=== PATIENT | female | born 1945 | race Caucasian/White ===

== ENCOUNTER 2025-02-01 12:29 | Emergency (ER) | payer MEDICARE, SELFPAY ==
--- OUTSIDE RECORDS SUMMARY | 2024-05-27 05:30 | XMS_ITS ---
Author Organization [facility] Address [address], [address] [place] [address] Care Team Providers Care Nanotechnology Technician Name Role Phone Lorena MAHONEY, Kris Primary Care Provider Unavail able Tom Carl Unavailable [phone] Allergies No Known Allergies REASON FOR VISIT 3 month ear cleaning Medications Medication SIG (Take, Route, Fr equency, Duration) Notes Start Date End Date Status Calcium 600+D Active Klor-Con 10 Active furosemide Active omeprazole Active Vitamin B-100 Active Coreg Active Trelegy Ellipta Acti ve losartan Active chondroitin-glucosamine Active Eliquis Active multivitamin Active Prolia Active Vital Signs Temperature 97.0 degrees Fahrenheit 05/27/20 24 Blood pressure systolic 144 mm Hg 05/27/20 24 Blood pressure diastolic 73 mm Hg 024 Height 65 in 05/27/2024 Weight 227.4 lbs 05/27/2024 BMI 37.84 kg/m2 05/27/2024 Encounters Encounter Location Date Provider Diagnosis [facility] [place] [address], [address] [place] [address] 05/27/2024 Tom Carl Impacted cerumen, bilateral H61.23 Assessments Encounter Date Diagnosis (ICD Code) Assessment Notes Treatment Notes Treatment Clinical Notes Section Notes 05/27/2024 Impacted cerumen, bilateral (ICD-10 - H61.23) Cerumen removed. Bilateral recurrent cerumen. Plan Of Treatment Treatment Notes Assessment Notes Impacted cerumen, bilateral Cerumen femi samuel. Next Appt Details Follow Up: 3 months, Reason: Provider Name:Tom Basilio, 03/17/2025 11:30:00 AM, [address], [facility] [address], [place], [address], Procedure Notes * Category Sub-Category Detail Notes Removal cerumen impaction partial, bilater al EAC removal removed completely, performed under otomicroscopy TM status normal canal status normal Progress Notes * Cristela KIRK BDOB: [birth year] (78 yo F)Acc No.[id number]:05/27/2024 Patient: Cristela RAZA Provider: Breanne Cral M.D. :1945 A ge:78 Y S ex:Female Date:05/27/2024 Address:[address] [place] [address] [facility] Pcp:Kris Carrillo MD Subjective: * Chief Complaints: * 3 month ear cleaning * HPI: E ar/General: Patient returns for ear cleaning. She wears hearing aids and has issues with feedback in the right ear on a recurring basis. Ears last cleaned 3 months ago. * Medical History: * Surgical History: c holecystectomy cataracts 06/2014R knee total replacement 05/25/16R arm 06/2018 * Hospitalization/Major Diagno stic Procedure: s urgery related Afib 3 days in hospital a week after knee replacement on 05/25/16 * Family History: H earing loss < 40: No. B leeding disorder: No. H eart attack < 40: No. M alignant Hyperthermia: No. * Social History: S moking Status: No P atient is a: Never smoker. S moking: No. Alcohol: Yes, less than 5 per week. Chewing tobacco: No. Previous smoker: No. History of alcohol or substance abuse: No. Illicit drug use: No. * Medications: T akingCoreg losartan furosemide omeprazole Vitamin B-100 Calcium 600+D Klor-Con 10 multivitamin Prolia chondroitin-glucosamine Eliquis Trelegy Ellipta Medication List reviewed and reconciled with the patientTaking Coreg Taking losartan Taking furosemide Taking omeprazole Taking Vitamin B-100 Taking Calcium 600+D Taking Klor-Con 10 Taking multivitamin Taking Prolia Taking chondroitin-glucosamine Taking Eliquis Taking Trelegy Ellipta Medication List reviewed and reconciled with the patient * Allergies: N .K.D.A.no[Allergies Verified] Objective: * Vitals: B P: 144/73, Ht: 65, Wt (lbs): 227.4, BMI: 37.84, Temp: 97.0, HR: 71. * Examination: G eneral: External ear: p artial cerumen impaction removed on right, partial cerumen impaction removed on left, microscope used for exam, see procedure note. R ight ear: t ympanic membrane intact. L eft ear: t ympanic membrane intact. ? Assessment: * Assessment: 1. I mpacted cerumen, bilateral - H61.23 (Primary) Bilateral recurrent cerumen. Plan: * Treatment: * Procedures: R emoval cerumen: impaction p artial, bilateral EAC. r emoval r emoved completely, performed under otomicroscopy. T M status n ormal. c anal status n ormal. * Procedure Codes: 9 2504 [id number] DOC MEDS VERIFIED W/PT OR RE * Follow Up: 3 months * Images: * Sign off status: Completed true * Provider: Breanne Carl M.D. Date: Generated for Barbrai ng/Louise/eTransmitting on: 0 02/01/2025 01:32 PM CDT History and Physical Notes * HPI (History of Present Illness) Category Sub-Category Detail Notes Category Not es Ear/General Patient returns for ear cleaning. She wears hearing aids and has issues with feedback in the right ear on a recurring basis. Ears last cleaned 3 months ago. Examination Category Sub-Category Detail Notes Category Not es General External ear: partial cerumen impaction removed on right, partial cerumen impaction removed on left, microscope used for exam, see procedure note Right ear: tympanic membrane in tact Left ear: tympanic membrane in tact
--- OUTSIDE RECORDS SUMMARY | 2024-09-11 07:40 | XMS_ITS ---
Author Organization [facility] Address [address], [address] [place] [address] Care Team Providers Care Certified Real Estate Appraiser Name Role Phone Lorena MAHONEY, Kris Primary Care Provider Unavail able Tom Carl Unavailable [phone] Allergies No Known Allergies REASON FOR VISIT 3 month ear cleaning Medications Medication SIG (Take, Route, Fr equency, Duration) Notes Start Date End Date Status Calcium 600+D Active Vitamin B-100 Active multivitamin Active Klor-Con 10 Active Prolia Active omeprazole Active furosemide Active Coreg Active Trelegy Ellipta Acti ve losartan Active Eliquis Active chondroitin-glucosamine Active Vital Signs Temperature 97.6 degrees Fahrenheit 09/11/19 25 Blood pressure systolic 107 mm Hg 09/11/19 25 Blood pressure diastolic 65 mm Hg 025 Height 65 in 09/11/2024 Weight 235.4 lbs 09/11/2024 BMI 39.17 kg/m2 09/11/2024 Encounters Encounter Location Date Provider Diagnosis [facility] [address], [address] [place] [address] 09/11/2024 Tom Carl Impacted cerumen, bilateral H61.23 Assessments Encounter Date Diagnosis (ICD Code) Assessment Notes Treatment Notes Treatment Clinical Notes Section Notes 09/11/2024 Impacted cerumen, bilateral (ICD-10 - H61.23) Cerumen removed. Bilateral recurrent cerumen. Plan Of Treatment Treatment Notes Assessment Notes Impacted cerumen, bilateral Cerumen femi samuel. Next Appt Details Follow Up: 3 months, Reason: Provider Name:Tom Basilio, 03/17/2025 11:30:00 AM, [address], [facility] [address], [address], [place], [address], Procedure Notes * Category Sub-Category Detail Notes Removal cerumen impaction partial, bilater al EAC removal removed completely, performed under otomicroscopy TM status normal canal status normal Progress Notes * Cristela KIRK BDOB: [birth year] (79 yo F)Acc No.[id number]:09/11/2024 Patient: Cristela RAZA Provider: Breanne Carl M.D. :1945 A ge:79 Y S ex:Female Date:09/11/2024 Address:[address] [place] [address] [facility] Pcp:Kris Carrillo MD Subjective: * Chief Complaints: [...] .K.D.A.no[Allergies Verified] Objective: * Vitals: B P: 107/65, Ht: 65, Wt (lbs): 235.4, BMI: 39.17, Temp: 97.6, HR: 64. * Examination: G eneral: External ear: p [...] n ormal. * Procedure Codes: 9 2504 [id number] DOC MEDS VERIFIED W/PT OR RE * Follow Up: 3 months * Images: * NITIES AND LANGUAGES PROFESSOR Sign off status: Completed true * Provider: Breanne Carl M.D. Date: 0 09/11/2024 Generated for Deirdre ng/Veronikag/eTransmitting on: 0 02/01/2025 01:31 PM CDT History and Physical Notes * [...]
--- OUTSIDE RECORDS SUMMARY | 2024-09-20 00:59 | XMS_ITS | Continuity of Care Document ---
Author Name [facility] Address [address] [place] [address] Organization [facility] Care Team Providers Care Superintendent Recreation Name Role Phone [facility] HIE Unavailable Unavailable Problems Problem Status Onset Date Problem Type Date of Resolution Comme nts Source Pain of left hip joint (finding) 09/19/2024 Diagnosis Results Order Name Results Value Reference Range Date Interpretation Comments Source XR Hip Left w Pelvis XR Hip Left w Pelvis XR General Diagnostic Accession # Exam Date/Time Procedure Ordering Provider [id number] 09/19/2024 12:03 [facility] XR Hip (w or wo Pelvis) Leslye DIAZ, Oralia Camarena Left Reason For Exam (XR Hip (w or wo Pelvis) Left) L hip pain Report EXAMINATION: XR Hip Left w Pelvis INDICATION: L hip pain VIEWS: 2 COMPARISON: None FINDINGS: No fracture. The hip joint spaces are maintained. Severe degenerative changes of the visualized lower lumbar spine. Mild osteoarthritis of the sacroiliac joints. IMPRESSION: No acute fracture or significant hip joint arthritis. I have personally reviewed the images and attest to the contents of this report. * * *Final Report* * * Electronically Signed by: Ashanti Booth MD Signed on: 09/19/24 12:09 09/19 11:52 :47 [facility] Encounters Location Location Details Encounter Type Encounter Number Reason For Visit Attending Provider ADM Date DC Date Status Source [facility] Rad XR Outpatient [id number] Outside Ordering Physician 09/19 17:02 :10 09/20 05:59 :59 [facility] OUTPATIENT [id number] [id number] f/u MAGALI ON CPAP Osei [facility] OUTPATIENT [id number] 6-9m f/u MAGALI ON CPAP Osei [facility] Cancel [facility] Neurology Social History Social History Date Source Social History TypeResponse Sex Female Sex Representation Female (finding) 09/20/2024 [facility]
--- OUTSIDE RECORDS SUMMARY | 2024-12-18 07:40 | XMS_ITS ---
Author Organization [facility] Address [address], [address] [place] [address] Care Team Providers Care Target Setter Name Role Phone Lorena MAHONEY, Kris Primary Care Provider Unavail able Tom Carl Unavailable [phone] Allergies No Known Allergies REASON FOR VISIT 3 month ear cleaning Medications Medication SIG (Take, Route, Fr equency, Duration) Notes Start Date End Date Status Eliquis Active Klor-Con 10 Active multivitamin Active Prolia Active chondroitin-glucosamine Active furosemide Active omeprazole Active losartan Active Vitamin B-100 Active Calcium 600+D Active Coreg Active Trelegy Ellipta Acti ve Vital Signs Temperature 97.3 degrees Fahrenheit 12/19/19 25 Blood pressure systolic 119 mm Hg 12/19/19 25 Blood pressure diastolic 72 mm Hg 025 Height 65 in 12/18/2024 Weight 225 lbs 12/18/2024 BMI 37.44 kg/m2 12/18/2024 Encounters Encounter Location Date Provider Diagnosis [facility] [place] [address] [place] [address] 12/18/2024 Tom Carl Impacted cerumen, bilateral H61.23 Assessments Encounter Date Diagnosis (ICD Code) Assessment Notes Treatment Notes Treatment Clinical Notes Section Notes 12/18/2024 Impacted cerumen, bilateral (ICD-10 - H61.23) Cerumen removed. Bilateral recurrent cerumen. Plan Of Treatment Treatment Notes Assessment Notes Impacted cerumen, bilateral Cerumen femi samuel. Next Appt Details Follow Up: 3 months, Reason: Provider Name:Tom Basilio, 03/17/2025 11:30:00 AM, [address], [place], [address], Procedure Notes * Category Sub-Category Detail Notes Removal cerumen impaction partial, bilater al EAC removal removed completely, performed under otomicroscopy TM status normal canal status normal Progress Notes * Cristela KIRK BDOB: [birth year] (79 yo F)Acc No.[id number]:12/18/2024 Patient: Cristela RAZA Provider: Breanne Carl M.D. :1945 A ge:79 Y S ex:Female Date:12/18/2024 Address:[address] [place] [address] [facility] Pcp:Kris Carrillo MD Subjective: * Chief Complaints: * 3 month ear cleaning * HPI: E ar/General: Patient returns for ear cleaning. She wears hearing aids and has issues with feedback in the right ear on a recurring basis. Ears last cleaned 3 months ago. * Medical History: * Surgical History: c holecystectomy cataracts 06/2014R knee total replacement 05/25/16R arm 06/2018Stomach mass removed 08/2024 * Hospitalization/Major Diagno stic Procedure: s urgery related Afib 3 days in hospital a week after knee replacement on 05/25/16 * Family History: H earing loss < 40: No. B leeding disorder: No. H eart attack < 40: No. M alignant Hyperthermia: No. * Social History: S moking Status P atient is a: Never smoker. S [...] .K.D.A.no[Allergies Verified] Objective: * Vitals: B P: 119/72, Ht: 65, Wt (lbs): 225, BMI: 37.44, Temp: 97.3, HR: 69. * Examination: G eneral: External ear: p [...] n ormal. * Procedure Codes: 9 2504 [id number] DOC MEDS VERIFIED W/PT OR RE * Follow Up: 3 months * Images: * Sign off status: Completed true * Provider: Breanne Carl M.D. Date: 12/18/2024 Generated for Barbrai ng/Veronikag/eTransmitting on: 0 02/01/2025 01:31 PM CDT [...]
[2025-02-01] VITALS (9 sets, daily range): BP systolic 129–150; BP diastolic 65–77; PULSE 60–70; RESP 11–20; TEMP 35.9; O2SAT 94–97; BMI 38.8
--- NOTE | 2025-02-01 12:30 | ED.GENADULT ---
HPI - General Adult General Date Seen: 02/01/25 Chief complaint: Extremity Pain/Injury, Upper Stated complaint: pain down L arm Time Seen by Provider: 02/01/25 12:29 History of Present Illness HPI narrative: 79 yo F with h/o atrial fibrillation, COPD, hypertension. She has no known history of coronary artery disease and reports that she did have a stress test done through her doctors at home and was hurry recently and it was normal. She has no known history of coronary artery disease, peripheral artery disease, or valvular disease. No history of DVT or PE. She is on Eliquis for stroke prophylaxis with a history of paroxysmal AFib. She developed a central chest indigestion feeling associated with the left arm achiness about 4 hours prior to arrival at roughly 9:00 a.m. or shortly after that. She normally lives in [place]. She and her male stained glass glazier (they were both previously and there prior spouse is at ) have been in a relationship for several years. They typically summer at a cabin in [place]. This year, they have decided that they cannot keep up with the maintenance needs of their cabin so they have sold it. They have been in [place] for the past couple of weeks packing and preparing to move away. Her male stained glass glazier actually had a coronary event a few days ago and was hospitalized in [place], [place] for a heart attack. He is doing better now and was discharged home a couple of days ago. They decided that today was the day they are going to pack up their final belongings and moved back to their home in [place]. They had a lot of help packing their belongings from their neighbors. The patient really did not have to do any strenuous lifting or carrying of objects. They will finally had the car packed up and were saying a tearful goodbye to their neighbors at about 9:00 a.m.. Shortly after getting in the car the patient began to have her symptoms of indigestion in her chest and left arm discomfort. Symptoms have been present continuously since onset. She initially attributed the symptoms simply to grief and stress. She also tried to attribute them to possibly lifting something or pulling a muscle. However since symptoms were not going away, she was concerned about having a coronary [place] [employer] [place] so decided to stop here in [place] just to get checked out. As she is here she still has mild symptoms. They are really not changing for better or for worse. She says she is not sure if she really needs to be checked out but she she just wants to make sure she is not having heart attack. She has no recent falls. No injury. She is not having any cough or shortness of breath. No fever She does have chronic left> right lower extremity edema. Is not changed from baseline. She is not having any palpitations or symptoms that she would attribute to her bouts of AFib. She then taking all of her meds lately including her apixaban, furosemide, omeprazole, verapamil as well as allopurinol, all follow-up pelvic acid, calcium, Trelegy Ellipta, potassium Related Data Home Medications ?Medication ?Instructions ?Recorded ?Confirmed allopurinol 100 mg tablet 100 mg PO DAILY 02/01/25 02/01/25 alpha lipoic acid 600 mg capsule 600 mg PO DAILY 02/01/25 02/01/25 apixaban 5 mg tablet (Eliquis) 5 mg PO BID 02/01/25 02/01/25 calcium citrate 600 mg PO DAILY 02/01/25 02/01/25 carvedilol 6.25 mg tablet 6.25 mg PO BID 02/01/25 02/01/25 fluticasone fur. 100 mcg-umeclid 1 inh inhalation DAILY 02/01/25 02/01/25 62.5 mcg-vilant 25 mcg inhalat.powder (Trelegy Ellipta) furosemide 40 mg tablet 40 mg PO DAILY 02/01/25 02/01/25 losartan 25 mg tablet (Cozaar) 25 mg PO DAILY 02/01/25 02/01/25 omeprazole 40 mg capsule,delayed 40 mg PO BID 02/01/25 02/01/25 release potassium chloride 20 mEq 20 meq PO DAILY 02/01/25 02/01/25 tablet,extended release tirzepatide (weight loss) subcut 02/01/25 verapamil 180 mg 24 hr 180 mg PO DAILY 02/01/25 02/01/25 capsule,extended release Allergies Allergy/AdvReac Type Severity Reaction Status Date / Time No Known Drug Allergies Allergy Verified 02/01/25 12:36 PFSH PFSH Social History Smoking Status: Never smoker How often do you have a drink containing alcohol: never AUDIT-C Alcohol total score: 0 Non-prescribed substance use: denies use Exam Narrative: Exam Narrative: Constitutional: Appears well-developed and well-nourished. Alert. Conversant. Non toxic. HENT: Head: Atraumatic. Nose: Nose normal. Mouth/Throat: Oral mucosa is clear and moist. no trismus. Pharynx normal. Tonsils symmetric. No tonsillar enlargement, erythema, or exudate. Eyes: Conjunctivae normal. EOM normal. Pupils equal, round, and reactive to light. No scleral icterus. Neck: Normal range of motion. Neck supple. No tracheal deviation present. No JVD Cardiovascular: Normal rate, regular rhythm. No gallop. No friction rub. No murmur heard. Symmetric radial artery pulses Pulmonary/Chest: Effort normal. No stridor. No respiratory distress. No wheezes. No rales. No rhonchi . No tenderness. Abdominal: Soft. Bowel sounds normal. No distension. No mass. No tenderness. No rebound. No guarding. Musculoskeletal: RUE: Normal range of motion. No tenderness. No deformity LUE: Normal range of motion. No tenderness. No deformity RLE: Normal range of motion. 1+ edema. No tenderness. No deformity LLE: Normal range of motion. 2+ edema. No tenderness. No deformity Neurological: Alert and oriented to person, place, and time. Normal strength. CN II-VII intact. No sensory deficit. GCS eye subscore is 4. GCS verbal subscore is 5. GCS motor subscore is 6. Normal coordination Skin: Skin is warm and dry. No rash noted. No pallor. Normal capillary refill. Psychiatric: Normal mood. Normal affect. Const: Vital Signs, click to edit/add: Vital Signs - 24 hr 02/01/25 12:37 02/01/25 13:13 02/01/25 13:30 Temperature 96.7 F L Pulse Rate 66 67 Pulse Rate [Pulse Oximeter] 70 Respiratory Rate 18 13 18 Blood Pressure 136/73 150/72 H Blood Pressure [Ri ght Upper Arm] 134/77 Pulse Oximetry 95 94 96 Oxygen Delivery Me thod Room Air 02/01/25 13:33 02/01/25 13:36 02/01/25 13:42 Temperature Pulse Rate 64 66 65 Pulse Rate [Pulse Oximeter] Respiratory Rate 11 L 11 L 20 Blood Pressure 143/75 H 137/65 132/68 Blood Pressure [Ri ght Upper Arm] Pulse Oximetry 97 96 94 Oxygen Delivery Me thod 02/01/25 13:52 02/01/25 13:56 02/01/25 14:02 Temperature Pulse Rate 65 65 60 Pulse Rate [Pulse Oximeter] Respiratory Rate 16 15 16 Blood Pressure 131/73 133/74 129/75 Blood Pressure [Ri ght Upper Arm] Pulse Oximetry 97 96 94 Oxygen Delivery Me thod Course Course ED Course: Recheck-1st troponin EKG nonischemic. Discussed with the patient and her stained glass glazier. She is reluctant to stay for a delta troponin rule out. After detailed discussion of aha guidelines, I think that the bare minimum would be to check a 2 hour delta troponin. She does not want stay that long. She ultimately will agree to stay for a 1 hour 40 minute troponin. Although that is not really up to the standard of care, I think any recheck is better than none. Vital Signs Vital signs: Initial Vital Signs Temperature 96.7 F L 02/01/25 12:37 Temperature Source Temporal Artery Scan 02/01/25 12:37 Pulse Rate 70 02/01/25 12:37 Pulse Rhythm Regular 02/01/25 12:37 Respiratory Rate 18 02/01/25 12:37 Blood Pressure 134/77 02/01/25 12:37 Blood Pressure Mean 96 02/01/25 12:37 Blood Pressure Position Sitting 02/01/25 12:37 Pulse Oximetry 95 02/01/25 12:37 Oxygen Delivery Method Room Air 02/01/25 12:37 Vital Signs Temperature 96.7 F L 02/01/25 12:37 Pulse Rate 70 02/01/25 12:37 Respiratory Rate 18 02/01/25 12:37 Blood Pressure 134/77 02/01/25 12:37 Pulse Oximetry 95 02/01/25 12:37 Oxygen Delivery Method Room Air 02/01/25 12:37 Temperature 96.7 F L 02/01/25 12:37 Pulse Rate 60 02/01/25 14:02 Respiratory Rate 16 02/01/25 14:02 Blood Pressure 129/75 02/01/25 14:02 Pulse Oximetry 94 02/01/25 14:02 Oxygen Delivery Method Room Air 02/01/25 12:37 Medications Administered Medications: Generic Name Dose Route Start Last Admin Trade Name Freq PRN Reason Stop Dose Admin Nitroglycerin 0.4 mg 02/01/25 13:08 02/01/25 13:30 Nitroglycerin 0.4 Mg Tab.Subl SUBLINGUAL 0.4 mg Q5M PRN Administration Discontinued Medications Generic Name Dose Route Start Last Admin Trade Name Breann PRN Reason Stop Dose Admin Aspirin 162 mg 02/01/25 13:08 02/01/25 13:30 Aspirin 81 Mg Tab.Chew PO 02/01/25 13:09 162 mg ONCE ONE Administration Medical Decision Making MDM Narrative Medical decision making narrative: This patient presents to the ER today for evaluation of chest discomfort like indigestion and left arm achiness that began this morning at about 9 or 9:30 a.m.. Differential was broad. No evidence of palpitations, syncope or other cardiac dysrhythmia. We considered possible ACS, however workup with EKG and initial troponin is negative. Given time since onset of symptoms, I did recommend that we check at minimum a 2nd set of troponin drawn 2 hours out from the 1st draw. Patient does not want to wait the full 2 hours. We discussed that [place] [employer] guidelines recommend at minimum a 2-3 hour troponin repeat time. She does not want a wait 2 hours per. He she was initially not wanting any repeat troponin at all. After discussion she then agreed to stay for a 2nd draw to be at 2:45 p.m. with his about 1 hour and 40 minutes after the 1st. Her 2nd troponin also undetectable.. Patient and her male stained glass glazier understand that this timeframe does not meet the guidelines from [place] hard to say she a miranda. They understand the risks but the patient really does not think this is truly ACS and does not want to stay full to hours. I feel that at least some 2nd troponin measurement is better than no recheck at all. EKG shows no evidence for pericarditis. Clinical presentation not suggestive of myocarditis. Chest x-ray shows no evidence for pneumonia, pneumothorax, pulmonary edema, pleural effusion, rib fracture, cardiomegaly. Mediastinum is normal on the x-ray. The patient has no ripping or tearing pain through to the back and has symmetric pulses on exam, no other acute neuro findings so I doubt aortic dissection. Risk of radiation and contrast exposure would outweigh the benefit of CT angiogram. We considered PE for this patient. She is therapeutically consult consistently anti coagulated with Eliquis. INR is abnormal suggesting that she has been taking Eliquis as per her history. She is not short of breath, tachypneic, tachycardic, or hypoxic. Therefore we feel that the risk of contrast nephropathy from CT dye would outweigh the benefit of CT pulmonary angiogram. No wheezing or bronchospasm to suggest COPD/asthma. No signs of chest wall cellulitis, shingles, injury. There is no clear musculoskeletal component with her left arm or shoulder. Patient suspects that she might be feeling grief and stress because she was very said to be selling her cabin in [place] and moving away from her friends there. Additional stressor is that her male stained glass glazier was just hospitalized in [place] a couple of days ago. It sounds like he either had a heart attack or perhaps renal failure with dangerous hyperkalemia. He is doing better now and he is calmly in supportively at her bedside. They are both eager to get home to [place]. With reasonable clinical confidence, I think the patient is safe for outpatient follow up. Discussed return precautions. Questions answered. Patient voices comfort with the plan. Lab Data Labs: Lab Results 02/01/25 02/01/25 Range/Units 13:05 13:08 WBC 7.04 (4.50-11.00) K/uL RBC 3.92 L (4.00-5.20) m/uL Hgb 12.4 (12.0-16.0) gm/dL Hct 37.4 (33.0-51.0) % MCV 95 (80-100) fL MCH 32 (26-34) pg MCHC 33 (32-36) gm/dL RDW Coeff of Jennifer 13.1 (11.5-15.5) % Plt Count 253 (140-440) K/uL Neut % (Auto) 61.5 (42.0-72.0) % Lymph % (Auto) 25.0 (20-44) % Runnels % (Auto) 12.2 H (0.0-11.0) % Eos % (Auto) 0.7 (0.0-7.0) % Baso % (Auto) 0.6 (0.0-3.0) % Neut # (Auto) 4.33 (1.7-7.0) K/uL Lymph # (Auto) 1.76 (0.90-2.90) K/uL Runnels # (Auto) 0.90 (0.00-0.90) K/UL Eos # (Auto) 0.05 (0.00-0.50) K/uL Baso # (Auto) 0.04 (0.00-0.30) K/uL Abs Immat Gran (auto) 0.00 (0.00-0.30) K/uL Imm/Tot Granulo (auto) 0.0 % INR 1.40 H (0.91-1.10) Sodium 137 (135-149) mmol/L Potassium 3.4 L (3.6-5.1) mmol/L Chloride 101 (96-114) mmol/L Carbon Dioxide 30 (20-32) mmol/L Anion Gap 6 L (7-15) mEq/L BUN 26 (7-30) mg/dL Creatinine 1.0 (0.5-1.5) mg/dL Estimated Creat Clear 34.90 Estimated GFR 57 ml/min Glucose 87 (60-115) mg/dL Calcium 9.6 (8.4-10.6) mg/dL POC Troponin I 0.00 L (0.01-0.04) ng/ml Imaging Data Chest x-ray: Attestation: I have reviewed the pertinent imaging results. My impression: Normal cardiac silhouette. Normal mediastinum. Clear lungs perez. Radiologist's impression: IMPRESSION: 1. No acute cardiopulmonary disease is seen. ECG Data Attestation: I personally reviewed and interpreted this ECG as follows: Interpretation: Normal sinus rhythm with 1st degree AV block Rate: 67 HI: 202 QRS axis: Normal axis. No pathologic Q-waves. ST segment/T wave: No ST segment elevation or depression. Nonspecific T-wave flattening in lead aVL, he wave inversion in lead AVR. Flattening in leads V1. QTc: 424 No old EKGs available for comparison Discharge Plan Discharge Clinical Impression: Chest discomfort Patient Disposition: Home, Self-Care Condition: Stable Instructions: Chest Pain (DC) Additional Instructions: As we discussed, based on your workup here in the ER we have not found any evidence for heart attack yet. Please monitor your symptoms carefully and if you get worse or have any other new concerning symptoms, please return to your nearest ER right away. Even if you get better, please recheck with your regular doctor within 1 week. Please continue on your regular medications for now. Good luck! Prescriptions: No Action verapamil 180 mg capsule,ext rel. pellets 24 hr 180 mg PO DAILY carvedilol 6.25 mg tablet 6.25 mg PO BID Rx Instructions: must administer with a meal/food omeprazole 40 mg capsule,delayed release(DR/EC) 40 mg PO BID potassium chloride 20 mEq tablet extended release 20 meq PO DAILY furosemide 40 mg tablet 40 mg PO DAILY Eliquis 5 mg tablet 5 mg PO BID allopurinol 100 mg tablet 100 mg PO DAILY losartan [Cozaar] 25 mg tablet 25 mg PO DAILY Trelegy Ellipta 100-62.5-25 mcg blister with device 1 inh inhalation DAILY calcium citrate 200 mg (950 mg) tablet 600 mg PO DAILY tirzepatide (weight loss) [Zepbound] subcut alpha lipoic acid 600 mg capsule 600 mg PO DAILY Follow Up/Referrals: Provider,Not a Local [Primary Care Provider, Family Practice] Stand Alone Forms: MyHealth Info Instructions
--- NOTE | 2025-02-01 13:07 | CRLHL7_ITS ---
For Patients: As a result of the Cures Act, medical imaging exams and procedure reports are released immediately into your electronic medical record. You may view this report before your referring provider. If you have questions, please contact your health care provider. INDICATION: Chest discomfort, left arm pain TECHNIQUE: Chest radiograph 2 views COMPARISON: None FINDINGS: The sensitivity and specificity of the exam are moderately limited by the patient`s body habitus. Mediastinum: The central pulmonary arteries are near the upper limits of normal in size. The cardiac silhouette is at upper limits of normal in size. Lung: Both lungs are unremarkable in appearance. No sign of pleural effusion seen. No pneumothorax is identified. Bone and Soft tissue: Levoscoliosis of the lumbar spine is partially seen. IMPRESSION: 1. No acute cardiopulmonary disease is seen. Dictated by Ismael Sinclair MD @ 02/01/2025 1:28:36 PM Dictated by: Ismael Sinclair MD @ 02/01/2025 13:28:38 (Electronically Signed)
[2025-02-01 13:16] LABS: Basophils Absolute Auto 0.04 K/uL (0.00-0.30); Basophils Percent Auto 0.6 % (0.0-3.0); Eosinophils Absolute Auto 0.05 K/uL (0.00-0.50); Eosinophils Percent Auto 0.7 % (0.0-7.0); Hematocrit 37.4 % (33.0-51.0); Hemoglobin* 12.4 gm/dL (12.0-16.0); Lymphocytes Absolute Auto 1.76 K/uL (0.90-2.90); Mean Corpuscular HGB Conc 33 gm/dL (32-36); Mean Corpuscular Hemoglobin 32 pg (26-34); Mean Corpuscular Volume 95 fL (80-100); Monocytes Percent Auto 12.2 % (0.0-11.0); Neutrophils Absolute Auto 4.33 K/uL (1.7-7.0); Neutrophils Percent Auto 61.5 % (42.0-72.0); Platelet Count* 253 K/uL (140-440); RDW Coefficient of Variation % 13.1 % (11.5-15.5); Red Blood Count 3.92 m/uL (4.00-5.20); White Blood Count* 7.04 K/uL (4.50-11.00)
[2025-02-01 13:20] LABS: Slide Review Reflex No
[2025-02-01 13:30] LABS: Chloride* 101 mmol/L (96-114); Potassium* 3.4 mmol/L (3.6-5.1); Sodium* 137 mmol/L (135-149)
[2025-02-01] MEDS: ASPIRIN 81 MG TAB.CHEW 162 MG PO (13:30)
[2025-02-01] MEDS: NITROGLYCERIN 0.4 MG TAB.SUBL SUBLINGUAL (13:30)
--- OUTSIDE RECORDS SUMMARY | 2025-02-01 13:31 | XMS_ITS | Patient Health Record ---
Author Organization [facility] Address [address] [place] [address] Care Team Providers Care Pelts Skinner Name Role Phone Lorena MAHONEY, Kris Primary Care Provider Unavail able Tom Carl Unavailable [phone] Allergies No Known Allergies Reason For Referral No Information Medications Medication SIG (Take, Route, Fr equency, Duration) Notes Start Date End Date Status Eliquis Active furosemide Active omeprazole Active Coreg Active Trelegy Ellipta Acti ve losartan Active Klor-Con 10 Active multivitamin Active Vitamin B-100 Active Calcium 600+D Active Prolia Active chondroitin-glucosamine Active Problems Problem Type SNOMED Code ICD Code Onset Dates Problem Status W/U Status Risk Notes Problem Cerumen (03213747) Cerumen (380.4) Active confirmed Problem Sensorineural hearing loss, bilateral (253413341) Hearing loss, sensorineural, bilateral (389.18) Active confirmed Problem Head and neck symptoms, not elsewhere classified (784.99) Active confirmed Problem Impacted cerumen (89602085) Impacted cerumen, right ear (H61.21) Active confirmed Problem Impacted cerumen (73906127) Impacted cerumen, bilateral (H61.23) Active confirmed Problem Sensorineural hearing loss of bilateral ears (disorder) (198820938) Sensorineural hearing loss, bilateral (H90.3) Active confirmed Problem 80757830 Cerumen impactio n (H61.20) Active confirmed Problem Impacted cerumen (64672766) Cerumen debris on tympanic membrane of left ear (H61.22) Active confirmed Problem Impacted cerumen (19823373) Cerumen debris on tympanic membrane of right ear (H61.21) Active confirmed Vital Signs Temperature 97.3 degrees Fahrenheit 12/18/2024 Blood pressure diastolic 72 mm Hg 12/18/2024 Height 65 in 12/18/2024 Blood pressure systolic 119 mm Hg 12/18/2024 Weight 225 lbs 12/18/2024 BMI 37.44 kg/m2 12/18/2024 Encounters Encounter Location Date Provider Diagnosis [facility] [place] [address] [place] [address] 02/12/2024 Tom Carl Impacted cerumen, bilateral H61.23 [facility] [place] [address] [place] [address] 05/27/2024 Tom Carl Impacted cerumen, bilateral H61.23 [facility] [place] [address] [place] [address] 09/11/2024 Tom Carl Impacted cerumen, bilateral H61.23 [facility] [place] [address] [place] [address] 12/18/2024 Tom Carl Impacted cerumen, bilateral H61.23 [facility] [address], [address] [place] [address] 02/05/2024 Tom Carl Assessments Encounter Date Diagnosis (ICD Code) Assessment Notes Treatment Notes Treatment Clinical Notes Section Notes 02/12/2024 Impacted cerumen, bilateral (ICD-10 - H61.23) Cerumen removed. Bilateral recurrent cerumen. 05/27/2024 Impacted cerumen, bilateral (ICD-10 - H61.23) Cerumen removed. Bilateral recurrent cerumen. 09/11/2024 Impacted cerumen, bilateral (ICD-10 - H61.23) Cerumen removed. Bilateral recurrent cerumen. 12/18/2024 Impacted cerumen, bilateral (ICD-10 - H61.23) Cerumen removed. Bilateral recurrent cerumen. Plan Of Treatment Next Appt Details Provider Name:Tom Basilio, 03/17/2025 11:30:00 AM, [address], [place], [address], Insurance Providers Payer Name Payer Address Payer Phone Subscriber Number Group Number Insured Name Patient Relationship to Insured Coverage Start Date Coverage End Date CMS Medicare [address] [address] [place] [address] [id number] Cristela Kirk Self - patient is the insured [facility] [employer] [place] [address] [place] [address] [phone] [id number] Plan N Cristela Kirk Self - patient is the insured Medical (General) History Medical History History ICD Code HTN: Yes heart disease: No heart attack: No diabetes: No cancer: No asthma: No COPD: No kidney disease: No stroke: No blood clots: No cancer, skin: No arthritis: Yes anemia: No lymphoma: No leukemia: No GERD: Yes cholesteatoma: No chronic ear infections: No Surgical History Surgery Date(Month/Year) Stomach mass removed 08/2024 R arm 06/2018 R knee total replacement 05/25/16 cataracts 06/2014 cholecystectomy Hospitalization History Reason Date(Month/Year) Afib 3 days in hospital a week after kne e replacement on 05/25/16 surgery related
--- OUTSIDE RECORDS SUMMARY | 2025-02-01 13:32 | XMS_ITS | Data Portability ---
Author Organization [facility] , MAIN OFFICE Address [address] [place] [id number] Assessment No assessment recorded. Plan of Treatment Reminders Order Date Submit Date Provider Last Modified By Organization Details Last Modified Time Details Appointments LAB WORK 2024 07:00A M Not available Not available Not available FOLLOW UP 2024 10:00A M Dr. Isela Jeter M.D. Not available Not available Not available Lab None recorded. Referral None recorded. Procedures body compositi on analysis (PROC) 2024 025 [facility], [address] [place] [address], [address], [address], 09/30/2024 16:19:48 gait test (PROC) 2024 025 [facility], [address] [place] [address], [address], [address], 09/30/2024 16:20:31 body compositi on analysis (PROC) 2023 024 [facility], [address] [place] [address], [address], [address], 09/13/2023 15:14:48 gait test (PROC) 2023 024 [facility], [address] [place] [address], [address], [address], 09/13/2023 15:15:16 Surgeries None recorded. Imaging audiogram [address] [facility], [address], [address], [address], 10/01/2024 08:03:23 electroca rdiogram [address] [facility], [address], [address] [place] [address], [address], 10/01/2024 08:03:23 ankle brachial index [address] [facility], [address], [address], [address], 10/01/2024 08:03:[address] [facility], [address], [address], [address], 09/13/2023 15:35:07 electroca rdiogram [address] [facility], [address] [place] [address], [address], [address], 09/13/2023 15:35:07 ankle brachial index [address] [facility], [address], [address], [address], 09/13/2023 15:35:07 Medication Orders Wegovy 0.25 mg/0.5 mL subcutane ous pen injector 2023 024 [facility] [address] [place], [address], 09/30/2024 15:17:57 Medrol (Alberto) 4 mg tablets in a dose pack 2023 024 [facility] [address] [place], [address], 07/31/2024 11:10:00 Patient TargetsNo targets recorded. Patient Instructions Encounter Date Encounter Id Patient Instructions Last Modified By Organization Details Last Modified Time 09/13/2023 [id number] spirometry testing* lscoles Not available 09/13/2023 15:14:52 visual acuity* lscoles Not available 0 09/13/2023 15:14:55 mds manager test* lscoles Not available 09/13 15:15:07 f/u in 3-4 month s with CBC, BMP, FLP,SGOT. Cardiac stress test. lscoles Not available 09/13/2023 15:16:02 12/17/2023 [id number] BMP,CBC, proBNP, FLP,SGOT lscoles Not available 12/17/2023 13:35:01 03/24/2024 [id number] Needs more weigh t loss. See recs above. f/u in 3 months with BMP, CBC, proBNP. lscoles Not available 03/24/2024 13:17:16 09/30/2024 [id number] spirometry testing* lscoles Not available 09/30/2024 16:19:52 visual acuity* lscoles Not available 0 09/30/2024 16:19:55 mds manager test* lscoles Not available 09/30 16:20:09 FLP,SGOT, BMP, CBC prior to return. lscoles Not available 09/30/2024 16:22:28 Reason for Referral None Reported. Results Created Date Observation Date Name Description Value Unit Range Abnormal Flag Note LastModifiedBy Organization Detail LastModifiedTime 08/29/19 24 08/29/2023 HSCRP hs-CRP 7.0 mg/L <1.0 high The AHA/C DC Guide lines recom mend hs-CR P range s for ident ifyin g Relat steve Cardi ovasc ular Risk in patie nts ages >17 years : <1.0 mg/L Lower Relat steve Cardi ovasc ular Risk; 1.0-3 .0 mg/L [place] ge Relat steve Cardi ovasc ular Risk; 3.1-1 0.0 mg/L Highe r Relat steve Cardi ovasc ular Risk. For patie nts with highe r cardi ovasc ular risk, consi karli retes ting in 1-2 weeks to exclu de a benig n trans ient eleva tion secon dilip to infec tion or infla mmati on from the basel ine CRP value . Persi stent eleva tions of >10.0 mg/L upon retes ting may be assoc iated with infec tion and infla mmati on. The AHA/C DC recom menda tions are based on Pears on TA et al. Circu latio n. 2003; 107:4 99-51 1. Not Available [facility] - Manual Order Only [address], [place], [address], 09/02/2023 17:45:06 08/29/19 24 08/29/2023 HEMOG LOBIN A1C HbA1C 5.1 % <5.7 For the purpo se of scremj cantrellg for the prese nce of diabe oc: <5.7% is consi stent with the absen ce of diabe oc; 5.7-6 .4% is consi stent with incre ased risk for diabe oc (pred iabet es); >= 6.5% is consi stent with diabe oc. This assay resul t is consi stent with a decre ased risk of diabe oc. Curre ntly, no conse nsus exist s nico gonsales use of hemog lobin A1c for diagn osis of diabe oc in child cynthia. Accor ding to Ameri can Diabe oc Assoc iatio n (ADA) guide lines , hemog lobin A1c <7.0% repre sents optim al contr ol in non-p regna nt diabe tic patie nts. Diffe rent metri cs may apply to speci fic patie nt popul ation s. Stand ards of Medic al Care in Diabe oc (ADA) . Not Available [facility] - Manual Order Only [address], [place], [address], 09/02/2023 17:45:06 08/29/19 24 08/29/2023 HEMOG LOBIN A1C estimated average glucose 100 mg/dL <117 The estim ated avera ge gluco se value is an adjun ct to the treat ment of both Type I and Type II Diabe oc. It is not inten ded for the diagn osis or risk asses sment of patie nts witho ut diabe oc. (Refe rence : Mitchel MORENO et al. Diabe oc Care 2008; 31:14 73-14 78). Not Available [facility] - Manual Order Only [address], [place], [address], 09/02/2023 17:45:06 08/29/19 24 08/29/2023 LIPID PANEL W/ TG/HD L-C (ORDE RED WITH LIPOP ROTEI N, NMR) cholesterol, total 197 mg/dL <200 Not Available [facility] - Manual Order Only [address], [place], [address], 09/02/2023 17:45:07 08/29/19 24 08/29/2023 LIPID PANEL W/ TG/HD L-C (ORDE RED WITH LIPOP ROTEI N, NMR) HDL cholesterol 61 mg/dL >49 Not Available [facility] - Manual Order Only [address], [place], [address], 09/02/2023 17:45:07 08/29/19 24 08/29/2023 LIPID PANEL W/ TG/HD L-C (ORDE RED WITH LIPOP ROTEI N, NMR) triglyceride s 114 mg/dL <150 Not Available [facility] - Manual Order Only [address], [place], [address], 09/02/2023 17:45:07 08/29/19 24 08/29/2023 LIPID PANEL W/ TG/HD L-C (ORDE RED WITH LIPOP ROTEI N, NMR) LDL cholesterol 114 mg/dL _(solange c) <100 high [place] able range <100 mg/dL for prima ry preve ntion ; <70 mg/dL for patie nts with CHD or diabe tic patie nts with >= 2 CHD risk facto rs. LDL-C is now calcu lated using the Shweta n-Hop kins calcmaggie zaman n, which is a valid ated novel metho d aviva morlaes than the Fried lev equat ion in the estim ation of LDL-C . Shweta parr SS et al. NATALIE. 2013; 310(1 9): 2061- 2068 (http ://ed ucati onNasza-klasa.pl. [employer]/f aq/FA Q164) Not Available [facility] - Manual Order Only [address], [place], [address], 09/02/2023 17:45:07 08/29/19 24 08/29/2023 LIPID PANEL W/ TG/HD L-C (ORDE RED WITH LIPOP ROTEI N, NMR) chol/HDL-C 3.2 calc <5.0 Not Available [facility] Order Only [address], [place], [address], 09/02/2023 17:45:07 08/29/19 24 08/29/2023 LIPID PANEL W/ TG/HD L-C (ORDE RED WITH LIPOP ROTEI N, NMR) non-HDL cholesterol 136 mg/dL _(solange c) <130 high For patie nts with diabe oc plus 1 major ASCVD risk facto r, treat ing to a non-H DL-C goal of <100 mg/dL (LDL- C of <70 mg/dL ) is zacheryi bouchra matson optio n. Not Available [facility] - Manual Order Only [address], [place], [address], 09/02/2023 17:45:07 08/29/19 24 08/29/2023 LIPID PANEL W/ TG/HD L-C (ORDE RED WITH LIPOP ROTEI N, NMR) TG/HDL-C 1.9 calc <2.0 Not Available [facility] - Manual Order Only [address], [place], [address], 09/02/2023 17:45:07 08/29/19 24 08/29/2023 MYELO PEROX IDASE myeloperoxid ase 327 pmol/ L <470 Based on a high risk sub-p opula tion (N=92 0) defin ed as ambul atory stabl e patie nts witho ut acute coron usama syndr ome who under went elect steve diagn ostic coron usama angio graph y (1) and a refer ence range study of appar ently healt hy donor s, we have defin ed the follo wing cut-o ffs for MPO: A cut-o ff of <470 pmol/ L defin es an 'appa rentl y healt hy' popul ation at optim al relat steve risk for a cardi ovasc ular event , 470-5 39 pmol/ L defin es a popul ation at moder ate relat steve risk for a cardi ovasc ular event (2-fo ld incre ased risk of MACE at 3 years ), and > = 540 pmol/ L defin es a popul ation with a high relat steve risk for a cardi ovasc ular event . (Refe rence : 1. Bobby et al. Am J Cardi ol. 2013; 111:4 65-47 0 and perso nal commu nicat ion with Bobby et al). This test was devel oped and its elo tical perfo rmanc e kim cteri stics have been deter mined by [facility] [place] [facility] at [facility]. It has not been clear ed or appro samuel by the U.S. Food and Drug Admin istra tion. This assay has been valid ated pursu ant to the CLIA regul ation s and is used for clini solange purpo ses. Not Available [facility] - Manual Order Only [address], [place], [address], 09/02/2023 17:45:07 08/29/19 24 08/29/2023 VITAM IN D 25 HYDRO XY LC-MS /MS vitamin D 25 hydroxy by lc-MS/MS 31.1 NG/mL >29.9 Vitam in D, 25-Hy droxy repor ts valencia ntrat ions of two commo n forms , 25-OH D2 and 25-OH D3. 25-OH D3 indic ates both endog enous produ ction and suppl ement ation . 25-OH D2 is an indic ator of exoge nous sourc es, such as diet or suppl ement ation . Thera py is based on measu remen t of Total 25-OH D, with level s <20 ng/mL indic ative of Vitam in D defic iency , while level s betwe en 20 ng/mL and 30 ng/mL sugge st insuf ficie ncy. Optim al level s are >=30 ng/mL . For addit ional infor bridget knight e refer to http: //[facility] catnanette n.que stdia gnost ics.c om/fa q/FAQ 199(T his link is being provi ded for infor dennis n/[facility] catio nal purpo ses only. )This test was devel oped and its elo tical perfo rmanc e kim cteri stics have been deter mined by [facility] [employer] [facility] [employer] at [facility]. It has not been clear ed or appro samuel by the U.S. Food and Drug Admin istra tion. This assay has been valid ated pursu ant to the CLIA regul ation s and is used for clini solange purpo ses. Not Available [facility] - Manual Order Only [address], [place], [address], 09/02/2023 17:45:08 08/29/19 24 08/29/2023 LIPOP ROTEI N FRACT IONAT ION, NMR W/LIP ID PANEL LDL-P 1120 nmol/ L <935 high Relat steve risk: Optim al <935; Moder ate 935-1 816; High >1816 nmol/ L. Refer ence range is 592-2 404 nmol/ L. This test was devel oped and its elo tical perfo rmanc e kim cteri stics have been deter mined by [facility] [employer] at [facility]. It has not been clear ed or appro samuel by the U.S. Food and Drug Admin istra tion. This assay has been valid ated pursu ant to the CLIA regul ation s and is used for clini solange purpo ses. Not Available [facility] - Manual Order Only [address], [place], [address], 09/02/2023 17:45:08 08/29/1908/29/2023 LIPOP ROTEI N FRACT IONAT ION, NMR W/LIP ID PANEL small LDL-P 295 nmol/ L <467 Relat steve risk: Optim al <467; Moder ate 467-8 20; High >820 nmol/ L. Refer ence range is <1408 nmol/ L. Not Available [facility] - Manual Order Only [address], [place], [address], 09/02/2023 17:45:08 08/29/19 24 08/29/2023 LIPOP ROTEI N FRACT IONAT ION, NMR W/LIP ID PANEL LDL size 21.5 nm >20.5 Relat steve risk: Optim al >20.5 ; High <20.6 nm. Refer ence range is 20.0- 22.3 nm. Not Available [facility] - Manual Order Only [address], [place], [address], 09/02/2023 17:45:08 08/29/19 24 08/29/2023 LIPOP ROTEI N FRACT IONAT ION, NMR W/LIP ID PANEL HDL-P 39.3 umol/ L >32.8 Relat steve risk: Optim al >32.8 ; Moder ate 29.2- 32.8; High <29.2 umol/ L. Refer ence range is 21.1- 43.4 umol/ L. Not Available [facility] - Manual Order Only [address], [place], [address], 09/02/2023 17:45:08 01/03/08/29/2023 LIPOP ROTEI N FRACT IONAT ION, NMR W/LIP ID PANEL large HDL-P 8.8 umol/ L >7.2 Relat steve risk: Optim al >7.2; Moder ate 5.3-7 .2; High <5.3 umol/ L. Refer ence range is >3.5 umol/ L. Not Available [facility] - Manual Order Only [address], [place], [address], 09/02/2023 17:45:08 08/29/1908/29/2023 LIPOP ROTEI N FRACT IONAT ION, NMR W/LIP ID PANEL HDL size 9.3 nm >9.0 Relat steve risk: Optim al >9.0; Moder ate 8.7-9 .0; High <8.7 nm. Refer ence range is 8.3-1 0.5 nm. Not Available [facility] - Manual Order Only [address], [place], [address], 09/02/2023 17:45:08 08/29/1908/29/2023 LIPOP ROTEI N FRACT IONAT ION, NMR W/LIP ID PANEL large VLDL-P 3.0 nmol/ L <3.7 Relat steve risk: Optim al <3.7; Moder ate 3.7-6 .1; High >6.1 nmol/ L. Refer ence range is <16.0 nmol/ L. Not Available [facility] - Manual Order Only [address], [place], [address], 09/02/2023 17:45:08 08/29/1908/29/2023 LIPOP ROTEI N FRACT IONAT ION, NMR W/LIP ID PANEL VLDL size 48.3 nm <47.1 high Relat steve risk: Optim al <47.1 ; Moder ate 47.1- 49.0; High >49.0 nm. Refer ence range is 41.1- 61.7 nm. Not Available [facility] - Manual Order Only [address], [place], [address], 09/02/2023 17:45:08 08/29/19 24 08/29/2023 THYRO ID STIMU LATIN G HORMO NE (TSH) thyroid stimulating hormone (TSH) 2.32 mlu/L 0.40-4 .50 For addit ional infor bridget knight e refer to http: //[facility] bindu wyattQue stDia gnost ics.c om/fa q/FAQ 138 This test was perfo rmed using the Sieme ns TSH immun oassa y metho d. Value s obtai jon with previ ous assay metho ds canno t be used inter bush eably . Not Available [facility] - Manual Order Only [address], [place], [address], 09/02/2023 17:45:09 08/29/19 24 08/29/2023 URIC ACID uric acid 5.2 mg/dL 2.5-7. 3 Not Available [facility] - Manual Order Only [address], [place], [address], 09/02/2023 17:45:09 08/29/19 24 08/29/2023 AST aspartate amino transferase 30 units /L 10-45 Speci men was sligh tly hemol yzed, hemol ysis incre ases AST resul ts. Not Available [facility] [address] [place], [address], 08/29/2023 11:59:54 08/29/19 24 08/29/2023 BASIC METAB OLIC PANEL sodium 140 mmol/ L 135-14 5 Not Available [facility] [address] [place], [address], 08/29/2023 11:59:54 08/29/19 24 08/29/2023 BASIC METAB OLIC PANEL potassium 4.4 mmol/ L 3.3-4. 9 Speci men was sligh tly hemol yzed, hemol ysis incre ases potas sium resul ts. Not Available [facility] [address] [place], [address], 08/29/2023 11:59:54 08/29/19 24 08/29/2023 BASIC METAB OLIC PANEL chloride 105 mmol/ L 97-110 Not Available [facility] [address] [place], [address], 08/29/2023 11:59:54 08/29/19 24 08/29/2023 BASIC METAB OLIC PANEL carbon dioxide 21 mmol/ L 22-32 low Not Available [facility] [address] [place], [address], 08/29/2023 11:59:54 08/29/19 24 08/29/2023 BASIC METAB OLIC PANEL anion gap 14 mmol/ L 2-15 Not Available [facility] [address] [place], [address], 08/29/2023 11:59:54 08/29/19 24 08/29/2023 BASIC METAB OLIC PANEL blood urea nitrogen 16 mg/dL 8-25 Not Available [facility] [address] [place], [address], 08/29/2023 11:59:54 08/29/19 24 08/29/2023 BASIC METAB OLIC PANEL creatinine 1.00 mg/dL 0.60-1 .10 Not Available [facility] [address] [place], [address], 08/29/2023 11:59:54 08/29/19 24 08/29/2023 BASIC METAB OLIC PANEL glomerular filtration rate 72 >90 Inter preti ve Data Refer ence Inter jaya Lizbeth l >/= 90 mL/mi n/1.7 3m2 Mildl y decre ased* 60 - 89 mL/mi n/1.7 3m2 Mildl y to moder ately decre ased 45 - 59 mL/mi n/1.7 3m2 Moder ately to sever lou decre ased 30 - 44 mL/mi n/1.7 3m2 Sever lou decre ased 15 - 29 mL/mi n/1.7 3m2 Kidne y Failu re < 15 mL/mi n/1.7 3m2 *Rela tive to young adult level Estim ated glome rular filtr ation rate is deter mined by the CKD-E PI equat ion recom bhaskar d by the Natio nal Kidne y Found ation (KDIG O 2011 Clini solange Pract ice Guide line for the Evalu ation and Manag ement of Chron ic Kidne y Disea se. Kidne y Intnl Suppl Aug 2012; 3:1). The CKD-E PI equat ion shoul d not be used for patie nts with unsta ble renal funct ion and has not been valid ated in child cynthia and those over 70. [facility] inter preti ve data was last revie wed 03/17 . Not Available [facility] [address] [place], [address], 08/29/2023 11:59:54 08/29/19 24 08/29/2023 BASIC METAB OLIC PANEL glucose 95 mg/dL 70-199 Inter preti ve Data Fasti ng gluco se >/= 126 mg/dl is diagn ostic for diabe oc. Fasti ng is defin ed as no calor ic intak e for at least 8 hours . Fasti ng gluco se betwe en 100 mg/dl to 125 mg/dl is diagn ostic of predi abete s. In a patie nt with class ic sympt oms of hyper glyce olivier or hyper glyce lily crisi s, a rando m gluco se >/= 200 mg/dl is diagn ostic for diabe oc. In the absen ce of unequ ivoca l hyper glyce olivier, resul ts shoul d be confi rmed by jhonatan hernandes. The class ifica tion and Diagn osis of Diabe oc Diabe oc Care 2017; 40 (Supp l. 1):S1 1. [facility] inter preti ve data was last jae ed 07/11 . Not Available [facility] [address] [place], [address], 08/29/2023 11:59:54 08/29/19 24 08/29/2023 BASIC METAB OLIC PANEL calcium 9.6 mg/dL 8.5-10 .3 Not Available [facility] [address] [place], [address], 08/29/2023 11:59:54 08/29/19 24 08/29/2023 CBC WITH DIFFE RENTI AL white blood count 4.1 K/cum m 3.8-9. 9 Not Available [address], [address], 08/29/2023 10:33:16 08/29/19 24 08/29/2023 CBC WITH DIFFE RENTI AL red blood count 3.65 M/cum m 3.90-5 .20 low Not Available [address], [address], 08/29/2023 10:33:16 08/29/19 24 08/29/2023 CBC WITH DIFFE RENTI AL hemoglobin 11.2 g/dL 11.9-1 5.5 low Not Available [address], [address], 08/29/2023 10:33:16 08/29/19 24 08/29/2023 CBC WITH DIFFE RENTI AL hematocrit 34.6 % 35.6-4 5.5 low Not Available [address], [address], 08/29/2023 10:33:16 08/29/19 24 08/29/2023 CBC WITH DIFFE RENTI AL mean corpuscular volume 94.8 fL 81.3-9 6.4 Not Available [address], [address], 08/29/2023 10:33:16 08/29/19 24 08/29/2023 CBC WITH DIFFE RENTI AL mean corpuscular hemoglobin 30.7 pg 27.1-3 3.3 Not Available [address], [address], 08/29/2023 10:33:16 08/29/19 24 08/29/2023 CBC WITH DIFFE RENTI AL mean corpuscular HGB conc 32.4 g/dL 32.3-3 5.7 Not Available [address], [address], 08/29/2023 10:33:16 08/29/19 24 08/29/2023 CBC WITH DIFFE RENTI AL RDW standard deviation 48.3 fL 35.7-4 8.1 high Not Available [address], [address], 08/29/2023 10:33:16 08/29/19 24 08/29/2023 CBC WITH DIFFE RENTI AL RDW coefficient of variation 13.9 % 11.1-1 4.9 Not Available [address], [address], 08/29/2023 10:33:16 08/29/19 24 08/29/2023 CBC WITH DIFFE RENTI AL platelet count 272 K/cum m 150-40 0 Not Available [address], [address], 08/29/2023 10:33:16 08/29/19 24 08/29/2023 CBC WITH DIFFE RENTI AL mean platelet volume 9.5 fL 9.1-12 .3 Not Available [address], [address], 08/29/2023 10:33:16 08/29/19 24 08/29/2023 CBC WITH DIFFE RENTI AL neutrophils percent auto 45.2 % Inter preti ve Data Perce nt cell count refer ence range s are not repor rafael, since disco rdanc e with absol [place] value s may lead to misin terpr etati on of CBC data. Curre nt Inter preti ve Data was last jae ed on 12/04 . Not Available [address], [address], 08/29/2023 10:33:16 08/29/19 24 08/29/2023 CBC WITH DIFFE RENTI AL immature grans percent auto 0.5 % Inter preti ve Data Perce nt cell count refer ence range s are not repor rafael, since disco rdanc e with absol [place] value s may lead to misin terpr etati on of CBC data. Curre nt Inter preti ve Data was last jae ed on 12/04 . Not Available [facility] [address] [place], [address], 08/29/2023 10:33:16 08/29/19 24 08/29/2023 CBC WITH DIFFE RENTI AL lymphocytes percent auto 38.1 % Inter preti ve Data Perce nt cell count refer ence range s are not repor rafael, since disco rdanc e with absol [place] value s may lead to misin terpr etati on of CBC data. Curre nt Inter preti ve Data was last jae ed on 12/04 . Not Available [address], [address], 08/29/2023 10:33:16 08/29/19 24 08/29/2023 CBC WITH DIFFE RENTI AL monocytes percent auto 13.8 % Inter preti ve Data Perce nt cell count refer ence range s are not repor rafael, since disco rdanc e with absol [place] value s may lead to misin terpr etati on of CBC data. Curre nt Inter preti ve Data was last jae ed on 12/04 . Not Available [facility] [address] [place], [address], 08/29/2023 10:33:16 08/29/19 24 08/29/2023 CBC WITH DIFFE RENTI AL eosinophils percent auto 1.7 % Inter preti ve Data Perce nt cell count refer ence range s are not repor rafael, since disco rdanc e with absol [place] value s may lead to misin terpr etati on of CBC data. Curre nt Inter preti ve Data was last jae ed on 12/04 . Not Available [facility] [address] [place], [address], 08/29/2023 10:33:16 08/29/19 24 08/29/2023 CBC WITH DIFFE RENTI AL basophils percent auto 0.7 % Inter preti ve Data Perce nt cell count refer ence range s are not repor rafael, since disco rdanc e with absol [place] value s may lead to misin terpr etati on of CBC data. Curre nt Inter preti ve Data was last jae ed on 12/04 . Not Available [address], [address], 08/29/2023 10:33:16 08/29/19 24 08/29/2023 CBC WITH DIFFE RENTI AL neutrophils absolute auto 1.8 K/cum m 1.7-6. 5 Not Available [address], [address], 08/29/2023 10:33:16 08/29/19 24 08/29/2023 CBC WITH DIFFE RENTI AL immature grans absolute auto 0.0 K/cum m 0.0-0. 1 Not Available [address], [address], 08/29/2023 10:33:16 08/29/19 24 08/29/2023 CBC WITH DIFFE RENTI AL lymphocytes absolute auto 1.6 K/cum m 0.8-3. 3 Not Available [address], [address], 08/29/2023 10:33:16 08/29/19 24 08/29/2023 CBC WITH DIFFE RENTI AL monocytes absolute auto 0.6 K/cum m 0.2-0. 8 Not Available [address], [address], 08/29/2023 10:33:16 08/29/19 24 08/29/2023 CBC WITH DIFFE RENTI AL eosinophils absolute auto 0.1 K/cum m 0.0-0. 5 Not Available [address], [address], 08/29/2023 10:33:16 08/29/19 24 08/29/2023 CBC WITH DIFFE RENTI AL basophils absolute auto 0.0 K/cum m 0.0-0. 1 Not Available [facility] [address] [facility], [place], [address], 08/29/2023 10:33:16 08/29/19 24 08/29/2023 CBC WITH DIFFE RENTI AL nucleated red blood cells 0.00 K/mm3 0.00-0 .01 Not Available [facility] [address] [facility], [place], [address], 08/29/2023 10:33:16 09/13/19 24 09/13/2023 body compo sitio n elo sis (PROC ) Weight 232.6 Not Available [facility] [address] [address], [place], [address], 09/13/2023 13:39:20 09/13/19 24 09/13/2023 body compo sitio n elo sis (PROC ) Skeletal Muscle Mass (SMM) 69.2 Not Available [facility] [address] [address], [place], [address], 09/13/2023 13:39:20 09/13/19 24 09/13/2023 body compo sitio n elo sis (PROC ) Body Fat Mass (BFM) 106 Not Available Main Office [address] [address], [place], [address], 09/13/2023 13:39:20 09/13/19 24 09/13/2023 body compo sitio n elo sis (PROC ) Body Mass Index (BMI) 42.5 Not Available Main Office [address] [address], [place], [address], 09/13/2023 13:39:20 09/13/19 24 09/13/2023 body compo sitio n elo sis (PROC ) Percent Body Fat (PBF) 45.6 Not Available Main O ffice [address] [address], [place], [address], 09/13/2023 13:39:20 09/13/19 24 09/13/2023 body compo sitio n elo sis (PROC ) Basal Metabolic Rate (BMR) 1610 Not Available Main Office [address] [address], [place], [address], 09/13/2023 13:39:20 09/13/19 24 09/13/2023 alphonso metry testi ng* FVC [L] - % 61 Not Available Main O ffice [address] [address], [place], [address], 09/13/2023 13:39:21 09/13/19 24 09/13/2023 alphonso metry testi ng* FEV1 [L] - % 66 Not Available Main Office [address] [address], [place], [address], 09/13/2023 13:39:21 09/13/19 24 09/13/2023 alphonso metry testi ng* FEV1/FVC Ratio- % 107 Not Available Main O ffice [address] [address], [place], [address], 09/13/2023 13:39:21 09/13/19 24 09/13/2023 mds manager test* Unknown Analyte 44.3 Not Available Main O ffice [address] [address], [place], [address], 09/13/2023 13:39:22 09/13/19 24 09/13/2023 mds manager test* Unknown Analyte 35 Not Available Main O ffice [address] [address], [place], [address], 09/13/2023 13:39:22 09/13/19 24 09/13/2023 mds manager test* Unknown Analyte 43.8 Not Available Main O ffice [address] [address], [place], [address], 09/13/2023 13:39:22 09/13/19 24 09/13/2023 mds manager test* Unknown Analyte 32.6 Not Available Main O ffice [address] [address], [place], [address], 09/13/2023 13:39:22 09/13/19 24 09/13/2023 mds manager test* Unknown Analyte 38.3 Not Available Main O ffice [address] [address], [place], [address], 09/13/2023 13:39:22 09/13/19 24 09/13/2023 mds manager test* Unknown Analyte 31.3 Not Available Main O ffice [address] [address], [place], [address], 09/13/2023 13:39:22 09/13/19 24 09/13/2023 gait test (PROC ) Time taken to walk 4M 4.05 Not Available Main Office [address] [address], [place], [address], 09/13/2023 13:39:22 09/13/19 24 09/13/2023 gait test (PROC ) Gait speed in meters p/s .98 Not Available Main O ffice [address] [address], [place], [address], 09/13/2023 13:39:22 09/13/19 24 09/13/2023 visua l acuit y* Status if not performed Peg howe ed/def erred Not Available Main Office [address] [address], [place], [address], 09/13/2023 13:39:21 09/13/19 24 09/13/2023 visua l acuit y* Opthamologis t Name DR Cassie bobo and DR Haile hernandes Not Available Main Office [address] [address], [place], [address], 09/13/2023 13:39:21 12/10/19 24 12/10/2023 LIPID PANEL triglyceride s 90 mg/dL <149 Inter preti ve Data Ages < or = 9 years Accep table : <75 mg/dL [place] high: 75-99 mg/dL High: >or= 100 mg/dL Ages 10 to 20 years Accep table : <90 mg/dL [place] high: 90-12 9 mg/dL High: >or= 130 mg/dL Ages > or = 20 years [place] able: <150 mg/dL [place] high: 150-1 99 mg/dL High: 200-4 99 mg/dL Very high: >or= 499 mg/dL Liter ature Refer ences : 1. Exper t Panel on Integ rated Guide lines for Cardi ovasc ular Healt h and Risk Reduc tion in Child cynthia and Adole scent s. Pedia trics 2010; 128:S 213 2. NCEP Exper t Panel . Circu latio n 2003; 110:2 27 Curre nt Inter preti ve Data was last jae ed on 04/16 . Not Available [facility] [address] [place], [address], 12/10/2023 10:59:55 12/10/19 24 12/10/2023 LIPID PANEL cholesterol 174 mg/dL 30-199 Inter preti ve Data Ages < or = 19 years Accep table : <170 mg/dL [place] high: 170-1 99 mg/dL High: >or= 200 mg/dL Ages > or = 20 years [place] able: <200 mg/dL [place] high: 200-2 39 mg/dL High: >or= 240 mg/dL Liter ature Refer ences : 1. Exper t Panel on Integ rated Guide lines for Cardi ovasc ular Healt h and Risk Reduc tion in Child cynthia and Adole scent s. Pedia trics 2010; 128:S 213 2. NCEP Exper t Panel . Circu latio n 2003; 110:2 27 Curre nt Inter preti ve Data was last jae ed on 04/16 . Not Available [facility] [address] [facility], [place], [address], 12/10/2023 10:59:55 12/10/19 24 12/10/2023 LIPID PANEL LDL cholesterol calculated 93 mg/dL 0-129 Inter preti ve Data Ages < or = 19 years Accep table : <110 mg/dL [place] high: 110-1 29 mg/dL High: >or= 130 mg/dL Ages > or = 20 years Optim al: <100 mg/dL Near optim al: 100-1 29 mg/dL [place] high: 130-1 59 mg/dL High: >160 mg/dL Liter ature Refer ences : 1. Exper t Panel on Integ rated Guide lines for Cardi ovasc ular Healt h and Risk Reduc tion in Child cynthia and Adole scent s. Pedia trics 2010; 128:S 213 2. NCEP Exper t Panel . Circu latio n 2003; 110:2 27 Curre nt Inter preti ve Data was last jae ed on 04/16 . Not Available [facility] [address] [place], [address], 12/10/2023 10:59:55 12/10/19 24 12/10/2023 LIPID PANEL HDL cholesterol 63 mg/dL >40 Inter preti ve Data Ages < or = 19 years Accep table : >45 mg/dL [place] low: 40-45 mg/dL Low: <40 mg/dL Ages > or = 20 years [place] able: >or= 60 mg/dL Low: <40 mg/dL Liter ature Refer ences : 1. Exper t Panel on Integ rated Guide lines for Cardi ovasc ular Healt h and Risk Reduc tion in Child cynthia and Adole scent s. Pedia trics 2010; 128:S 213 2. NCEP Exper t Panel . Circu latio n 2003; 110:2 27 Curre nt Inter preti ve Data was last jae ed on 04/16 . Not Available [facility] [address] [place], [address], 12/10/2023 10:59:55 12/10/19 24 12/10/2023 LIPID PANEL chol HDL ratio 3 ratio Not Available [facility] [address] [place], [address], 12/10/2023 10:59:55 12/10/19 24 12/10/2023 LIPID PANEL non HDL cholesterol 111 Not Available [facility] [address] [place], [address], 12/10/2023 10:59:55 12/10/19 24 12/10/2023 AST aspartate amino transferase 19 units /L 10-45 Not Available [facility] [address] [place], [address], 12/10/2023 10:59:55 12/10/19 24 12/10/2023 BASIC METAB OLIC PANEL sodium 137 mmol/ L 135-14 5 Not Available [address] [place], [address], 12/10/2023 10:59:54 12/10/19 24 12/10/2023 BASIC METAB OLIC PANEL potassium 4.5 mmol/ L 3.3-4. 9 Not Available [address] [address] [place], [address], 12/10/2023 10:59:54 12/10/19 24 12/10/2023 BASIC METAB OLIC PANEL chloride 102 mmol/ L 97-110 Not Available [address] [address] [place], [address], 12/10/2023 10:59:54 12/10/19 24 12/10/2023 BASIC METAB OLIC PANEL carbon dioxide 26 mmol/ L 22-32 Not Available [address] [address] [place], [address], 12/10/2023 10:59:54 12/10/19 24 12/10/2023 BASIC METAB OLIC PANEL anion gap 9 mmol/ L 2-15 Not Available [address] [address] [place], [address], 12/10/2023 10:59:54 12/10/19 24 12/10/2023 BASIC METAB OLIC PANEL blood urea nitrogen 20 mg/dL 8-25 Not Available [address], [address], 12/10/2023 10:59:54 12/10/19 24 12/10/2023 BASIC METAB OLIC PANEL creatinine 0.89 mg/dL 0.60-1 .10 Not Available [facility] [address] [facility], [place], [address], 12/10/2023 10:59:54 12/10/19 24 12/10/2023 BASIC METAB OLIC PANEL glomerular filtration rate 83 >90 Inter preti ve Data Refer ence Inter jaya Lizbeth l >/= 90 mL/mi n/1.7 3m2 Mildl y decre ased* 60 - 89 mL/mi n/1.7 3m2 Mildl y to moder ately decre ased 45 - 59 mL/mi n/1.7 3m2 Moder ately to sever lou decre ased 30 - 44 mL/mi n/1.7 3m2 Sever lou decre ased 15 - 29 mL/mi n/1.7 3m2 Kidne y Failu re < 15 mL/mi n/1.7 3m2 *Rela tive to young adult level Estim ated glome rular filtr ation rate is deter mined by the CKD-E PI equat ion recom bhaskar d by the Natio nal Kidne y Found ation (KDIG O 2011 Clini solange Pract ice Guide line for the Evalu ation and Manag ement of Chron ic Kidne y Disea se. Kidne y Intnl Suppl Aug 2012; 3:1). The CKD-E PI equat ion shoul d not be used for patie nts with unsta ble renal funct ion and has not been valid ated in child cynthia and those over 70. Curre nt inter preti ve data was last revie 03/17 . Not Available [facility] [address] [facility], [place], [address], 12/10/2023 10:59:54 12/10/19 24 12/10/2023 BASIC METAB OLIC PANEL glucose 93 mg/dL 70-199 Inter preti ve Data Fasti ng gluco se >/= 126 mg/dl is diagn ostic for diabe oc. Fasti ng is defin ed as no calor ic intak e for at least 8 hours . Fasti ng gluco se betwe en 100 mg/dl to 125 mg/dl is diagn ostic of predi abete s. In a patie nt with class ic sympt oms of hyper glyce olivier or hyper glyce lily crisi s, a rando m gluco se >/= 200 mg/dl is diagn ostic for diabe oc. In the absen ce of unequ ivoca l hyper glyce olivier, resul ts shoul d be confi rmed by jhonatan hernandes. The class ifica tion and Diagn osis of Diabe oc Diabe oc Care 2017; 40 (Supp l. 1):S1 1. Curre nt inter preti ve data was last jae ed 07/11 . Not Available [facility] [address] [place], [address], 12/10/2023 10:59:54 12/10/19 24 12/10/2023 BASIC METAB OLIC PANEL calcium 9.4 mg/dL 8.5-10 .3 Not Available [facility] [address] [place], [address], 12/10/2023 10:59:54 12/10/19 24 12/10/2023 CBC WITH DIFFE RENTI AL white blood count 5.3 K/cum m 3.8-9. 9 Not Available [facility] [address] [place], [address], 12/10/2023 10:22:47 12/10/19 24 12/10/2023 CBC WITH DIFFE RENTI AL red blood count 3.86 M/cum m 3.90-5 .20 low Not Available [facility] [address] [place], [address], 12/10/2023 10:22:47 12/10/19 24 12/10/2023 CBC WITH DIFFE RENTI AL hemoglobin 11.6 g/dL 11.9-1 5.5 low Not Available [facility] [address] [place], [address], 12/10/2023 10:22:47 12/10/19 24 12/10/2023 CBC WITH DIFFE RENTI AL hematocrit 36.3 % 35.6-4 5.5 Not Available [address] [place], [address], 12/10/2023 10:22:47 12/10/19 24 12/10/2023 CBC WITH DIFFE RENTI AL mean corpuscular volume 94.0 fL 81.3-9 6.4 Not Available [address], [address], 12/10/2023 10:22:47 12/10/19 24 12/10/2023 CBC WITH DIFFE RENTI AL mean corpuscular hemoglobin 30.1 pg 27.1-3 3.3 Not Available [address], [address], 12/10/2023 10:22:47 12/10/19 24 12/10/2023 CBC WITH DIFFE RENTI AL mean corpuscular HGB conc 32.0 g/dL 32.3-3 5.7 low Not Available [address], [address], 12/10/2023 10:22:47 12/10/19 24 12/10/2023 CBC WITH DIFFE RENTI AL RDW standard deviation 49.9 fL 35.7-4 8.1 high Not Available [address], [address], 12/10/2023 10:22:47 12/10/19 24 12/10/2023 CBC WITH DIFFE RENTI AL RDW coefficient of variation 14.6 % 11.1-1 4.9 Not Available [address], [address], 12/10/2023 10:22:47 12/10/19 24 12/10/2023 CBC WITH DIFFE RENTI AL platelet count 252 K/cum m 150-40 0 Not Available [address], [address], 12/10/2023 10:22:47 12/10/19 24 12/10/2023 CBC WITH DIFFE RENTI AL mean platelet volume 9.5 fL 9.1-12 .3 Not Available [facility] [address] [place], [address], 12/10/2023 10:22:47 12/10/19 24 12/10/2023 CBC WITH DIFFE RENTI AL neutrophils percent auto 48.3 % Inter preti ve Data Perce nt cell count refer ence range s are not repor rafael, since disco rdanc e with absol [place] value s may lead to misin terpr etati on of CBC data. Curre nt Inter preti ve Data was last jae ed on 12/04 . Not Available [facility] [address] [place], [address], 12/10/2023 10:22:47 12/10/19 24 12/10/2023 CBC WITH DIFFE RENTI AL immature grans percent auto 0.2 % Inter preti ve Data Perce nt cell count refer ence range s are not repor rafael, since disco rdanc e with absol [place] value s may lead to misin terpr etati on of CBC data. Curre nt Inter preti ve Data was last jae ed on 12/04 . Not Available [facility] [address] [place], [address], 12/10/2023 10:22:47 12/10/19 24 12/10/2023 CBC WITH DIFFE RENTI AL lymphocytes percent auto 38.9 % Inter preti ve Data Perce nt cell count refer ence range s are not repor rafael, since disco rdanc e with absol [place] value s may lead to misin terpr etati on of CBC data. Curre nt Inter preti ve Data was last jae ed on 12/04 . Not Available [facility] [address] [place], [address], 12/10/2023 10:22:47 12/10/19 24 12/10/2023 CBC WITH DIFFE RENTI AL monocytes percent auto 10.7 % Inter preti ve Data Perce nt cell count refer ence range s are not repor rafael, since disco rdanc e with absol [place] value s may lead to misin terpr etati on of CBC data. Curre nt Inter preti ve Data was last jae ed on 12/04 . Not Available [facility] [address] [place], [address], 12/10/2023 10:22:47 12/10/19 24 12/10/2023 CBC WITH DIFFE RENTI AL eosinophils percent auto 1.1 % Inter preti ve Data Perce nt cell count refer ence range s are not repor rafael, since disco rdanc e with absol [place] value s may lead to misin terpr etati on of CBC data. Curre nt Inter preti ve Data was last jae ed on 12/04 . Not Available [address] [place], [address], 12/10/2023 10:22:47 12/10/19 24 12/10/2023 CBC WITH DIFFE RENTI AL basophils percent auto 0.8 % Inter preti ve Data Perce nt cell count refer ence range s are not repor rafael, since disco rdanc e with absol [place] value s may lead to misin terpr etati on of CBC data. Curre nt Inter preti ve Data was last jae ed on 12/04 . Not Available [facility] [address] [place], [address], 12/10/2023 10:22:47 12/10/19 24 12/10/2023 CBC WITH DIFFE RENTI AL neutrophils absolute auto 2.5 K/cum m 1.7-6. 5 Not Available [address] [place], [address], 12/10/2023 10:22:47 12/10/19 24 12/10/2023 CBC WITH DIFFE RENTI AL immature grans absolute auto 0.0 K/cum m 0.0-0. 1 Not Available [address], [address], 12/10/2023 10:22:47 12/10/19 24 12/10/2023 CBC WITH DIFFE RENTI AL lymphocytes absolute auto 2.0 K/cum m 0.8-3. 3 Not Available [address], [address], 12/10/2023 10:22:47 12/10/19 24 12/10/2023 CBC WITH DIFFE RENTI AL monocytes absolute auto 0.6 K/cum m 0.2-0. 8 Not Available [address], [address], 12/10/2023 10:22:47 12/10/19 24 12/10/2023 CBC WITH DIFFE RENTI AL eosinophils absolute auto 0.1 K/cum m 0.0-0. 5 Not Available [address], [address], 12/10/2023 10:22:47 12/10/19 24 12/10/2023 CBC WITH DIFFE RENTI AL basophils absolute auto 0.0 K/cum m 0.0-0. 1 Not Available [address], [address], 12/10/2023 10:22:47 12/10/19 24 12/10/2023 CBC WITH DIFFE RENTI AL nucleated red blood cells 0.00 K/mm3 0.00-0 .01 Not Available [address], [address], 12/10/2023 10:22:47 03/17/20 24 03/17/2024 CBC WITH DIFFE RENTI AL white blood count 5.3 K/cum m 3.8-9. 9 Not Available [address], [address], 03/17/2024 10:54:33 03/17/20 24 03/17/2024 CBC WITH DIFFE RENTI AL red blood count 3.83 M/cum m 3.90-5 .20 low Not Available [address], [address], 03/17/2024 10:54:33 03/17/20 24 03/17/2024 CBC WITH DIFFE RENTI AL hemoglobin 12.1 g/dL 11.9-1 5.5 Not Available [facility] [address] [place], [address], 03/17/2024 10:54:33 03/17/20 24 03/17/2024 CBC WITH DIFFE RENTI AL hematocrit 36.4 % 35.6-4 5.5 Not Available [address], [address], 03/17/2024 10:54:33 03/17/20 24 03/17/2024 CBC WITH DIFFE RENTI AL mean corpuscular volume 95.0 fL 81.3-9 6.4 Not Available [facility] [address] [place], [address], 03/17/2024 10:54:33 03/17/20 24 03/17/2024 CBC WITH DIFFE RENTI AL mean corpuscular hemoglobin 31.6 pg 27.1-3 3.3 Not Available [address] [place], [address], 03/17/2024 10:54:33 03/17/20 24 03/17/2024 CBC WITH DIFFE RENTI AL mean corpuscular HGB conc 33.2 g/dL 32.3-3 5.7 Not Available [address], [address], 03/17/2024 10:54:33 03/17/20 24 03/17/2024 CBC WITH DIFFE RENTI AL RDW standard deviation 45.4 fL 35.7-4 8.1 Not Available [address], [address], 03/17/2024 10:54:33 03/17/20 24 03/17/2024 CBC WITH DIFFE RENTI AL RDW coefficient of variation 13.2 % 11.1-1 4.9 Not Available [address], [address], 03/17/2024 10:54:33 03/17/20 24 03/17/2024 CBC WITH DIFFE RENTI AL platelet count 253 K/cum m 150-40 0 Not Available [facility] [address] [place], [address], 03/17/2024 10:54:33 03/17/20 24 03/17/2024 CBC WITH DIFFE RENTI AL mean platelet volume 9.6 fL 9.1-12 .3 Not Available [facility] [address] [place], [address], 03/17/2024 10:54:33 03/17/20 24 03/17/2024 CBC WITH DIFFE RENTI AL neutrophils percent auto 51.2 % Inter preti ve Data Perce nt cell count refer ence range s are not repor rafael, since disco rdanc e with absol [place] value s may lead to misin terpr etati on of CBC data. Curre nt Inter preti ve Data was last jae ed on 12/04 . Not Available [facility] [address] [place], [address], 03/17/2024 10:54:33 03/17/20 24 03/17/2024 CBC WITH DIFFE RENTI AL immature grans percent auto 0.4 % Inter preti ve Data Perce nt cell count refer ence range s are not repor rafael, since disco rdanc e with absol [place] value s may lead to misin terpr etati on of CBC data. Curre nt Inter preti ve Data was last jae ed on 12/04 . Not Available [facility] [address] [place], [address], 03/17/2024 10:54:33 03/17/20 24 03/17/2024 CBC WITH DIFFE RENTI AL lymphocytes percent auto 34.6 % Inter preti ve Data Perce nt cell count refer ence range s are not repor rafael, since disco rdanc e with absol [place] value s may lead to misin terpr etati on of CBC data. Curre nt Inter preti ve Data was last jae ed on 12/04 . Not Available [facility] [address] [facility] [place], [address], 03/17/2024 10:54:33 03/17/20 24 03/17/2024 CBC WITH DIFFE RENTI AL monocytes percent auto 12.2 % Inter preti ve Data Perce nt cell count refer ence range s are not repor rafael, since disco rdanc e with absol [place] value s may lead to misin terpr etati on of CBC data. Curre nt Inter preti ve Data was last jea ed on 12/04 . Not Available [facility] [address] [facility] [place], [address], 03/17/2024 10:54:33 03/17/20 24 03/17/2024 CBC WITH DIFFE RENTI AL eosinophils percent auto 0.9 % Inter preti ve Data Perce nt cell count refer ence range s are not repor rafael, since disco rdanc e with absol [place] value s may lead to misin terpr etati on of CBC data. Curre nt Inter preti ve Data was last jae ed on 12/04 . Not Available [facility] [address] [place], [address], 03/17/2024 10:54:33 03/17/20 24 03/17/2024 CBC WITH DIFFE RENTI AL basophils percent auto 0.7 % Inter preti ve Data Perce nt cell count refer ence range s are not repor rafael, since disco rdanc e with absol [place] value s may lead to misin terpr etati on of CBC data. Curre nt Inter preti ve Data was last jae ed on 12/04 . Not Available [facility] [address] [place], [address], 03/17/2024 10:54:33 03/17/20 24 03/17/2024 CBC WITH DIFFE RENTI AL neutrophils absolute auto 2.7 K/cum m 1.7-6. 5 Not Available [facility] [address] [facility] [place], [address], 03/17/2024 10:54:33 03/17/20 24 03/17/2024 CBC WITH DIFFE RENTI AL immature grans absolute auto 0.0 K/cum m 0.0-0. 1 Not Available [facility] [address] [place], [address], 03/17/2024 10:54:33 03/17/20 24 03/17/2024 CBC WITH DIFFE RENTI AL lymphocytes absolute auto 1.9 K/cum m 0.8-3. 3 Not Available [address] [place], [address], 03/17/2024 10:54:33 03/17/20 24 03/17/2024 CBC WITH DIFFE RENTI AL monocytes absolute auto 0.7 K/cum m 0.2-0. 8 Not Available [facility] [address] [place], [address], 03/17/2024 10:54:33 03/17/20 24 03/17/2024 CBC WITH DIFFE RENTI AL eosinophils absolute auto 0.1 K/cum m 0.0-0. 5 Not Available [facility] [address] [place], [address], 03/17/2024 10:54:33 03/17/20 24 03/17/2024 CBC WITH DIFFE RENTI AL basophils absolute auto 0.0 K/cum m 0.0-0. 1 Not Available [address] [place], [address], 03/17/2024 10:54:33 03/17/20 24 03/17/2024 CBC WITH DIFFE RENTI AL nucleated red blood cells 0.00 K/mm3 0.00-0 .01 Not Available [address], [address], 03/17/2024 10:54:33 03/17/20 24 03/17/2024 LIPID PANEL triglyceride s 106 mg/dL <149 Inter preti ve Data Ages < or = 9 years Accep table : <75 mg/dL [place] high: 75-99 mg/dL High: >or= 100 mg/dL Ages 10 to 20 years Accep table : <90 mg/dL [place] high: 90-12 9 mg/dL High: >or= 130 mg/dL Ages > or = 20 years [place] able: <150 mg/dL [place] high: 150-1 99 mg/dL High: 200-4 99 mg/dL Very high: >or= 499 mg/dL Liter ature Refer ences : 1. Exper t Panel on Integ rated Guide lines for Cardi ovasc ular Healt h and Risk Reduc tion in Child cynthia and Adole scent s. Pedia trics 2010; 128:S 213 2. NCEP Exper t Panel . Circu latio n 2003; 110:2 27 Curre nt Inter preti ve Data was last jae ed on 04/16 . Not Available [facility] [address] [place], [address], 03/17/2024 10:38:32 03/17/20 24 03/17/2024 LIPID PANEL cholesterol 179 mg/dL 30-199 Inter preti ve Data Ages < or = 19 years Accep table : <170 mg/dL [place] high: 170-1 99 mg/dL High: >or= 200 mg/dL Ages > or = 20 years [place] able: <200 mg/dL [place] high: 200-2 39 mg/dL High: >or= 240 mg/dL Liter ature Refer ences : 1. Exper t Panel on Integ rated Guide lines for Cardi ovasc ular Healt h and Risk Reduc tion in Child cynthia and Adole scent s. Pedia trics 2010; 128:S 213 2. NCEP Exper t Panel . Circu latio n 2003; 110:2 27 Curre nt Inter preti ve Data was last jae ed on 04/16 . Not Available [facility] [address] [facility], [place], [address], 03/17/2024 10:38:32 03/17/20 24 03/17/2024 LIPID PANEL LDL cholesterol calculated 98 mg/dL 0-129 Inter preti ve Data Ages < or = 19 years Accep table : <110 mg/dL [place] high: 110-1 29 mg/dL High: >or= 130 mg/dL Ages > or = 20 years Optim al: <100 mg/dL Near optim al: 100-1 29 mg/dL [place] high: 130-1 59 mg/dL High: >160 mg/dL Liter ature Refer ences : 1. Exper t Panel on Integ rated Guide lines for Cardi ovasc ular Healt h and Risk Reduc tion in Child cynthia and Adole scent s. Pedia trics 2010; 128:S 213 2. NCEP Exper t Panel . Circu latio n 2003; 110:2 27 Curre nt Inter preti ve Data was last jae ed on 04/16 . Not Available [facility] [address] [place], [address], 03/17/2024 10:38:32 03/17/20 24 03/17/2024 LIPID PANEL HDL cholesterol 60 mg/dL >40 Inter preti ve Data Ages < or = 19 years Accep table : >45 mg/dL [place] low: 40-45 mg/dL Low: <40 mg/dL Ages > or = 20 years [place] able: >or= 60 mg/dL Low: <40 mg/dL Liter ature Refer ences : 1. Exper t Panel on Integ rated Guide lines for Cardi ovasc ular Healt h and Risk Reduc tion in Child cynthia and Adole scent s. Pedia trics 2010; 128:S 213 2. NCEP Exper t Panel . Circu latio n 2003; 110:2 27 Curre nt Inter preti ve Data was last jae ed on 04/16 . Not Available [facility] [address] [place], [address], 03/17/2024 10:38:32 03/17/20 24 03/17/2024 LIPID PANEL chol HDL ratio 3 ratio Not Available [facility] [address] [place], [address], 03/17/2024 10:38:32 03/17/20 24 03/17/2024 LIPID PANEL non HDL cholesterol 119 Not Available [facility] [address] [place], [address], 03/17/2024 10:38:32 03/17/20 24 03/17/2024 NT- PRO B-TYP E NATRI URETI C PEPTI DE nt pro B type natriuretic pept 189 pg/mL 0-450 Inter preti ve Comme nts: A. Dyspn ea in Acute Care Setti ng All Ages: < 300 pg/ml , acute heart failu re unlik lou. < 50 yrs: 300 - 450 pg/ml , furth er inves tigat ion warra nted. > 450 pg/ml , acute heart failu re likel y. 50 - 74 yrs: 300 - 900 pg/ml , furth er inves tigat ion warra nted. > 900 pg/ml , acute heart failu re likel y. > or = 75 yrs: 450 - 1800 pg/ml , furth er inves tigat ion warra nted. > 1800 pg/ml , acute heart failu re likel y. B. Non-a cute Setti ng < 75 yrs < 125 pg/ml , rules out heart failu re. > or = 125 pg/ml , furth er inves tigat ion warra nted. > or = 75 yrs < 450 pg/ml , rules out heart failu re. > or = 450 pg/ml , furth er inves tigat ion warra nted. - Knowl edge of each indiv idual patie nt's NT-pr oBNP range may be more usefu l than using simil ar cut-p oints for every patie nt. Pleas e note that marke d eleva tions in NT-pr oBNP level s may be obser samuel in state other than Left Ventr icula r Conge stive Failu re, inclu ding: acute coron usama syndr omes, right heart strai n/belgica lure (incl uding pulmo nary embol ism and cor pulmo nale) , criti solange illne ss, renal failu re, as well as advan fransico age. - Refer ences : 1. Eva ZACARIAS et.al . Eur Heart J. 2006: 27:33 0-337 . 2. Colby wallace RW, Ruba humphrey AM. J. AM Brando Cardi ol: Cardi ovasc Imag. 2009; 2: 216-2 25. Inter preti ve Data Last Jae ed Date: 2017. Not Available [facility] [address] [place], [address], 03/17/2024 10:38:32 03/17/20 24 03/17/2024 AST aspartate amino transferase 20 units /L 10-45 Not Available [facility] [address] [place], [address], 03/17/2024 10:38:32 03/17/20 24 03/17/2024 BASIC METAB OLIC PANEL sodium 138 mmol/ L 135-14 5 Not Available [facility] [address] [place], [address], 03/17/2024 10:38:31 03/17/20 24 03/17/2024 BASIC METAB OLIC PANEL potassium 4.0 mmol/ L 3.3-4. 9 Not Available [facility] [address] [place], [address], 03/17/2024 10:38:31 03/17/20 24 03/17/2024 BASIC METAB OLIC PANEL chloride 99 mmol/ L 97-110 Not Available [facility] [address] [place], [address], 03/17/2024 10:38:31 03/17/20 24 03/17/2024 BASIC METAB OLIC PANEL carbon dioxide 28 mmol/ L 22-32 Not Available [facility] [address] [place], [address], 03/17/2024 10:38:31 03/17/20 24 03/17/2024 BASIC METAB OLIC PANEL anion gap 11 mmol/ L 2-15 Not Available [facility] [address] [place], [address], 03/17/2024 10:38:31 03/17/20 24 03/17/2024 BASIC METAB OLIC PANEL blood urea nitrogen 16 mg/dL 8-25 Not Available [facility] [address] [place], [address], 03/17/2024 10:38:31 03/17/20 24 03/17/2024 BASIC METAB OLIC PANEL creatinine 0.89 mg/dL 0.60-1 .10 Not Available [facility] [address] [facility], [place], [address], 03/17/2024 10:38:31 03/17/20 24 03/17/2024 BASIC METAB OLIC PANEL glomerular filtration rate 83 >90 Inter preti ve Data Refer ence Inter jaya Lizbeth l >/= 90 mL/mi n/1.7 3m2 Mildl y decre ased* 60 - 89 mL/mi n/1.7 3m2 Mildl y to moder ately decre ased 45 - 59 mL/mi n/1.7 3m2 Moder ately to sever lou decre ased 30 - 44 mL/mi n/1.7 3m2 Sever lou decre ased 15 - 29 mL/mi n/1.7 3m2 Kidne y Failu re < 15 mL/mi n/1.7 3m2 *Rela tive to young adult level Estim ated glome rular filtr ation rate is deter mined by the CKD-E PI equat ion recom bhaskar d by the Natio nal Kidne y Found ation (KDIG O 2011 Clini solange Pract ice Guide line for the Evalu ation and Manag ement of Chron ic Kidne y Disea se. Kidne y Intnl Suppl Aug 2012; 3:1). The CKD-E PI equat ion shoul d not be used for patie nts with unsta ble renal funct ion and has not been valid ated in child cynthia and those over 70. Curre nt inter preti ve data was last revie 03/17 . Not Available [facility] [address] [facility], [place], [address], 03/17/2024 10:38:31 03/17/20 24 03/17/2024 BASIC METAB OLIC PANEL glucose 90 mg/dL 70-199 Inter preti ve Data Fasti ng gluco se >/= 126 mg/dl is diagn ostic for diabe oc. Fasti ng is defin ed as no calor ic intak e for at least 8 hours . Fasti ng gluco se betwe en 100 mg/dl to 125 mg/dl is diagn ostic of predi abete s. In a patie nt with class ic sympt oms of hyper glyce olivier or hyper glyce lily crisi s, a rando m gluco se >/= 200 mg/dl is diagn ostic for diabe oc. In the absen ce of unequ ivoca l hyper glyce olivier, resul ts shodaniele d be confi rmed by jhonatan hernandes. The class ifica tion and Diagn osis of Diabe oc Diabe oc Care 2017; 40 (Supp l. 1):S1 1. Curre nt inter preti ve data was last jae ed 07/11 . Not Available [facility] [address] [place], [address], 03/17/2024 10:38:31 03/17/20 24 03/17/2024 BASIC METAB OLIC PANEL calcium 10.3 mg/dL 8.5-10 .3 Not Available [facility] [address] [place], [address], 03/17/2024 10:38:31 06/16/20 24 2024 CBC WITH DIFFE RENTI AL white blood count 5.3 K/cum m 3.8-9. 9 Not Available [facility] [address] [place], [address], 2024 11:00:59 06/16/20 24 2024 CBC WITH DIFFE RENTI AL red blood count 3.76 M/cum m 3.90-5 .20 low Not Available [facility] [address] [place], [address], 2024 11:00:59 06/16/20 24 2024 CBC WITH DIFFE RENTI AL hemoglobin 11.9 g/dL 11.9-1 5.5 Not Available [facility] [address] [place], [address], 2024 11:00:59 06/16/20 24 2024 CBC WITH DIFFE RENTI AL hematocrit 36.4 % 35.6-4 5.5 Not Available [address], [address], 2024 11:00:59 06/16/20 24 2024 CBC WITH DIFFE RENTI AL mean corpuscular volume 96.8 fL 81.3-9 6.4 high Not Available [address], [address], 2024 11:00:59 06/16/2006/16/2024 CBC WITH DIFFE RENTI AL mean corpuscular hemoglobin 31.6 pg 27.1-3 3.3 Not Available [address], [address], 2024 11:00:59 06/16/20 24 2024 CBC WITH DIFFE RENTI AL mean corpuscular HGB conc 32.7 g/dL 32.3-3 5.7 Not Available [address], [address], 2024 11:00:59 06/16/20 24 2024 CBC WITH DIFFE RENTI AL RDW standard deviation 46.0 fL 35.7-4 8.1 Not Available [address], [address], 2024 11:00:59 06/16/20 24 2024 CBC WITH DIFFE RENTI AL RDW coefficient of variation 12.9 % 11.1-1 4.9 Not Available [address], [address], 2024 11:00:59 06/16/20 24 2024 CBC WITH DIFFE RENTI AL platelet count 265 K/cum m 150-40 0 Not Available [address], [address], 2024 11:00:59 06/16/20 24 2024 CBC WITH DIFFE RENTI AL mean platelet volume 9.5 fL 9.1-12 .3 Not Available [facility] [address] [place], [address], 2024 11:00:59 06/16/20 24 2024 CBC WITH DIFFE RENTI AL neutrophils percent auto 49.5 % Inter preti ve Data Perce nt cell count refer ence range s are not repor rafael, since disco rdanc e with absol [place] value s may lead to misin terpr etati on of CBC data. Curre nt Inter preti ve Data was last jae ed on 12/04 . Not Available [facility] [address] [place], [address], 2024 11:00:59 06/16/20 24 2024 CBC WITH DIFFE RENTI AL immature grans percent auto 0.4 % Inter preti ve Data Perce nt cell count refer ence range s are not repor rafael, since disco rdanc e with absol [place] value s may lead to misin terpr etati on of CBC data. Curre nt Inter preti ve Data was last jae ed on 12/04 . Not Available [facility] [address] [place], [address], 2024 11:00:59 06/16/20 24 2024 CBC WITH DIFFE RENTI AL lymphocytes percent auto 34.2 % Inter preti ve Data Perce nt cell count refer ence range s are not repor rafael, since disco rdanc e with absol [place] value s may lead to misin terpr etati on of CBC data. Curre nt Inter preti ve Data was last jae ed on 12/04 . Not Available [facility] [address] [place], [address], 2024 11:00:59 06/16/20 24 2024 CBC WITH DIFFE RENTI AL monocytes percent auto 12.6 % Inter preti ve Data Perce nt cell count refer ence range s are not repor rafael, since disco rdanc e with absol [place] value s may lead to misin terpr etati on of CBC data. Curre nt Inter preti ve Data was last jae ed on 12/04 . Not Available [facility] [address] [place], [address], 2024 11:00:59 06/16/20 24 2024 CBC WITH DIFFE RENTI AL eosinophils percent auto 2.5 % Inter preti ve Data Perce nt cell count refer ence range s are not repor rafael, since disco rdanc e with absol [place] value s may lead to misin terpr etati on of CBC data. Curre nt Inter preti ve Data was last jae ed on 12/04 . Not Available [facility] [address] [place], [address], 2024 11:00:59 06/16/20 24 2024 CBC WITH DIFFE RENTI AL basophils percent auto 0.8 % Inter preti ve Data Perce nt cell count refer ence range s are not repor rafael, since disco rdanc e with absol [place] value s may lead to misin terpr etati on of CBC data. Curre nt Inter preti ve Data was last jae ed on 12/04 . Not Available [facility] [address] [place], [address], 2024 11:00:59 06/16/20 24 2024 CBC WITH DIFFE RENTI AL neutrophils absolute auto 2.6 K/cum m 1.7-6. 5 Not Available [facility] [address] [place], [address], 2024 11:00:59 06/16/20 24 2024 CBC WITH DIFFE RENTI AL immature grans absolute auto 0.0 K/cum m 0.0-0. 1 Not Available [facility] [address] [place], [address], 2024 11:00:59 06/16/20 24 2024 CBC WITH DIFFE RENTI AL lymphocytes absolute auto 1.8 K/cum m 0.8-3. 3 Not Available [facility] [address] [place], [address], 2024 11:00:59 06/16/20 24 2024 CBC WITH DIFFE RENTI AL monocytes absolute auto 0.7 K/cum m 0.2-0. 8 Not Available [facility] [address] [place], [address], 2024 11:00:59 06/16/20 24 2024 CBC WITH DIFFE RENTI AL eosinophils absolute auto 0.1 K/cum m 0.0-0. 5 Not Available [facility] [address] [place], [address], 2024 11:00:59 06/16/20 24 2024 CBC WITH DIFFE RENTI AL basophils absolute auto 0.0 K/cum m 0.0-0. 1 Not Available [facility] [address] [place], [address], 2024 11:00:59 06/16/20 24 2024 CBC WITH DIFFE RENTI AL nucleated red blood cells 0.00 K/mm3 0.00-0 .01 Not Available [facility] [address] [place], [address], 2024 11:00:59 06/16/20 24 2024 NT- PRO B-TYP E NATRI URETI C PEPTI DE nt pro B type natriuretic pept 214 pg/mL 0-450 Inter preti ve Comme nts: A. Dyspn ea in Acute Care Setti ng All Ages: < 300 pg/ml , acute heart failu re unlik lou. < 50 yrs: 300 - 450 pg/ml , formerly [facility] er inves tigat ion warra nted. > 450 pg/ml , acute heart failu re likel y. 50 - 74 yrs: 300 - 900 pg/ml , formerly [facility] er inves tigat ion warra nted. > 900 pg/ml , acute heart failu re likel y. > or = 75 yrs: 450 - 1800 pg/ml , furth er inves tigat ion warra nted. > 1800 pg/ml , acute heart failu re likel y. B. Non-a cute Setti ng < 75 yrs < 125 pg/ml , rules out heart failu re. > or = 125 pg/ml , furth er inves tigat ion warra nted. > or = 75 yrs < 450 pg/ml , rules out heart failu re. > or = 450 pg/ml , furth er inves tigat ion warra nted. - Knowl edge of each indiv idual patie nt's NT-pr oBNP range may be more usefu l than using simil ar cut-p oints for every patie nt. Pleas e note that marke d eleva tions in NT-pr oBNP level s may be obser samuel in state other than Left Ventr icula r Conge stive Failu re, inclu ding: acute coron usama syndr omes, right heart strai n/belgica lure (incl uding pulmo nary embol ism and cor pulmo nale) , criti solange illne ss, renal failu re, as well as advan fransico age. - Refer ences : 1. Eva palmer JL et.al . Eur Heart J. 2006: 27:33 0-337 . 2. Colby wallace RW, Ruba humphrey AM. J. AM Brando Cardi ol: Cardi ovasc Imag. 2009; 2: 216-2 25. Inter preti ve Data Last Jae ed Date: 2017. Not Available [facility] [address] [place], [address], 2024 10:53:52 06/16/2006/16/2024 AST aspartate amino transferase 24 units /L 10-45 Not Available [facility] [address] [place], [address], 2024 10:53:52 06/16/2006/16/2024 BASIC METAB OLIC PANEL sodium 139 mmol/ L 135-14 5 Not Available [facility] [address] [place], [address], 2024 10:53:51 06/16/2006/16/2024 BASIC METAB OLIC PANEL potassium 4.2 mmol/ L 3.3-4. 9 Not Available [facility] [address] [place], [address], 2024 10:53:51 06/16/2006/16/2024 BASIC METAB OLIC PANEL chloride 103 mmol/ L 97-110 Not Available [facility] [address] [place], [address], 2024 10:53:51 06/16/2006/16/2024 BASIC METAB OLIC PANEL carbon dioxide 24 mmol/ L 22-32 Not Available [facility] [address] [place], [address], 2024 10:53:51 06/16/2006/16/2024 BASIC METAB OLIC PANEL anion gap 12 mmol/ L 2-15 Not Available [facility] [address] [place], [address], 2024 10:53:51 06/16/2006/16/2024 BASIC METAB OLIC PANEL blood urea nitrogen 19 mg/dL 8-25 Not Available [facility] [address] [place], [address], 2024 10:53:51 06/16/2006/16/2024 BASIC METAB OLIC PANEL creatinine 1.03 mg/dL 0.60-1 .10 Not Available [facility] [address] [place], [address], 2024 10:53:51 06/16/20 24 2024 BASIC METAB OLIC PANEL glomerular filtration rate 69 >90 Inter preti ve Data Refer ence Inter jaya Lizbeth l >/= 90 mL/mi n/1.7 3m2 Mildl y decre ased* 60 - 89 mL/mi n/1.7 3m2 Mildl y to moder ately decre ased 45 - 59 mL/mi n/1.7 3m2 Moder ately to sever lou decre ased 30 - 44 mL/mi n/1.7 3m2 Sever lou decre ased 15 - 29 mL/mi n/1.7 3m2 Kidne y Failu re < 15 mL/mi n/1.7 3m2 *Rela tive to young adult level Estim ated glome rular filtr ation rate is deter mined by the CKD-E PI equat ion recom bhaskar d by the Natio nal Kidne y Found ation (KDIG O 2011 Clini solange Pract ice Guide line for the Evalu ation and Manag ement of Chron ic Kidne y Disea se. Kidne y Intnl Suppl Aug 2012; 3:1). The CKD-E PI equat ion shoul d not be used for patie nts with unsta ble renal funct ion and has not been valid ated in child cynthia and those over 70. [facility] Districte nt inter preti ve data was last revie wed 03/17 . Not Available [facility] [address] [facility], [place], [address], 2024 10:53:51 06/16/20 24 2024 BASIC METAB OLIC PANEL glucose 97 mg/dL 70-199 Inter preti ve Data Fasti ng gluco se >/= 126 mg/dl is diagn ostic for diabe oc. Fasti ng is defin ed as no calor ic intak e for at least 8 hours . Fasti ng gluco se betwe en 100 mg/dl to 125 mg/dl is diagn ostic of predi abete s. In a patie nt with class ic sympt oms of hyper glyce olivier or hyper glyce lily crisi s, a rando m gluco se >/= 200 mg/dl is diagn ostic for diabe oc. In the absen ce of unequ ivoca l hyper glyce olivier, resul ts shoul d be confi rmed by repewilton cai testi ng. The class ifica tion and Diagn osis of Diabe oc Diabe oc Care 2017; 40 (Supp l. 1):S1 1. [facility] nt inter preti ve data was last jae ed 07/11 . Not Available [facility] [address] [place], [address], 2024 10:53:51 06/16/20 24 2024 BASIC METAB OLIC PANEL calcium 10.1 mg/dL 8.5-10 .3 Not Available [facility] [address] [place], [address], 2024 10:53:51 07/18/20 24 07/18/2024 INFLU MASON A, B, RSV, AND COVID -19 PCR influenza A PCR NEGATI VE negati ve Not Available [facility] [address] [place], [address], 07/18/2024 10:55:54 07/18/20 24 07/18/2024 INFLU MASON A, B, RSV, AND COVID -19 PCR influenza B PCR NEGATI VE negati ve Not Available [facility] [address] [place], [address], 07/18/2024 10:55:54 07/18/20 24 07/18/2024 INFLU MASON A, B, RSV, AND COVID -19 PCR RSV PCR NEGATI VE negati ve Not Available [facility] [address] [place], [address], 07/18/2024 10:55:54 07/18/20 24 07/18/2024 INFLU MASON A, B, RSV, AND COVID -19 PCR covid-19 PCR NEGATI VE negati ve Inter preti ve data: Test perfo rmed on the [employer] pert. This assay is a multi plex, real- time rever se trans cript ase PCR test used for the quali tativ e detec tion of Influ mason A, Influ mason B, Respi rator y Syncy tial Virus , and COVID -19. This assay has been clear ed by the [place] Food and Drug Admin istra tion and perfo rmanc e kim cteri stics have been verif ied by [facility] . Resul ts must be consi dered in the clini solange greer xt and a negat steve resul t does not rule out infec tion. Inter preti ve data last jae ed 2022. Not Available [facility] [address] [place], [address], 07/18/2024 10:55:54 08/12/20 24 08/12/2024 CARCI NOEMB RYONI C ANTIG EN carcinoembry onic antigen 1.7 NG/mL 0.2-3. 8 This assay is perfo rmed by the [facility] y metho d elect [facility] mil inesc ence. Resul ts obtai jon [facility] or metho d may not be bobby rable . Not Available [facility] [address] [place], [address], 08/12/2024 17:13:13 08/12/20 24 08/12/2024 MAGNE SIUM LEVEL magnesium 2.3 mg/dL 1.4-2. 5 Not Available [address], [address], 08/12/2024 11:57:37 08/12/20 24 08/12/2024 PHOSP HORUS LEVEL phosphorus 3.6 mg/dL 2.3-4. 5 Not Available [facility] [address] [place], [address], 08/12/2024 11:57:36 08/12/20 24 08/12/2024 BASIC METAB OLIC PANEL sodium 140 mmol/ L 135-14 5 Not Available [address], [address], 08/12/2024 11:57:36 08/12/20 24 08/12/2024 BASIC METAB OLIC PANEL potassium 3.9 mmol/ L 3.3-4. 9 Not Available [address], [address], 08/12/2024 11:57:36 08/12/20 24 08/12/2024 BASIC METAB OLIC PANEL chloride 102 mmol/ L 97-110 Not Available [address], [address], 08/12/2024 11:57:36 08/12/20 24 08/12/2024 BASIC METAB OLIC PANEL carbon dioxide 30 mmol/ L 22-32 Not Available [facility] [address] [place], [address], 08/12/2024 11:57:36 08/12/20 24 08/12/2024 BASIC METAB OLIC PANEL anion gap 8 mmol/ L 2-15 Not Available [facility] [address] [place], [address], 08/12/2024 11:57:36 08/12/20 24 08/12/2024 BASIC METAB OLIC PANEL blood urea nitrogen 19 mg/dL 8-25 Not Available [facility] [address] [place], [address], 08/12/2024 11:57:36 08/12/20 24 08/12/2024 BASIC METAB OLIC PANEL creatinine 1.05 mg/dL 0.60-1 .10 Not Available [facility] [address] [place], [address], 08/12/2024 11:57:36 08/12/20 24 08/12/2024 BASIC METAB OLIC PANEL glomerular filtration rate 67 >90 Inter preti ve Data Refer ence Inter jaya Lizbeth l >/= 90 mL/mi n/1.7 3m2 Mildl y decre ased* 60 - 89 mL/mi n/1.7 3m2 Mildl y to moder ately decre ased 45 - 59 mL/mi n/1.7 3m2 Moder ately to sever lou decre ased 30 - 44 mL/mi n/1.7 3m2 Sever lou decre ased 15 - 29 mL/mi n/1.7 3m2 Kidne y Failu re < 15 mL/mi n/1.7 3m2 *Rela tive to young adult level Estim ated glome rular filtr ation rate is deter mined by the CKD-E PI equat ion recom bhaskar d by the Natio nal Kidne y Found ation (KDIG O 2012 Clini solange Pract ice Guide line for the Evalu ation and Manag ement of Chron ic [place] y Disea se. Kidne y Intnl Suppl Aug 2012; 3:1). The CKD-E PI equat ion shoul d not be used for patie nts with unsta ble renal funct ion and has not been valid ated in child cynthia and those over 70. [place] nt inter preti ve data was last revie wed 03/17 . Not Available [facility] [address] [place], [address], 08/12/2024 11:57:36 08/12/20 24 08/12/2024 BASIC METAB OLIC PANEL glucose 94 mg/dL 70-199 Inter preti ve Data Fasti ng gluco se >/= 126 mg/dl is diagn ostic for diabe oc. Fasti ng is defin ed as no calor ic intak e for at least 8 hours . Fasti ng gluco se betwe en 100 mg/dl to 125 mg/dl is diagn ostic of predi abete s. In a patie nt with class ic sympt oms of hyper glyce olviier or hyper glyce lily crisi s, a rando m gluco se >/= 200 mg/dl is diagn ostic for diabe oc. In the absen ce of unequ ivoca l hyper glyce olivier, resul ts shoul d be confi rmed by jhonatan hernandes. The class ifica tion and Diagn osis of Diabe oc Diabe oc Care 2017; 40 (Supp l. 1):S1 1. [facility] nt inter preti ve data was last jae ed 07/11 . Not Available [facility] [address] [facility], [place], [address], 08/12/2024 11:57:36 08/12/20 24 08/12/2024 BASIC METAB OLIC PANEL calcium 9.7 mg/dL 8.5-10 .3 Not Available [facility] [address] [place], [address], 08/12/2024 11:57:36 08/12/20 24 08/12/2024 ERYTH ROCYT E SEDIM ENTAT ION RATE erythrocyte sedimentatio n rate 53 mm/HR 1-30 high Not Available [facility] [address] [place], [address], 08/12/2024 11:17:15 08/12/20 24 08/12/2024 CBC WITH DIFFE RENTI AL white blood count 4.7 K/cum m 3.8-9. 9 Not Available [facility] [address] [place], [address], 08/12/2024 11:11:25 08/12/20 24 08/12/2024 CBC WITH DIFFE RENTI AL red blood count 3.45 M/cum m 3.90-5 .20 low Not Available [facility] [address] [place], [address], 08/12/2024 11:11:25 08/12/20 24 08/12/2024 CBC WITH DIFFE RENTI AL hemoglobin 10.6 g/dL 11.9-1 5.5 low Not Available [address], [address], 08/12/2024 11:11:25 08/12/20 24 08/12/2024 CBC WITH DIFFE RENTI AL hematocrit 33.7 % 35.6-4 5.5 low Not Available [facility] [address] [place], [address], 08/12/2024 11:11:25 08/12/20 24 08/12/2024 CBC WITH DIFFE RENTI AL mean corpuscular volume 97.7 fL 81.3-9 6.4 high Not Available [address], [address], 08/12/2024 11:11:25 08/12/20 24 08/12/2024 CBC WITH DIFFE RENTI AL mean corpuscular hemoglobin 30.7 pg 27.1-3 3.3 Not Available [address], [address], 08/12/2024 11:11:25 08/12/20 24 08/12/2024 CBC WITH DIFFE RENTI AL mean corpuscular HGB conc 31.5 g/dL 32.3-3 5.7 low Not Available [address], [address], 08/12/2024 11:11:25 08/12/20 24 08/12/2024 CBC WITH DIFFE RENTI AL RDW standard deviation 47.7 fL 35.7-4 8.1 Not Available [address], [address], 08/12/2024 11:11:25 08/12/20 24 08/12/2024 CBC WITH DIFFE RENTI AL RDW coefficient of variation 13.3 % 11.1-1 4.9 Not Available [address], [address], 08/12/2024 11:11:25 08/12/20 24 08/12/2024 CBC WITH DIFFE RENTI AL platelet count 304 K/cum m 150-40 0 Not Available [address], [address], 08/12/2024 11:11:25 08/12/20 24 08/12/2024 CBC WITH DIFFE RENTI AL mean platelet volume 9.3 fL 9.1-12 .3 Not Available [address], [address], 08/12/2024 11:11:25 08/12/20 24 08/12/2024 CBC WITH DIFFE RENTI AL neutrophils percent auto 43.5 % Inter preti ve Data Perce nt cell count refer ence range s are not repor rafael, since disco rdanc e with absol [place] value s may lead to misin terpr etati on of CBC data. Curre nt Inter preti ve Data was last jae ed on 12/04 . Not Available [address], [address], 08/12/2024 11:11:25 08/12/20 24 08/12/2024 CBC WITH DIFFE RENTI AL immature grans percent auto 0.4 % Inter preti ve Data Perce nt cell count refer ence range s are not repor rafael, since disco rdanc e with absol [place] value s may lead to misin terpr etati on of CBC data. Curre nt Inter preti ve Data was last jae ed on 12/04 . Not Available [facility] [address] [place], [address], 08/12/2024 11:11:25 08/12/20 24 08/12/2024 CBC WITH DIFFE RENTI AL lymphocytes percent auto 41.8 % Inter preti ve Data Perce nt cell count refer ence range s are not repor rafael, since disco rdanc e with absol [place] value s may lead to misin terpr etati on of CBC data. Curre nt Inter preti ve Data was last jae ed on 12/04 . Not Available [facility] [address] [place], [address], 08/12/2024 11:11:25 08/12/20 24 08/12/2024 CBC WITH DIFFE RENTI AL monocytes percent auto 11.7 % Inter preti ve Data Perce nt cell count refer ence range s are not repor rafael, since disco rdanc e with absol [place] value s may lead to misin terpr etati on of CBC data. Curre nt Inter preti ve Data was last jae ed on 12/04 . Not Available [facility] [address] [place], [address], 08/12/2024 11:11:25 08/12/20 24 08/12/2024 CBC WITH DIFFE RENTI AL eosinophils percent auto 1.7 % Inter preti ve Data Perce nt cell count refer ence range s are not repor rafael, since disco rdanc e with absol [place] value s may lead to misin terpr etati on of CBC data. Curre nt Inter preti ve Data was last jae ed on 12/04 . Not Available [facility] [address] [place], [address], 08/12/2024 11:11:25 08/12/20 24 08/12/2024 CBC WITH DIFFE RENTI AL basophils percent auto 0.9 % Inter preti ve Data Perce nt cell count refer ence range s are not repor rafael, since disco rdanc e with absol [place] value s may lead to misin terpr etati on of CBC data. Curre nt Inter preti ve Data was last jae ed on 12/04 . Not Available [address], [address], 08/12/2024 11:11:25 08/12/20 24 08/12/2024 CBC WITH DIFFE RENTI AL neutrophils absolute auto 2.0 K/cum m 1.7-6. 5 Not Available [address], [address], 08/12/2024 11:11:25 08/12/20 24 08/12/2024 CBC WITH DIFFE RENTI AL immature grans absolute auto 0.0 K/cum m 0.0-0. 1 Not Available [address], [address], 08/12/2024 11:11:25 08/12/20 24 08/12/2024 CBC WITH DIFFE RENTI AL lymphocytes absolute auto 2.0 K/cum m 0.8-3. 3 Not Available [address], [address], 08/12/2024 11:11:25 08/12/20 24 08/12/2024 CBC WITH DIFFE RENTI AL monocytes absolute auto 0.6 K/cum m 0.2-0. 8 Not Available [address], [address], 08/12/2024 11:11:25 08/12/20 24 08/12/2024 CBC WITH DIFFE RENTI AL eosinophils absolute auto 0.1 K/cum m 0.0-0. 5 Not Available [address], [address], 08/12/2024 11:11:25 08/12/20 24 08/12/2024 CBC WITH DIFFE RENTI AL basophils absolute auto 0.0 K/cum m 0.0-0. 1 Not Available [facility] [address] [place], [address], 08/12/2024 11:11:25 08/12/20 24 08/12/2024 CBC WITH DIFFE RENTI AL nucleated red blood cells 0.00 K/mm3 0.00-0 .01 Not Available [facility] [address] [place], [address], 08/12/2024 11:11:25 08/25/20 24 08/25/2024 CA 19-9 cancer antigen 19 9 6.0 units /mL 0.6-42 .0 This assay is perfo rmed by the [facility] y metho d elect [facility] milum inesc ence. Resul ts obtai jon by [facility] er manuf actur er or metho d may not be bobby rablindsey . Not Available [facility] [address] [place], [address], 08/25/2024 11:30:44 08/25/20 24 08/25/2024 CALCI UM, TOTAL calcium 9.9 mg/dL 8.5-10 .3 Not Available [facility] [address] [place], [address], 08/25/2024 08:52:07 09/16/19 25 09/16/2024 HSCRP hs-CRP 4.7 mg/L <1.0 high Refer ence Range : Optim al <1.0 mg/L, accor ding to Nely DUNBAR et al. Endoc r Pract .2017 ;23(S uppl 2):1- 87. The AHA/C DC Guide lines recom mend hs-CR P range s for ident ifyin g Relat steve Cardi ovasc ular Risk in patie nts ages >17 years : <1.0 mg/L Lower Relat steve Cardi ovasc ular Risk; 1.0-3 .0 mg/L [place] ge Relat steve Cardi ovasc ular Risk; 3.1-1 0.0 mg/L Hig[place] r Relat steve Cardi ovasc ular Risk. If resul t is betwe en 3.1 and 10.0 mg/L, consi karli retes ting in 1-2 weeks to exclu de a benig n trans ient eleva tion secon dilip to infec tion or infla mmati on from the basel ine CRP value . Persi stent eleva tions of >10.0 mg/L upon retes ting may be assoc iated with infec tion and infla mmati on. The AHA/C DC recom menda tions are based on Pears on TA, Mensa h GA, Opal tashr RW, et al. Marke rs of infla mmati on and cardi ovasc ular disea se: appli catio n to clini solange and publi c healt h pract ice: A state ment for healt hcare tatiana tapia from the [facility] rs for Disea se Contr ol and Preve ntion and the Ameri can Heart Assoc iatio n. Circu latio n 2002; 107(3 ): 499-5 11. Not Available [facility] - Manual Order Only [address], [place], [address], 09/24/2024 07:18:39 09/16/19 25 09/16/2024 HEMOG LOBIN A1C HbA1C 5.1 % <5.7 For the purpo se of scree jose guadalupe for the prese nce of diabe oc: <5.7% is consi stent with the absen ce of diabe oc; 5.7-6 .4% is consi stent with incre ased risk for diabe oc (pred iabet es); >= 6.5% is consi stent with diabe oc. This assay resul t is consi stent with a decre ased risk of diabe oc. Curre ntly, no conse nsus exist roland gonsales use of hemog lobin A1c for diagn osis of diabe oc in child cynthia. Accor dru to Ameri can Diabe oc Assoc iatio n (ADA) guide lines , hemog lobin A1c <7.0% repre sents optim al contr ol in non-p regna nt diabe tic patie nts. Diffe rent metri cs may apply to speci fic patie nt popul ation s. Stand ards of Medic al Care in Diabe oc (ADA) . This test was perfo rmed on the [facility] c503 platf orm. Effec tive 024, a bush e in test platf orms from the [facility] t[facility] to the [facility] c503 may have shift ed HbA1c resul ts bobby red to histo rical resul ts. Based on labor atory valid ation testi ng condu cted at [facility] , the Brown platf orm relat steve to the [facility] platf orm had an avera ge incre ase in HbA1c value of <=0.3 %. This diffe rence is withi n accep rafael varia bilit y estab lishe d by the Natio nal Glyco hemog lobin Stand ardiz ation Progr am. Note that not all indiv idual s will have had a shift in their resul ts and direc t bobby rison s betwe en histo rical and curre nt resul ts for testi ng condu cted on diffe rent platf orms is not recom bhaskar d. Not Available [facility] - Manual Order Only [address], [place], [address], 09/24/2024 07:18:40 09/16/19 25 09/16/2024 HEMOG LOBIN A1C estimated average glucose 100 mg/dL <117 Not Available [facility] - Manual Order Only [address], [place], [address], 09/24/2024 07:18:40 09/16/19 25 09/16/2024 LIPID PANEL W/ TG/HD L-C (ORDE RED WITH LIPOP ROTEI N, NMR) cholesterol, total 213 mg/dL <200 high Not Available [facility] - Manual Order Only [address], [place], [address], 09/24/2024 07:18:40 09/16/19 25 09/16/2024 LIPID PANEL W/ TG/HD L-C (ORDE RED WITH LIPOP ROTEI N, NMR) HDL cholesterol 60 mg/dL >49 Not Available [facility] - Manual Order Only [address], [place], [address], 09/24/2024 07:18:40 09/16/19 25 09/16/2024 LIPID PANEL W/ TG/HD L-C (ORDE RED WITH LIPOP ROTEI N, NMR) triglyceride s 179 mg/dL <150 high Not Available [facility] - Manual Order Only [address], [place], [address], 09/24/2024 07:18:40 09/16/19 25 09/16/2024 LIPID PANEL W/ TG/HD L-C (ORDE RED WITH LIPOP ROTEI N, NMR) LDL cholesterol 124 mg/dL _(solange c) <100 high [place] able range <100 mg/dL for prima ry preve ntion ; <70 mg/dL for patie nts with CHD or diabe tic patie nts with >= 2 CHD risk facto rs. LDL-C is now calcu lated using the Shweta parr-Hop kins shawnu junie n, which is a valid ated novel alma fam r accur acy than the Fried lev equat ion in the estim ation of LDL-C . Shweta parr SS et al. NATALIE. 2013; 310(1 9): 2061- 2068 (http ://ed ucati on.Ashtyn nguyen Jewel Toned. com/f aq/FA Q164) Not Available [facility] - Manual Order Only [address], [place], [address], 09/24/2024 07:18:40 09/16/19 25 09/16/2024 LIPID PANEL W/ TG/HD L-C (ORDE RED WITH LIPOP ROTEI N, NMR) chol/HDL-C 3.6 calc <5.0 Not Available [facility] - Manual Order Only [address], [place], [address], 09/24/2024 07:18:40 09/16/19 25 09/16/2024 LIPID PANEL W/ TG/HD L-C (ORDE RED WITH LIPOP ROTEI N, NMR) non-HDL cholesterol 154 mg/dL _(solange c) <130 high For patie nts with diabe oc plus 1 major ASCVD risk facto r, treat ing to a non-H DL-C goal of <100 mg/dL (LDL- C of <70 mg/dL ) is consi dered a thera peuti c optio n. Not Available [facility] - Manual Order Only [address], [place], [address], 09/24/2024 07:18:40 09/16/19 25 09/16/2024 LIPID PANEL W/ TG/HD L-C (ORDE RED WITH LIPOP ROTEI N, NMR) TG/HDL-C 3.0 calc <2.0 high Not Available [facility] - Manual Order Only [address], [place], [address], 09/24/2024 07:18:40 09/16/19 25 09/16/2024 MYELO PEROX IDASE myeloperoxid ase 518 pmol/ L <470 high Based on a high risk sub-p opula tion (N=92 0) defin ed as ambul atory stabl e patie nts witho ut acute coron usama syndr ome who under went elect steve diagn ostic coron usama angio graph y (1) and a refer ence range study of appar ently healt hy donor s, we have defin ed the follo wing cut-o ffs for MPO: A cut-o ff of <470 pmol/ L defin es an 'appa rentl y healt hy' popul ation at optim al relat steve risk for a cardi ovasc ular event , 470-5 39 pmol/ L defin es a popul ation at moder ate relat steve risk for a cardi ovasc ular event (2-fo ld incre ased risk of MACE at 1 years ), and > = 540 pmol/ L defin es a popul ation with a high relat steve risk for a cardi ovasc ular event . (Refe rence : 1. Bobby et al. Am J Cardi ol. 2013; 111:4 65-47 0 and perso nal commu nicat ion with Bobby lopez al). This test was devel oped and its elo tical perfo rmanc e kim cteri stics have been deter mined by [facility] ometa bolblanca Pablo r of Michael velasquez at [facility]. It has not been clear ed or appro samuel by the U.S. Food and Drug Admin istra tion. This assay has been valid ated pursu ant to the CLIA regul ation s and is used for clini solange purpo ses. Not Available [facility] - Manual Order Only [address], [place], [address], 09/24/2024 07:18:41 09/16/19 25 09/16/2024 VITAM IN D 25 HYDRO XY LC-MS /MS vitamin D 25 hydroxy by lc-MS/MS 39.6 NG/mL >29.9 Vitam in D, 25-Hy droxy repor ts valencia ntrat ions of two commo n forms , 25-OH D2 and 25-OH D3. 25-OH D3 indic ates both endog enous produ ction and suppl ement ation . 25-OH D2 is an indic ator of exoge nous sourc es, such as diet or suppl ement ation . Thera py is based on measu remen t of Total 25-OH D, with level s <20 ng/mL indic ative of Vitam in D defic iency , while level s betwe en 20 ng/mL and 30 ng/mL sugge st insuf ficie ncy. Optim al level s are >=30 ng/mL . For addit ional infor bridget knight e refer to http: //[facility] bindu parr.que stdia gnost ics.c om/fa q/FAQ 199(T his link is being provi ded for infor dennis parr/silvia catnanette nal purpo ses only. )This test was devel oped and its elo tical perfo rmanc e kim cteri stics have been deter mined by [facility] [employer] at [facility]. It has not been clear ed or appro samuel by the U.S. Food and Drug Admin istra tion. This assay has been valid ated pursu ant to the CLIA regul ation s and is used for clini solange purpo ses. Not Available [facility] - Manual Order Only [address], [place], [address], 09/24/2024 07:18:41 09/16/1909/16/2024 LIPOP ROTEI N FRACT IONAT ION, NMR W/LIP ID PANEL LDL-P 1586 nmol/ L <935 high Relat steve risk: Optim al <935; Moder ate 935-1 816; High >1816 nmol/ L. Refer ence range is 592-2 404 nmol/ L. This test was devel oped and its elo tical perfo rmanc e kim cteri stics have been deter mined by [facility] [employer] at [facility]. It has not been clear ed or appro samuel by the U.S. Food and Drug Admin istra tion. This assay has been valid ated pursu ant to the CLIA regul ation s and is used for clini solange purpo ses. Not Available [facility] - Manual Order Only [address], [place], [address], 09/24/2024 07:18:41 09/16/1909/16/2024 LIPOP ROTEI N FRACT IONAT ION, NMR W/LIP ID PANEL small LDL-P 427 nmol/ L <467 Relat steve risk: Optim al <467; Moder ate 467-8 20; High >820 nmol/ L. Refer ence range is <1408 nmol/ L. Not Available [facility] - Manual Order Only [address], [place], [address], 09/24/2024 07:18:41 09/16/19 25 09/16/2024 LIPOP ROTEI N FRACT IONAT ION, NMR W/LIP ID PANEL LDL size 21.4 nm >20.5 Relat steve risk: Optim al >20.5 ; High <20.6 nm. Refer ence range is 20.0- 22.3 nm. Not Available [facility] - Manual Order Only [address], [place], [address], 09/24/2024 07:18:41 09/16/19 25 09/16/2024 LIPOP ROTEI N FRACT IONAT ION, NMR W/LIP ID PANEL HDL-P 44.4 umol/ L >32.8 Relat steve risk: Optim al >32.8 ; Moder ate 29.2- 32.8; High <29.2 umol/ L. Refer ence range is 21.1- 43.4 umol/ L. Not Available [facility] - Manual Order Only [address], [place], [address], 09/24/2024 07:18:41 09/16/1909/16/2024 LIPOP ROTEI N FRACT IONAT ION, NMR W/LIP ID PANEL large HDL-P 8.1 umol/ L >7.2 Relat steve risk: Optim al >7.2; Moder ate 5.3-7 .2; High <5.3 umol/ L. Refer ence range is >3.5 umol/ L. Not Available [facility] - Manual Order Only [address], [place], [address], 09/24/2024 07:18:41 09/16/1909/16/2024 LIPOP ROTEI N FRACT IONAT ION, NMR W/LIP ID PANEL HDL size 9.1 nm >9.0 Relat steve risk: Optim al >9.0; Moder ate 8.7-9 .0; High <8.7 nm. Refer ence range is 8.3-1 0.5 nm. Not Available [facility] - Manual Order Only [address], [place], [address], 09/24/2024 07:18:41 09/16/1909/16/2024 LIPOP ROTEI N FRACT IONAT ION, NMR W/LIP ID PANEL large VLDL-P 8.1 nmol/ L <3.7 high Relat steve risk: Optim al <3.7; Moder ate 3.7-6 .1; High >6.1 nmol/ L. Refer ence range is <16.0 nmol/ L. Not Available [facility] - Manual Order Only [address], [place], [address], 09/24/2024 07:18:41 09/16/19 25 09/16/2024 LIPOP ROTEI N FRACT IONAT ION, NMR W/LIP ID PANEL VLDL size 52.3 nm <47.1 high Relat steve risk: Optim al <47.1 ; Moder ate 47.1- 49.0; High >49.0 nm. Refer ence range is 41.1- 61.7 nm. Not Available [facility] - Manual Order Only [address], [place], [address], 09/24/2024 07:18:41 09/16/19 25 09/16/2024 THYRO ID STIMU LATIN G HORMO NE (TSH) thyroid stimulating hormone (TSH) 3.37 mlu/L 0.40-4 .50 Not Available [facility] - Manual Order Only [address], [place], [address], 09/24/2024 07:18:42 09/16/19 25 09/16/2024 URIC ACID uric acid 6.0 mg/dL 2.5-7. 3 Not Available [facility] - Manual Order Only [address], [place], [address], 09/24/2024 07:18:42 09/16/19 25 09/16/2024 AST aspartate amino transferase 26 units /L 10-45 Not Available [facility] [address] [place], [address], 09/16/2024 16:35:20 09/16/19 25 09/16/2024 BASIC METAB OLIC PANEL sodium 137 mmol/ L 135-14 5 Not Available [facility] [address] [place], [address], 09/16/2024 16:35:19 09/16/19 25 09/16/2024 BASIC METAB OLIC PANEL potassium 4.2 mmol/ L 3.3-4. 9 Not Available [facility] [address] [place], [address], 09/16/2024 16:35:19 09/16/19 25 09/16/2024 BASIC METAB OLIC PANEL chloride 98 mmol/ L 97-110 Not Available [facility] [address] [place], [address], 09/16/2024 16:35:19 09/16/19 25 09/16/2024 BASIC METAB OLIC PANEL carbon dioxide 26 mmol/ L 22-32 Not Available [facility] [address] [place], [address], 09/16/2024 16:35:19 09/16/19 25 09/16/2024 BASIC METAB OLIC PANEL anion gap 13 mmol/ L 2-15 Not Available [facility] [address] [place], [address], 09/16/2024 16:35:19 09/16/19 25 09/16/2024 BASIC METAB OLIC PANEL blood urea nitrogen 24 mg/dL 8-25 Not Available [facility] [address] [place], [address], 09/16/2024 16:35:19 09/16/19 25 09/16/2024 BASIC METAB OLIC PANEL creatinine 1.07 mg/dL 0.60-1 .10 Not Available [facility] [address] [place], [address], 09/16/2024 16:35:19 09/16/19 25 09/16/2024 BASIC METAB OLIC PANEL glomerular filtration rate 66 >90 Inter preti ve Data Refer ence Inter jaya Lizbeth l >/= 90 mL/mi n/1.7 3m2 Mildl y decre ased* 60 - 89 mL/mi n/1.7 3m2 Mildl y to moder ately decre ased 45 - 59 mL/mi n/1.7 3m2 Moder ately to sever lou decre ased 30 - 44 mL/mi n/1.7 3m2 Sever lou decre ased 15 - 29 mL/mi n/1.7 3m2 Kidne y Failu re < 15 mL/mi n/1.7 3m2 *Rela tive to young adult level Estim ated glome rular filtr ation rate is deter mined by the CKD-E PI equat ion recom bhaskar d by the Natio nal Kidne y Found ation (KDIG O 2011 Clini solange Pract ice Guide line for the Evalu ation and Manag ement of Chron ic Kidne y Disea se. Kidne y Intnl Suppl Aug 2012; 3:1). The CKD-E PI equat ion shoul d not be used for patie nts with unsta ble renal funct ion and has not been valid ated in child cynthia and those over 70. Curre nt inter preti ve data was last revie 03/17 . Not Available [facility] [address], [place], [address], 09/16/2024 16:35:19 09/16/19 25 09/16/2024 BASIC METAB OLIC PANEL glucose 88 mg/dL 70-199 Inter preti ve Data Fasti ng gluco se >/= 126 mg/dl is diagn ostic for diabe oc. Fasti ng is defin ed as no calor ic intak e for at least 8 hours . Fasti ng gluco se betwe en 100 mg/dl to 125 mg/dl is diagn ostic of predi abete s. In a patie nt with class ic sympt oms of hyper glyce olivier or hyper glyce lily crisi s, a rando m gluco se >/= 200 mg/dl is diagn ostic for diabe oc. In the absen ce of unequ ivoca l hyper glyce olivier, resul ts citlalli rodriguez be confi rmed by jhonatan hernandes. The class ifica tion and Diagn osis of Diabe oc Diabe oc Care 2017; 40 (Supp l. 1):S1 1. Hector ahmadi inter preti ve data was last jae ed 07/11 . Not Available [facility] [address] [place], [address], 09/16/2024 16:35:19 09/16/19 25 09/16/2024 BASIC METAB OLIC PANEL calcium 10.2 mg/dL 8.5-10 .3 Not Available [facility] [address] [place], [address], 09/16/2024 16:35:19 09/16/19 25 09/16/2024 CBC WITH DIFFE RENTI AL white blood count 6.8 K/cum m 3.8-9. 9 Not Available [facility] [address] [place], [address], 09/16/2024 13:38:56 09/16/19 25 09/16/2024 CBC WITH DIFFE RENTI AL red blood count 3.80 M/cum m 3.90-5 .20 low Not Available [facility] [address], [place], [facility], 09/16/2024 13:38:56 09/16/19 25 09/16/2024 CBC WITH DIFFE RENTI AL hemoglobin 11.6 g/dL 11.9-1 5.5 low Not Available [facility] [address] [place], [address], 09/16/2024 13:38:56 09/16/19 25 09/16/2024 CBC WITH DIFFE RENTI AL hematocrit 36.5 % 35.6-4 5.5 Not Available [address], [facility], 09/16/2024 13:38:56 09/16/19 25 09/16/2024 CBC WITH DIFFE RENTI AL mean corpuscular volume 96.1 fL 81.3-9 6.4 Not Available [facility] [address] [place], [address], 09/16/2024 13:38:56 09/16/19 25 09/16/2024 CBC WITH DIFFE RENTI AL mean corpuscular hemoglobin 30.5 pg 27.1-3 3.3 Not Available [address], [address], 09/16/2024 13:38:56 09/16/19 25 09/16/2024 CBC WITH DIFFE RENTI AL mean corpuscular HGB conc 31.8 g/dL 32.3-3 5.7 low Not Available [address], [address], 09/16/2024 13:38:56 09/16/19 25 09/16/2024 CBC WITH DIFFE RENTI AL RDW standard deviation 45.5 fL 35.7-4 8.1 Not Available [address], [address], 09/16/2024 13:38:56 09/16/19 25 09/16/2024 CBC WITH DIFFE RENTI AL RDW coefficient of variation 12.9 % 11.1-1 4.9 Not Available [address], [address], 09/16/2024 13:38:56 09/16/19 25 09/16/2024 CBC WITH DIFFE RENTI AL platelet count 282 K/cum m 150-40 0 Not Available [address], [address], 09/16/2024 13:38:56 09/16/19 25 09/16/2024 CBC WITH DIFFE RENTI AL mean platelet volume 9.5 fL 9.1-12 .3 Not Available [address], [address], 09/16/2024 13:38:56 09/16/19 25 09/16/2024 CBC WITH DIFFE RENTI AL neutrophils percent auto 67.2 % Inter preti ve Data Perce nt cell count refer ence range s are not repor rafael, since disco rdanc e with absol [place] value s may lead to misin terpr etati on of CBC data. Curre nt Inter preti ve Data was last jae ed on 12/04 . Not Available [facility] [address] [place], [address], 09/16/2024 13:38:56 09/16/1909/16/2024 CBC WITH DIFFE RENTI AL immature grans percent auto 0.0 % Inter preti ve Data Perce nt cell count refer ence range s are not repor rafael, since disco rdanc e with absol [place] value s may lead to misin terpr etati on of CBC data. Curre nt Inter preti ve Data was last jae ed on 12/04 . Not Available [address], [address], 09/16/2024 13:38:56 09/16/1909/16/2024 CBC WITH DIFFE RENTI AL lymphocytes percent auto 23.6 % Inter preti ve Data Perce nt cell count refer ence range s are not repor rafael, since disco rdanc e with absol [place] value s may lead to misin terpr etati on of CBC data. Curre nt Inter preti ve Data was last jae ed on 12/04 . Not Available [facility] [address] [place], [address], 09/16/2024 13:38:56 09/16/1909/16/2024 CBC WITH DIFFE RENTI AL monocytes percent auto 8.1 % Inter preti ve Data Perce nt cell count refer ence range s are not repor rafael, since disco rdanc e with absol [place] value s may lead to misin terpr etati on of CBC data. Curre nt Inter preti ve Data was last jae ed on 12/04 . Not Available [facility] [address] [place], [address], 09/16/2024 13:38:56 09/16/19 25 09/16/2024 CBC WITH DIFFE RENTI AL eosinophils percent auto 0.4 % Inter preti ve Data Perce nt cell count refer ence range s are not repor rafael, since disco rdanc e with absol [place] value s may lead to misin terpr etati on of CBC data. Curre nt Inter preti ve Data was last jae ed on 12/04 . Not Available [address], [address], 09/16/2024 13:38:56 09/16/19 25 09/16/2024 CBC WITH DIFFE RENTI AL basophils percent auto 0.7 % Inter preti ve Data Perce nt cell count refer ence range s are not repor rafael, since disco rdanc e with absol [place] value s may lead to misin terpr etati on of CBC data. Curre nt Inter preti ve Data was last jae ed on 12/04 . Not Available [address], [address], 09/16/2024 13:38:56 09/16/19 25 09/16/2024 CBC WITH DIFFE RENTI AL neutrophils absolute auto 4.6 K/cum m 1.7-6. 5 Not Available [address], [address], 09/16/2024 13:38:56 09/16/19 25 09/16/2024 CBC WITH DIFFE RENTI AL immature grans absolute auto 0.0 K/cum m 0.0-0. 1 Not Available [address], [address], 09/16/2024 13:38:56 09/16/19 25 09/16/2024 CBC WITH DIFFE RENTI AL lymphocytes absolute auto 1.6 K/cum m 0.8-3. 3 Not Available [address], [address], 09/16/2024 13:38:56 09/16/19 25 09/16/2024 CBC WITH DIFFE RENTI AL monocytes absolute auto 0.6 K/cum m 0.2-0. 8 Not Available [address] [place], [address], 09/16/2024 13:38:56 09/16/19 25 09/16/2024 CBC WITH DIFFE RENTI AL eosinophils absolute auto 0.0 K/cum m 0.0-0. 5 Not Available [address], [address], 09/16/2024 13:38:56 09/16/19 25 09/16/2024 CBC WITH DIFFE RENTI AL basophils absolute auto 0.1 K/cum m 0.0-0. 1 Not Available [address] [place], [address], 09/16/2024 13:38:56 09/16/19 25 09/16/2024 CBC WITH DIFFE RENTI AL nucleated red blood cells 0.00 K/mm3 0.00-0 .01 Not Available [address], [address], 09/16/2024 13:38:56 09/30/19 25 09/30/2024 gait test (PROC ) Time taken to walk 4M 6.27 Not Available Main Office [address], [address], 09/08/2024 16:14:42 09/30/19 25 09/30/2024 gait test (PROC ) Gait speed in meters p/s .63 Not Available Main O ffice [address], [address], 09/08/2024 16:14:42 09/30/19 25 09/30/2024 body compo sitio n elo sis (PROC ) Weight 236.1 Not Available Main Offic e [address], [address], 09/08/2024 16:14:41 09/30/19 25 09/30/2024 body compo sitio n elo sis (PROC ) Skeletal Muscle Mass (SMM) 67.7 Not Available Main O ffice [address] [address], [place], [address], 09/08/2024 16:14:41 09/30/19 25 09/30/2024 body compo sitio n elo sis (PROC ) Body Fat Mass (BFM) 111.8 Not Available Main Office [address] [address], [place], [address], 09/08/2024 16:14:41 09/30/19 25 09/30/2024 body compo sitio n elo sis (PROC ) Body Mass Index (BMI) 43.2 Not Available Main Office [address] [address], [place], [address], 09/08/2024 16:14:41 09/30/19 25 09/30/2024 body compo sitio n elo sis (PROC ) Percent Body Fat (PBF) 47.4 Not Available Main O ffice [address] [address], [place], [address], 09/08/2024 16:14:41 09/30/19 25 09/30/2024 body compo sitio n elo sis (PROC ) Basal Metabolic Rate (BMR) 1587 Not Available Main Office [address] [place] [address], [place], [address], 09/08/2024 16:14:41 09/30/19 25 09/30/2024 alphonso metry testi ng* FVC [L] - % 68 Not Available Main O ffice [address] [address], [place], [address], 09/08/2024 16:14:41 09/30/19 25 09/30/2024 alphonso metry testi ng* FEV1 [L] - % 71 Not Available Main Office [address] [address], [place], [address], 09/08/2024 16:14:41 09/30/19 25 09/30/2024 alphonso metry testi ng* FEV1/FVC Ratio- % 104 Not Available Main O [facility]ice [address] [address], [place], [address], 09/08/2024 16:14:41 09/30/19 25 09/30/2024 mds manager test* Unknown Analyte 40 Not Available Main O ffice [address] [address], [place], [address], 09/08/2024 16:14:42 09/30/19 25 09/30/2024 mds manager test* Unknown Analyte 35 Not Available [address] [facility] [address] [address], [place], [address], 09/08/2024 16:14:42 09/30/19 25 09/30/2024 mds manager test* Unknown Analyte 40 Not Available Main [facility] [address] [address], [place], [address], 09/08/2024 16:14:42 09/30/19 25 09/30/2024 mds manager test* Unknown Analyte 30 Not Available [address] [facility] [address] [address], [place], [address], 09/08/2024 16:14:42 09/30/19 25 09/30/2024 mds manager test* Unknown Analyte 35 Not Available Main [facility] [address] [address], [place], [address], 09/08/2024 16:14:42 09/30/19 25 09/30/2024 mds manager test* Unknown Analyte 30 Not Available [address] [facility] [address], [address], 09/08/2024 16:14:42 09/30/19 25 09/30/2024 visua l acuit y* Status if not performed Peg howe ed/def erred Not Available Main Office [address] [address], [place], [address], 09/08/2024 16:14:41 09/30/19 25 09/30/2024 visua l acuit y* Opthamologis t Name Dr Haile hernandes Not Available Main Office [address] [address], [place], [address], 09/08/2024 16:14:41 09/30/19 25 09/30/2024 visua l acuit y* Date of Last Appointment 2023 Not Available Main Office [address] [address], [place], [address], 09/08/2024 16:14:41 09/13/19 24 09/13/2023 audio gram No observ ation record ed. [facility] [place] [facility] [address] [address], [place], [address], 09/13/2023 15:16:48 09/13/19 24 09/13/2023 elect jourdanar diogr am No observ ation record ed. [facility] [address] [address], [place], [address], 09/13/2023 15:14:44 09/13/19 24 09/13/2023 ankle brach ial index No observ ation record ed. [facility] [address] [address], [place], [address], 09/13/2023 15:14:59 09/19/19 24 09/19/2023 NM, myoca rdial perfu kay scan, w/ stres s No observ ation record ed. [facility] [address] [place], [address], 09/20/2023 09:07:00 09/19/19 24 09/19/2023 trish connelly cardi olite stres s test (PROC ) No observ ation record ed. [facility] [address] [place], [address], 09/20/2023 09:06:47 10/23/19 24 10/23/2023 CT, chest , w/wo contr ast No observ ation record ed. [facility] [address] [place], [address], 10/24/2023 08:26:02 10/27/19 24 10/27/2023 XR, chest , 2 view No observ ation record ed. [facility] [address] [facility] , [place], [address], 10/27/2023 22:01:06 11/16/19 24 11/16/2023 MAMMO , scree jose guadalupe, bilat eral No observ ation record ed. [facility] [address] [place], [address], 11/16/2023 14:19:48 02/01/20 24 02/01/2024 XR, chest , 2 view No observ ation record ed. [address] [place], [address], 03/24/2024 13:12:25 06/03/20 24 06/03/2024 DEXA No observ ation record ed. [facility] [address] [facility], [place], [address], 06/03/2024 15:01:22 08/13/20 24 08/13/2024 US, myrna x, kendra s, extre mity, compl ete No observ ation record ed. [facility] [address] [place], [address], 09/30/2024 16:14:18 08/25/20 24 08/25/2024 CT, abdom en, w/ contr ast No observ ation record ed. [facility] [address] [place], [address], 09/30/2024 16:14:17 09/08/19 25 09/30/2024 audio gram No observ ation record ed. [facility] [address] [facility] [address], [place], [address], 09/30/2024 16:19:40 09/08/19 25 09/30/2024 austyn nagel am No observ ation record ed. [facility] [address] [facility] [address], [place], [address], 09/30/2024 16:19:43 09/08/19 25 09/30/2024 ankle brach ial index No observ ation record ed. [facility] [address] [facility] [address], [place], [address], 09/30/2024 16:19:58 09/19/19 25 09/19/2024 XR, hip + pelvi s, unila teral , 2 or 3 view No observ ation record ed. [facility] [address] [place], [address], 09/30/2024 16:14:16 11/18/19 25 11/17/2024 MAMMO , scree jose guadalupe, bilat eral No observ ation record ed. [facility] [address], [place], [address], 11/17/2024 12:35:18 Result Notes None recorded. 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 Active 2020 Dede Eckles null, [place] 14:10:26 Obstruct steve sleep apnea syndrome 73595998 Active 2020 Dede Eckles [place] 14:10:46 Atrial fibrilla tion 81990182 Active 2020 Dede Eckles [place] 14:10:57 Benign essentia l hyperten kay 3807568 Active 2020 Dede Eckles [place] 1 14:11:05 Continuo us positive airway pressure ventilat ion treatmen t Active 2020 Dede Eckles [place] 1 14:12:09 Osteopor osis 94776759 Active 2020 Dede Eckles [place] 1 14:14:12 Bone density scan 644675785 Active 2019 5 severe osteoporo sis, 02/07/2022 osteopeni a Dede Eckles [place] 2 10:19:22 Obesity 272700728 Active 2020 Dede Eckles [place] 1 14:22:09 Arthriti s 5210788 Active 2020 Dede Eckles [place] 1 14:22:16 Polyp of colon 87414064 Completed 202009/03/2020 Dede Eckles [place] 1 14:22:33 Gastroes ophageal reflux disease 575278319 Active 2020 Dede Eckles [place] 1 14:22:44 Persiste nt insomnia 807048634 Active 2020 Dede Eckles [place] 1 14:23:02 Transien t cerebral ischemia 238507183 Active 2020 Dede Eckles [place] 1 14:23:36 Colonosc opy Active 2021 colon polyp rec repeat 3 years Dede Eckles [place] 4 12:15:19 Ophthalm ic examinat ion and evaluati on Active 2021 DR Stroud 10/17/2022 Dede [place]les [place] 3 11:35:51 Renal mass 498399896 Active 2022 Isela Jeter MD [address] [facility], [address], [place], [address], [place] 3 14:18:33 Notes:Some problems listed i n Documents: #[id number], #[id number] could not be added to this patient's chart. Please review these documents and add these problems to the patient's chart manually as needed. Problem Notes None recorded. Procedures Surgical History Date Name Laterality Status Provider Name and Address Organization Details Recorded Time 09/30/19 25 [facility] completed Dede Eckles [place] 09/08/2024 16:14:36 11/16/19 24 Most Recent Mammogram completed Dede Eckles [place] 11/16/2023 14:20:12 09/13/19 24 [facility] [place] Dede Eckles [place] 09/13/2023 13:39:17 06/07/20 22 [facility] [place] Dede [place]les [place] 05/24/2022 16:52:54 05/12/20 21 [facility] [place] Dede [place]les [place] 04/28/2021 12:11:00 06/27/20 18 Shoulder joint surgery completed Dede Eckles [place] 09/13/2020 14:17:06 cardiac catheterization completed Dede Eckles [place] 09/03/2020 14:30:46 Cholecystectomy completed Dede Eckles [place] 09/03/2020 14:31:00 implantation of joint prosthesis completed Dede Eckles [place] 09/13/2020 14:16:24 Imaging Results None recorded. Procedure Notes None recorded. Medical Equipment None Reported. Allergies Allergen ID Allergen Name Allergen Category Reaction Reaction Severity Criticality Documentation Date Start Date Code Code System Note Provider Name and Address Organization Details Recorded Time 65043 DuoNeb medicatio n palpitati ons Not available Not available 09/03/2020 85592 9 RxNorm Dede Cornell null, [place] 14:21:40 Medications Name Sig Start Date Stop Date Status Note LastModified by Organization Details LastModified Time cyclobenzap rine 10 mg tablet Take 1 tablet 3 times a day by oral route, for back spasms. 09/30 completed Not Available Not Available Not Available amoxicillin 500 mg capsule TAKE FOUR CAPSULES BY MOUTH ONE HOUR BEFORE APPOINTME NT active Not Available Not Available No t Available furosemide 40 mg tablet Take 1 tablet by mouth twice daily 2024 active Not Available Not Available Not Avai lable carvedilol 6.25 mg tablet TAKE 1 TABLET BY MOUTH TWICE DAILY active Not Available Not Available No t Available prednisone 10 mg tablet TAKE 4 TABLETS BY MOUTH ONCE DAILY FOR 3 DAYS 3 ONCE DAILY FOR 3 DAYS 2 ONCE DAILY FOR 3 DAYS 1 ONCE DAILY FOR 3 DAYS THE STOP 12/16 completed Not Available Not Available Not Available doxycycline hyclate 100 mg capsule TAKE 1 CAPSULE BY MOUTH TWICE DAILY 08/04 completed Not Available Not Available Not Available flecainide 150 mg tablet TAKE ONE TABLET BY MOUTH EVERY DAY NEEDED FOR ATRIAL FIBRILLAT ION 09/13 completed Not Available Not Available Not Available azithromyci n 250 mg tablet TAKE 2 TABLETS (500 MG) BY ORAL ROUTE ONCE DAILY FOR 1 DAY THEN 1 TABLET (250 MG) BY ORAL ROUTE ONCE DAILY FOR 4 DAYS 08/04 completed Not Available Not Available Not Available B Complex-Vit miller B12 tablet 1 po daily. 2022 active Not Available Not Available Not Avai lable hydrocodone 5 mg-acetamin ophen 325 mg tablet 08/04 completed Not Available Not Available Not Available prednisone 20 mg tablet TAKE 2 TABLETS BY MOUTH ONCE DAILY FOR 4 DAYS WITH FOOD OR MILK 07/31 completed Not Available Not Available Not Available metronidazo le 250 mg tablet Take 1 tablet every 6 hours by oral route. 03/28 completed Not Available Not Available Not Available verapamil ER (SR) 180 mg tablet,exte nded release Take 1 tablet by mouth once daily 2024 active Not Available Not Available Not Avai lable metronidazo le 500 mg tablet Take 1 tablet every 8 hours by oral route. 09/30 completed Not Available Not Available Not Available allopurinol 100 mg tablet TAKE 1 TABLET BY MOUTH ONCE DAILY active Not Available Not Available No t Available ciprofloxac in 500 mg tablet Take 1 tablet every 12 hours by oral route. 09/30 completed Not Available Not Available Not Available omeprazole 40 mg capsule,del ayed release Take 1 capsule by mouth twice daily 2024 active Not Available Not Available Not Avai lable tramadol 50 mg tablet Take 1 tablet every 6 hours by oral route. active Not Available Not Available No t Available potassium chloride ER 20 mEq tablet,exte nded release(par t/cryst) Take 1 tablet by mouth twice daily 09/13 completed Not Available Not Available Not Available losartan 25 mg tablet TAKE 1 TABLET BY MOUTH ONCE DAILY active Not Available Not Available No t Available budesonide 0.25 mg/2 mL suspension for nebulizatio n USE 1 VIAL IN NEBULIZER TWICE DAILY NEEDED FOR COUGH FOR SHORTNESS OF BREATH FOR WHEEZING (RINSE WITH WATER AFTER USE. DO NOT SWALLOW) 09/13 completed Not Available Not Available Not Available metoprolol succinate ER 25 mg tablet,exte nded release 24 hr TAKE 2 TABLETS BY MOUTH TWICE DAILY 03/28 completed Not Available Not Available Not Available cefuroxime axetil 500 mg tablet TAKE 1 TABLET BY MOUTH EVERY 12 HOURS 09/13 completed Not Available Not Available Not Available estradiol 0.01% (0.1 mg/gram) vaginal cream Insert 1 applicato rful 3 times a week by vaginal route. 09/13 completed Not Available Not Available Not Available methylpredn isolone 4 mg tablets in a dose pack take dose pack po as directed. 07/31 completed Not Available Not Available Not Available albuterol sulfate HFA 90 mcg/actuati on aerosol inhaler INHALE 2 PUFFS BY MOUTH EVERY 6 HOURS NEEDED FOR SHORTNESS OF BREATH FOR WHEEZING active Not Available Not Available No t Available colchicine 0.6 mg tablet TAKE 1/2 (ONE-HALF ) TABLET BY MOUTH TWICE DAILY FOR 6 DAYS THEN START ALLOPURIN OL active Not Available Not Available No t Available fluticasone propionate 50 mcg/actuati on nasal spray,suspe nsion USE 2 SPRAY(S) IN EACH NOSTRIL ONCE DAILY active Not Available Not Available No t Available sertraline 50 mg tablet TAKE 1 TABLET BY MOUTH EVERY DAY AT BEDTIME 09/30 completed Not Available Not Available Not Available doxycycline hyclate 100 mg tablet TAKE 1 TABLET BY MOUTH TWICE DAILY 01/17 completed Not Available Not Available Not Available amoxicillin 500 mg-potwyattiu m clavulanate 125 mg tablet TAKE 1 TABLET BY MOUTH EVERY 8 HOURS UNTIL GONE FOR INFECTION 01/17 completed Not Available Not Available Not Available Dulcolax (bisacodyl) 5 mg tablet,gennaro yed release TAKE 1-2 2 TABLETS (10 MG) BY ORAL ROUTE ONCE DAILY 09/13 completed Not Available Not Available Not Available neomycin-po lymyxin-hyd rocort 3.5 mg-10,000 unit/mL-1 % ear drops,susp INSTILL 4 DROPS INTO AFFECTED EAR(S) BY OTIC ROUTE 3 TIMES PER DAY 01/17 completed Not Available Not Available Not Available Tylenol PM Extra Strength 25 mg-500 mg tablet TAKE 1 TABLETS BY ORAL ROUTE ONCE DAILY AT BEDTIME PRN 09/13 completed Not Available Not Available Not Available calcium 500 mg (as carbonate)- vitamin D3 5 mcg (200 unit) tablet Take 2 tablets every day by oral route. active Not Available Not Available No t Available Vitamin C 1000mg daily active Not Available Not Available No t Available multivitami n 1 PO QD active Not Available Not Available Not Available Brovana 15 mcg/2 mL solution for nebulizatio n Inhale 2 mL twice a day by inhalatio n route. 01/17 completed Not Available Not Available Not Available Stool Softener-St imulant Laxative 8.6 mg-50 mg tablet TAKE 1 TO 2 TABLETS BY MOUTH TWICE DAILY NEEDED 2024 active Not Available Not Available Not Avai lable Mucinex 1,200 mg tablet, extended release 1 po bid 09/13 completed Not Available Not Available Not Available alpha lipoic acid 100 mg capsule Take 1 capsule every day by oral route. active Not Available Not Available No t Available Prolia 60 mg/mL subcutaneou s syringe INJECT 1 MILLILITE R (60 MG) BY SUBCUTANE OUS ROUTE EVERY 6 MONTHS IN THE UPPER ARM, UPPER THIGH OR ABDOMEN 2020 active Not Available Not Available Not Avai lable melatonin 10 mg tablet Take 1 tablet every day by oral route as needed. 09/13 completed Not Available Not Available Not Available Eliquis 5 mg tablet TAKE 1 TABLET BY MOUTH TWICE DAILY active Not Available Not Available No t Available potassium chloride ER 20 mEq tablet,exte nded release TAKE 1 TABLET BY MOUTH ONCE DAILY active Not Available Not Available No t Available Spiriva Respimat 2.5 mcg/actuati on solution for inhalation Inhale 2 puffs every day by inhalatio n route. 09/13 completed Not Available Not Available Not Available Metamucil 0.4 gram capsule Take 1 capsule every day by oral route as needed. 09/13 completed Not Available Not Available Not Available Trelegy Ellipta 100 mcg-62.5 mcg-25 mcg powder for inhalation INHALE 1 PUFF EVERY 24 HOURS (RINSE AND GARGLE AFTER USE) active Not Available Not Available No t Available Yupelri 175 mcg/3 mL solution for nebulizatio n Inhale 3 mL every day by nebulizat ion route. 12/07 completed Not Available Not Available Not Available Fluzone High-Dose Quad (PF) 240 mcg/0.7 mL IM syringe PHARMACIS T ADMINISTE RED IMMUNIZAT ION ADMINISTE RED AT TIME OF DISPENSIN G 09/03 completed Not Available Not Available Not Available Wegovy 0.25 mg/0.5 mL subcutaneou s pen injector INJECT 1 SYRINGE SUBCUTANE OUSLY ONCE A WEEK 09/30 completed Not Available Not Available Not Available Zepbound 2.5 mg/0.5 mL subcutaneou s pen injector INJECT 2.5 MG BY SUBCUTANE OUS ROUTE ONCE WEEKLY FOR 4 WEEKS active Not Available Not Available No t Available Vitals Date Recorded Body height Body mass index (BMI) Body weight Heart rate Respiratory rate Systolic blood pressure Diastolic blood pressure Provider Name and Address Organization Details Last Updated DateTime 4 157.48 cm 42.8 kg/m2 480532. 61 g 64 /min 12 /min 120 mm[Hg] 60 mm[Hg] [place] 4 14:02:01 Date Recorded Body height Body mass index (BMI) Body weight Heart rate Respiratory rate Systolic blood pressure Diastolic blood pressure Provider Name and Address Organization Details Last Updated DateTime 5 157.48 cm 43.2 kg/m2 240900. 8 g 72 /min 12 /min 130 mm[Hg] 68 mm[Hg] Dede CHATMAN - MAEGAN JETERDELL 5 15:23:43 Date Recorded Body height Body mass index (BMI) Body weight Heart rate Respiratory rate Systolic blood pressure Diastolic blood pressure Provider Name and Address Organization Details Last Updated DateTime 4 157.48 cm 43.3 kg/m2 295486. 39 g 72 /min 12 /min 128 mm[Hg] 60 mm[Hg] Dede CHATMAN - [place], [place] 4 13:23:17 Date Recorded Body height Body mass index (BMI) Body weight Heart rate Respiratory rate Systolic blood pressure Diastolic blood pressure Provider Name and Address Organization Details Last Updated DateTime 4 157.48 cm 42.4 kg/m2 978203. 43 g 72 /min 12 /min 122 mm[Hg] 62 mm[Hg] Dede CHATMAN - [place], [place] 4 12:30:41 Date Recorded Body height Body mass index (BMI) Body weight Heart rate Respiratory rate Systolic blood pressure Diastolic blood pressure Provider Name and Address Organization Details Last Updated DateTime 4 157.48 cm 42.4 kg/m2 920988. 43 g 72 /min 12 /min 132 mm[Hg] 60 mm[Hg] Dede CHATMAN - [place], [place] 4 13:41:56 Social History Question Answer Notes LastModified by Organization Details LastModified Time Tobacco Smoking Status Former Smoker social no habit age 17 Dede Cornell kassandraLURDES - [place]CS[place], [place] 09/13/2020 14:13:07 Do You Have An Advance Directive? Yes Information not available 09/13/2020 Are You Blind Or Do You Have Difficulty Seeing? No Information not available 05/12/2021 Is Blood Transfusion Acceptable In An Emergency? Yes Information not available 05/12/2021 What Is Your Level Of Caffeine Consumption? None Information not available 09/13/2020 How Much Tobacco Do You Chew? None Information not available 09/13/2020 In The 14 Days Before Symptom Onset, Have You Had Close Contact With A Laboratory-confi rmed COVID-19 While That Case Was Ill? No Information not available 05/12/2021 In The 14 Days Before Symptom Onset, Have You Had Close Contact With A Person Who Is Under Investigation For COVID-19 While That Person Was Ill? No Information not available 05/12/2021 Have You Been To An Area Known To Be High Risk For COVID-19? No Information not available 05/12/2021 Are You Deaf Or Do You Have Serious Difficulty Hearing? Yes Information not available 05/12/2021 What Type Of Diet Are You Following? REGULAR Information not available 09/13/2020 Which Illicit Or Recreational Drugs Have You Used? None Information not available 09/13/2020 Have You Processed Blood Or Body Fluids From An Ebola Virus Disease Patient Without Appropriate PPE? No Information not available 05/12/2021 Do You Reside In Or Have You Traveled To An Area Where Ebola Virus Transmission Is Active? No Information not available 05/12/2021 Education 2 Year College Informatio n not available 09/13/2020 What Is The Highest Grade Or Level Of School You Have Completed Or The Highest Degree You Have Received? [id number] Information not available 05/12/2021 Have There Been Any Changes To Your Family Or Social Situation? No Information not available 05/12/2021 What Is The Fluoride Status Of Your Home? Fluoridated Information not available 05/12/2021 Are There Any Guns Present In Your Home? No Information not available 09/13/2020 Hard Of Hearing Or Deaf In One Or Both Ears? Yes Information not available 09/13/2020 Have You Recently Or Are You Planning To Travel To An Area With Zika Virus? No Information not available 05/12/2021 Do You Use Insect Repellent Routinely? No Information not available 05/12/2021 Legally Blind In One Or Both Eyes? No Information not available 09/13/2020 Live Alone Or With Others? With Others Information not available 09/03/2020 How Many Children Do You Have? 2 1 Son And 1 Daughter (1 Miscarriage ) Information not available 09/13/2020 Have You Ever Been Counseled For Unhealthy Alcohol Use? No Information not available 09/13/2020 Do You Have Any Pets? No Information not available 05/12/2021 What Is Your Relationship Status? Information not available 05/12/2021 Do You Use Your Seat Belt Or Car Seat Routinely? Yes Information not available 05/12/2021 Seat Belts Used Routinely Yes Information not available 09/13/2020 Do You Have Smoke And Carbon Monoxide Detectors In Your Home? Yes Information not available 05/12/2021 At What Age Did You Start Smoking Tobacco? 1959 Information not available 09/03/2020 Are You Passively Exposed To Smoke? Yes Information not available 09/13/2020 How Much Tobacco Do You Smoke? No States Social Information not available 09/13/2020 General Stress Level Low Information not available 09/13/2020 Do You Use Sunscreen Routinely? Yes Information not available 09/13/2020 How Many Years Have You Smoked Tobacco? 3 Information not available 09/03/2020 Do You Have Difficulty Walking Or Climbing Stairs? Yes Due To Knee And Her Back Information not available 09/30/2024 Sex: Female Functional Status Question Answer Note LastModified by Organizat ion Details LastModified Time Do you or have you ever used smokeless tobacco? Never used smokeless tobacco Information not available 09/03/2020 Are you currently employed? No Information not available 09/03/2020 Do you have transportation difficulties? No Information not available 05/12/2021 Are you able to care for yourself? Yes Information n ot available 05/12/2021 Do you have difficulty dressing or bathing? No Information not available 05/12/2021 Do you or have you ever used e-cigarettes or vape? Never used electronic cigarettes Information not available 09/03/2020 What is your exercise level? None Information not available 09/13/2020 Do you use any illicit or recreational drugs? No Information not available 05/12/2021 Do you or have you ever used any other forms of tobacco or nicotine? No Information not available 05/12/2021 What is your level of alcohol consumption? Occasional 7 DRINKS PER WEEK wine Information not available 09/13/2020 Are you able to walk? YESASSIST Information not available 09/30/2024 Do you have difficulty doing errands alone? No Information not available 05/12/2021 What is your occupation? Retired sr [employer] Information not available 09/13/2020 Mental Status Question Answer Note LastModified by Organizat ion Details LastModified Time Do you feel stressed (tense, restless, nervous, or anxious, or unable to sleep at night)? [id number] Information not available 05/12/2021 Do you have difficulty concentrating, remembering or making decisions? No Information no t available 05/12/2021 Family History Relationship Description Onset Age of this Age Resolved Age Notes LastModified by Organization Details LastModified Time Father Malignant neoplastic disease dec skin cancer peckles Not available 09/13/2020 14:12:03 Father Heart disease peckles Not available 2020 14:32:30 Father Arthritis peckles Not available 09/03/2020 14:32:43 Father Hypertensive disorder peckles Not available 2020 14:32:54 Father Cerebrovascu lar accident peckles Not available 03/2021 14:33:02 Mother Heart disease dec peckles Not available 2020 14:12:35 Mother Heart failure peckles Not available 2020 14:33:12 Mother Malignant tumor of colon peckles Not available 2020 14:33:22 Brother Hyperlipidem ia peckles Not available 2020 14:33:36 Brother Diabetes mellitus peckles Not available 2020 14:33:43 Medical History No medical history recorded. Gynecological History Statement/Question Response Most Recent Mammogram 11/16/2023 Obstetrics History GPAL:G 3 P 0 0 1 2 Type Value Spontaneous 1 Living 2 Total 3 Immunizations Vaccine Type Date Status Note Provider Nam e and Address Organization Details Recorded Time Influenza, split virus, quadrivalent, preservative 0 completed Dede Eckles [place], [place] 09/03/2020 14:12:59 COVID-19, mRNA, LNP-S, PF, 30 mcg/0.3 mL dose 1 completed Dede [place] 01/17/2021 11:57:27 COVID-19, mRNA, LNP-S, PF, 30 mcg/0.3 mL dose 1 completed Dede Eckles [place] 01/17/2021 11:57:43 Pneumococcal conjugate PCV 13 1 completed Dede Eckles [place] 01/17/2021 11:58:49 COVID-19, mRNA, LNP-S, PF, 30 mcg/0.3 mL dose 1 completed Dede Eckles [place] 08/04/2021 15:04:00 RSV, recombinant, protein subunit RSVpreF, adjuvant reconstituted, 0.5 mL, PF 4 completed Dede Eckles [place] 10/02/2023 15:52:55 Pneumococcal conjugate PCV20, polysaccharide [id number] conjugate, adjuvant, PF 4 [place] [address] [place] [address], [id number], [place] 03/24/2024 13:12:20 Past Encounters Encounter ID Performer Location Encounter Start Date Encounter Closed Date Diagnosis/Indication Diagnosis SNOMED-CT Code Diagnosis ICD10 Code Diagnosis Note [id number] Isela Jeter MD MAIN OFFICE [address] [facility] [address] [place] [address] 09/13/2020 13:55:52 09/13/2020 16:04:25 Acute otitis media 8460240 H66.91 Right ear canal red and painful Arthritis 6016186 M19.90 back, hips, knees and right shoulder. Atrial fibrillation 4943 6004 I48.91 intermitte nt on anticoagul ation. Benign ess ential hypertension 1932487 I10 stable Chronic ob structive pulmonary disease 12822889 J44.9 stable Gastroesop hageal reflux disease 464665336 K21.00 stable Obesity 399805375 E66.9 weight loss over 30 pounds is needed. Obstructiv e sleep apnea syndrome 07865990 G47.33 use CPAP Osteoporosis 44257472 M8 1.0 on prolia. Currently has osteopenia . Next DEXA is due in 2021. Persistent insomnia 191 41592 G47.09 stable Transient cerebral ischemia 978433387 G45.9 no recent episode. [id number] Isela Jeter MD MAIN OFFICE [address] [address] 01/17/2021 11:49:32 01/17/2021 12:21:05 Arthritis 2556084 M19.90 back, hips, knees and right shoulder. Atrial fibrillation 4943 6004 I48.91 intermitte nt on anticoagul ation. Benign ess ential hypertension 2205058 I10 stable Chronic ob structive pulmonary disease 43965003 J44.9 stable Gastroesop hageal reflux disease 756788122 K21.00 stable Obesity 416245968 E66.9 weight loss over 30 pounds is needed. Obstructiv e sleep apnea syndrome 72609022 G47.33 use CPAP Osteoporosis 44255216 M8 1.0 on prolia. Currently has osteopenia . Next DEXA is due in 2021. Persistent insomnia 1918 69689 G47.09 stable Transient cerebral ischemia 798260825 G45.9 no recent episode. [id number] Isela Jeter MD MAIN OFFICE [address] [facility], [address] [address] 05/12/2021 14:12:54 05/12/2021 16:04:16 Adult health examination 922011805 Z00.00 Atrial fibrillation 4943 6004 I48.91 intermitte nt on anticoagul ation. Benign ess ential hypertension 3588002 I10 stable Chronic ob structive pulmonary disease 45295982 J44.9 stable Gastroesop hageal reflux disease 015155617 K21.00 stable Obesity 192824852 E66.9 weight loss over 42 pounds is needed. Obstructiv e sleep apnea syndrome 98425217 G47.33 use CPAP Osteoporosis 94235650 M8 1.0 on Prolia. Currently has osteopenia . Next DEXA is due in 2021. Persistent insomnia 1918 16537 G47.09 stable--im proved on current medication . Transient cerebral ischemia 113337969 G45.9 no recent episode. Pain of ri ght shoulder joint [id number] 1288578 M25.511 the patient had a listing of a plate after a fall. She will be having surgery on the right shoulder and is cleared for surgery at this time. 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 Atrial fibrillation 4943 6004 I48.91 intermitte nt on anticoagul ation. Benign ess ential hypertension 2052684 I10 stable Chronic ob structive pulmonary disease 53459979 J44.9 stable Gastroesop hageal reflux disease 309470938 K21.00 stable Obesity 638749848 E66.9 weight loss over 42 pounds is needed. Osteoporosis 81907393 M8 1.0 on Prolia. Currently has osteopenia . Next DEXA is due in 2021. Persistent insomnia 1918003 G47.09 stable--im proved on current medication . Transient cerebral ischemia 008798909 G45.9 no recent episode. Dysarthria 4692688 R47.1 Carotid duplex scan. [id number] Isela Jeter MD MAIN OFFICE [address] [facility], [facility] [address] [place] [address] 12/07/2021 11:34:04 12/07/2021 12:28:45 Chronic constipation 145881524 K59.09 Atrial fibrillation 4943 6004 I48.91 intermitte nt episodes and she remains on anticoagul ation with Eliquis. Benign ess ential hypertension 1047473 I10 stable Chronic ob structive pulmonary disease 20857972 J44.9 stable Gastroesop hageal reflux disease 623674398 K21.00 stable Obesity 762922627 E66.9 weight loss over 42 pounds is needed. Obstructiv e sleep apnea syndrome 19585571 G47.33 use CPAP Osteoporosis 19716408 M8 1.0 on Prolia. Currently has osteopenia . Next DEXA is due in 2021. Persistent insomnia 1918 19961 G47.09 stable--im proved on current medication . Transient cerebral ischemia 052460232 G45.9 no recent episode. [id number] Isela Jeter MD MAIN OFFICE [address] [facility], [address] [address] 06/07/2022 15:05:56 06/07/2022 16:39:07 Adult health examination 521368321 Z00.00 Benign ess ential hypertension 5669854 I10 stable Atrial fibrillation 4943 6004 I48.91 intermitte nt episodes and she remains on anticoagul ation with Eliquis. Arthritis 2165009 M19.90 back, hips, knees and right shoulder. Chronic ob structive pulmonary disease 95562985 J44.9 stable Gastroesop hageal reflux disease 925063310 K21.00 stable Obstructiv e sleep apnea syndrome 76831890 G47.33 use CPAP Osteoporosis 66867186 M8 1.0 on Prolia. Currently has osteopenia . Next DEXA is due in 2021. Persistent insomnia 1918 32105 G47.09 stable--im proved on current medication . Transient cerebral ischemia 073903113 G45.9 no recent episode. Pain in left foot 711820 2165 97739 M79.672 heard a pop lateral arch pain metatarsal . Suspect fracture. She plans to see gas line servicer . Obesity 001006035 E66.9 weight loss over 52 pounds is needed. [id number] Isela Jeter MD MAIN OFFICE [address] [facility], [facility] [address] [place] [address] 10/11/2022 13:44:48 10/11/2022 14:31:53 Arthritis 1492524 M19.90 back, hips, knees and right shoulder. Atrial fibrillation 4943 6004 I48.91 intermitte nt episodes and she remains on anticoagul ation with Eliquis. Benign ess ential hypertension 7316168 I10 stable Chronic ob structive pulmonary disease 42658323 J44.9 stable Gastroesop hageal reflux disease 095528768 K21.00 stable Obesity 274687537 E66.9 weight loss over 52 pounds is needed. Osteoporosis 74341072 M8 1.0 on Prolia. Currently has osteopenia . Next DEXA is due in 2021. Persistent insomnia 1918003 G47.09 stable--im proved on current medication . Transient cerebral ischemia 586295986 G45.9 no recent episode. Renal mass 685067745 N28 .89 make sure it is a right kidney cyst and not a mass.Abdom en and Pelvis CT scan was scheduled. Diverticulitis 371136133 K57.92 under treatment. Abdomen and Pelvis CT scan was scheduled. [id number] Isela Jeter MD MAIN OFFICE [address] [facility], [address] [address] 10/09/2022 11:46:57 10/09/2022 12:01:20 Arthritis 4863525 M19.90 back, hips, knees and right shoulder. Atrial fibrillation 4943 6004 I48.91 intermitte nt episodes and she remains on anticoagul ation with Eliquis. Benign ess ential hypertension 1636999 I10 stable Gastroesop hageal reflux disease 598997617 K21.00 stable Obesity 314674576 E66.9 weight loss over 52 pounds is needed. Osteoporosis 70968496 M8 1.0 on Prolia. Currently has osteopenia . Next DEXA is due in 2021. Diverticulitis 716034263 K57.92 Obstructiv e sleep apnea syndrome 49485735 G47.33 use CPAP Persistent insomnia 1918 59373 G47.09 stable--im proved on current medication . [id number] Isela Jeter MD MAIN OFFICE [address] [facility], [facility] [address] [place] [address] 03/28/2023 14:03:27 03/28/2023 14:41:34 Arthritis 1150146 M19.90 back, hips, knees and right shoulder. Atrial fibrillation 4943 6004 I48.91 intermitte nt episodes and she remains on anticoagul ation with Eliquis. Chronic ob structive pulmonary disease 46700673 J44.9 stable Gastroesop hageal reflux disease 684114889 K21.00 stable Obesity 710779896 E66.9 weight loss over 52 pounds is needed. Osteoporosis 22201678 M8 1.0 on Prolia. Currently has osteopenia . Next DEXA is due in 2021. Persistent insomnia 1918 19421 G47.09 stable--im proved on current medication . Transient cerebral ischemia 996985440 G45.9 no recent episode. Atrophic vaginitis 08790 000 N95.2 [id number] Isela Jeter MD MAIN OFFICE [address] [address] 09/13/2023 13:42:49 09/13/2023 15:35:06 Adult health examination 074311920 Z00.00 Arthritis 0364677 M19.90 back, hips, knees and right shoulder. Medrol pack for October see above. Atrial fibrillation 4943 6004 I48.91 intermitte nt episodes and she remains on anticoagul ation with Eliquis. Benign ess ential hypertension 5306814 I10 stable Chronic ob structive pulmonary disease 14048273 J44.9 stable Gastroesop hageal reflux disease 572150467 K21.00 stable Obesity 179437207 E66.9 weight loss over 52 pounds is needed. Obstructiv e sleep apnea syndrome 36791701 G47.33 use CPAP Osteoporosis 99154146 M8 1.0 on Prolia. Currently has osteopenia . Next DEXA is due in 2021. Persistent insomnia 1918 59413 G47.09 stable--im proved on current medication . Transient cerebral ischemia 313102393 G45.9 no recent episode. [id number] Isela Jeter MD MAIN OFFICE [address] [address] 12/17/2023 13:12:42 12/17/2023 13:55:52 Arthritis 9303212 M19.90 back, hips, knees and right shoulder. Medrol pack for October see above. Atrial fibrillation 4943 6004 I48.91 intermitte nt episodes and she remains on anticoagul ation with Eliquis. Benign ess ential hypertension 2657532 I10 stable Chronic ob structive pulmonary disease 53651103 J44.9 stable Gastroesop hageal reflux disease 585948971 K21.00 stable Obesity 682735967 E66.9 weight loss over 52 pounds is needed. Obstructiv e sleep apnea syndrome 32374394 G47.33 use CPAP Osteoporosis 46682252 M8 1.0 on Prolia. Currently has osteopenia . Next DEXA is due in 2021. Persistent insomnia 1918 19846 G47.09 stable--im proved on current medication . [id number] Isela Jeter MD MAIN OFFICE [address] [address] 03/24/2024 12:04:02 03/24/2024 13:24:40 Administration of pneumococcal vaccine 73977246 Z23 Arthritis 3818558 M19.90 back, hips, knees and right shoulder. Medrol pack for October see above. Atrial fibrillation 4943 6004 I48.91 intermitte nt episodes and she remains on anticoagul ation with Eliquis. Benign ess ential hypertension 2249538 I10 stable Gastroesop hageal reflux disease 076904924 K21.00 stable Obesity 633594161 E66.9 weight loss over 52 pounds is needed. Obstructiv e sleep apnea syndrome 68581027 G47.33 use CPAP Osteoporosis 61769882 M8 1.0 on Prolia. Currently has osteopenia . Next DEXA is due in 2021. Persistent insomnia 1918 00775 G47.09 stable--im proved on current medication . Transient cerebral ischemia 609823599 G45.9 no recent episode. [id number] Isela Jeter MD MAIN OFFICE [address] [address] 06/30/2024 13:23:48 06/30/2024 14:30:06 Atrial fibrillation 55981416 I48.91 intermitte nt episodes and she remains on anticoagul ation with Eliquis. Benign ess ential hypertension 0639350 I10 stable Chronic ob structive pulmonary disease 37781916 J44.9 stable Gastroesop hageal reflux disease 753818828 K21.00 stable Obesity 258541787 E66.9 weight loss over 52 pounds is needed. Obstructiv e sleep apnea syndrome 83792458 G47.33 use CPAP Ophthalmic examination and evaluation 24305209 Z01.00 Osteoporosis 02437241 M8 1.0 on Prolia. Currently has osteopenia . Next DEXA is due in 2021. Persistent insomnia 1918 48978 G47.09 stable--im proved on current medication . Transient cerebral ischemia 000647505 G45.9 no recent episode. [id number] Isela Jeter MD MAIN OFFICE [address] [facility], [address] [place] [address] 09/30/2024 15:11:19 10/01/2024 08:03:22 Adult health examination 991501634 Z00.00 Arthritis 1840305 M19.90 back, hips, knees and right shoulder. Atrial fibrillation 4943 6004 I48.91 intermitte nt episodes and she remains on anticoagul ation with Eliquis. Chronic ob structive pulmonary disease 33152189 J44.9 stable Gastroesop hageal reflux disease 025415064 K21.00 stable Obesity 806377769 E66.9 weight loss over 46 pounds is needed. Obstructiv e sleep apnea syndrome 98720685 G47.33 use CPAP Osteoporosis 74608573 M8 1.0 on Prolia. Currently has osteopenia . Persistent insomnia 1918 71281 G47.09 stable--im proved on current medication . Renal mass 003967336 N28 .89 make sure it is a right kidney cyst and not a mass.Abdom en and Pelvis CT scan was scheduled. Transient cerebral ischemia 764022275 G45.9 no recent episode. 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 G89.29 Seeing orthopedic s and will get an TORIBIO Health Concerns Section Related Observation LastModified by Organization Detai ls LastModified Time None Recorded Concern Status LastModified by Organization Details LastModified Time None Recorded Advance Directives Directive Y: Payers Encounter Date Sequence Insurance Name Policy Number Policy Moore Covered Member ID Moore Member ID Guarantor Name 09/13/2023 1 MEDICARE [employer] Cristela Armandoter [id number] 42 Cristela Kirk 09/13/2023 2 [facility] Cristela Kirk [id number] Cristela Kirk 12/17/2023 1 MEDIC[employer]-[place] Cristela Armandoter [id number] 42 Cristela Kirk 12/17/2023 2 [facility] Cristela Kirk [id number] Cristela Kirk 03/24/2024 1 [employer] Cristela Kirk [id number] 42 Cristela Kirk 03/24/2024 2 [employer] Cristela Kirk [id number] Cristela Kirk 06/30/2024 1 [employer] Cristela Kirk [id number] 42 Cristela Kirk 06/30/2024 2 [employer] Cristela Kirk [id number] Cristela Kirk 09/30/2024 1 [employer] Cristela Kirk [id number] 42 Cristela Kirk 09/30/2024 2 [employer] Cristela Kirk [id number] Cristela Kirk Notes Date Note Type Note Provider Name and Address Organization Details Recorded Time 09/13/2023 text/html WHITE with chest p ain: Was having some lt headiness when walking, says this has resolved. Not sure what the cause. She had CT angiochest done pulmonology 03/12/2023 showing no acute findingsShe uses her oxygen on occ. Still gets pressure in her chest when she walks. She states she feels this is related to her heart. She did well on the PFT today but has weight related Restriction. She needs a 41 pound fat loss.Plan: Schedule cardiac stress test. CBC shows sl anemia. Likely an age related anemia.Plan: Monitor over time. Edema in the Legs: She has varicose veins and legs are dependant without compression most of the day. She also has some OA.Plan: We will be getting cardiac stress test. Needs compression of legs. Vaginal Atrophy: Asking if at her age if she still needs to see a supervisor garment manufacturing. She has been having vaginal dryness with some itching; comes and goes. Says that she has tried everything OTC and nothing has worked; has not tried Premarin cream before.Plan: I would recommend she see Gynecology Kidney Cyst: CT abdomen showed a cyst or mass on the right kidney. She also has some diverticulitis. She had a prior diverticulitis flair for over week and was treated with antibiotics. She currently has no abdominal pain and no fever. Pain in the very low left lower quadrant.Plan: Monitor over time. Left lateral foot pain: Walking down street 3 days ago and L foot popped , very painful, limping. The pain is in the lateral metatarsal of the left foot. I recommended X-ray but she states she has an appointment with the gas line servicer and wants to see him for recommendations.Plan: See gas line servicer as patient desires. Enrolled in CARE program diet and exercise Last Prolia 03/17/2022 booked for 09/27/2022 Dexa 02/22/2022 osteopeniaPlan: Schedule DEXA scan every 2 years and continue Prolia until bones normalizes. Has a back itch that just wont quit. this is secondary to dry skin and I have recommended moisturizing lotions.Plan: Recommend moisturizing lotions. The myocardial perfusion imaging is abnormal with a medium-sized defect during stress and a left ventricular ejection fraction of 66% she will need to have recommendations from cardiology regarding a cardiac catheterization- Doing heart cath on 12/19/2021 DR Cason. Normal for her, no change but increased her metoprolol 2 po bidShe added probiotic for her stomach issues . Constipation and gas When she went to ER one time , they said she is not processing food very well. Needed to take meds for food to go through her bowels.Plan: Colonoscopy 5 years ago showed polyps. Therefore, colonoscopy will be scheduled. The patient will also be started on Senokot-S 2 tablets by mouth daily. Uric acid normal 5.2 after treatment of Colchicine followed by Allopurinol.Plan: Colchicine and Allopurinol. Possible TIA: The patient remains on Eliquis. In in past she felt like she was having a TIA. She reported she felt like her mouth was not forming words right, words were ok. 3 episode in a 2 week period of time. Doing ok now. She had a one brief episode of dysarthria. She is doing well at this time but would like to have vascular studies on her neck and we have agreed. The ultrasound of the carotid shows no hemodynamically significant stenosis or significant interval change. Plan: monitor over time thus far the patient has not had any additional events. Stomach issues, constipation. Having a lot of gas flatulance. Gets bloated. Took tums and gas x , has not slept real good. She took dulcolax other day and felt like had better bm. She did stomach testing EGD 2019, and colon 2017.Plan: Use bowel regimen to avoid constipation. Right shoulder surgery: R shoulder pain, sees DR Spence, plate pulled loose on her R shoulder. He did testing to see why pulled loose. Fell 06/2018 placed plate and screws crushed her shoulder. When moves shoulder 10/10 pain. She will be having surgery on the arm because of the loosening of the plates.Plan: Cleared for Surgery at this time. Surgery as scheduled. 05/17/2021he is having gong graft done R shoulder and remove plate, 05/17/[address] [facility] Dr Spence. Asking about her eliquis has not been instructed on when to stop. The answer is at least 48 hours prior. Stop Eliquis at least 48 hours prior to surgery.Handicapped Form: Asking about handicap sticker for her copd and arthritis.Plan: This has been filled out as a permanent disability. Increased swelling in her L leg, pulm did scan on legs for clots, assuming since has not heard all negative. I have recommended post her shoulder surgery she have the veins evaluated with the vascular team. She has been advised to wear compression. Left leg swells more than the right.Plan: Wear compression stockings. Resume Eliquis post surgery. Evaluate the legs with the vascular team. Thyroid nodules: She had abnormal thyroid nodule in the right thyroid and abnormal LN. Us done on her throat 08/27/2019 mo ago, us to be done November 17. Plan: Keep scheduled f/u. Osteopenia: Last Dexa improved 02/06/2020 to osteopenia, on the prior DEXA scan she had severe osteoporosis (02/24/2015) She still has osteopenia, dexa 02/07/2023 she will continue the Prolia. Plan: DEXA every 2 years. continue the Prolia at 60 mg subcutaneous every 6 months with calcium and vitamin D3. CHL MPO 327 prior 297, previous 324, hs crp elevated at 7.0 up from 4.9 She has arthritis in her right shoulder, back, knees and hips. Plan: Monitor over time. Prior TORIBIO in the back. Hyperlipidemia: the cholesterol is 197, triglyceride 114, HDL 61, and LDL 114 The total LDL particle is 1120 small LDL particle is normal at 295. the LDL size is 21.5.. The HDL size is 9.3 TG/HDL-c is 1.9. GiqkxhchusO5c is 5.1 % indicating the average blood sugar is 100 Vitamin D level is 31.1. Plan: Has insulin resistance --recommended weight loss and limiting of sugars in the diet. COPD- New dx with PFT 05/25/2020 Moderately severe Obstructive Airway Disease. Seeing [facility]( was seeing [facility] prior). The pulmonary function tests show air trapping and no significant wheezing at this juncture. Plan: Albuterol hfa prn , yupelri, Brovana MAGALI- On C-pap nightly. Plan continue CPAP. Paroxysmal Atrial Fibrillation- the patient is anticoagulated with Eliquis for rate control. EKG today shows NSR Plan: Eliquis 5 mg bid, metoprolol ER 25 mg 2 am and 1 in the evening Benign Essential Hypertension-Furosemid e 40 mg bid, Potassium ER 20 meq bid, Verapamil 180 mg daily. GERD: Gastroesophageal reflux continues but the patient states that it is better controlled with the omeprazole. Plan: Omeprazole 40 mg bid Xuaar-Rvtnbsjxn-F shoulder, back, neck, knees.Plan: Monitor over time. She wants a Medrol pack for the first october as her arthritis pain is much better with this and [place]. Insomnia: She is sleeping somewhat better with melatonin and Tylenol when necessary. Plan: Uses melatonin and Tylenol pm. H/o TIA: we're currently treating the paroxysmal A. fib with Eliquis.Plan: Continue anticoagulation. Isela Jeter MD [address] [facility],[address], [place], [address], ISELA GOSS 09/13/2023 15:17:40 12/17/2023 text/html States leg swell ing was increased, not sure if from her fall. She is taking 2 lasix 40 mg daily and this has helped some sushma L leg WHITE with chest pain: Was having some lt headiness when walking, says this has resolved. Not sure what the cause. She had CT angio chest done pulmonology 03/12/2023 showing no acute findingsShe uses her oxygen on occ. Still gets pressure in her chest when she walks. She states she feels this is related to her heart. She did well on the PFT today but has weight related Restriction. She needs a 41 pound fat loss.Plan: Schedule cardiac stress test. This was done CBC shows sl anemia. Likely an age related anemia.Plan: Monitor over time. Edema in the Legs: She has varicose veins and legs are dependant without compression most of the day. She also has some OA. She is taking lasix 40 mg 2 dailyPlan: We will be getting cardiac stress test. Needs compression of legs. Vaginal Atrophy: Asking if at her age if she still needs to see a supervisor garment manufacturing. She has been having vaginal dryness with some itching; comes and goes. Says that she has tried everything OTC and nothing has worked; has not tried Premarin cream before.Plan: I would recommend she see Gynecology Kidney Cyst: CT abdomen showed a cyst or mass on the right kidney. She also has some diverticulitis. She had a prior diverticulitis flair for over week and was treated with antibiotics. She currently has no abdominal pain and no fever. Pain in the very low left lower quadrant.Plan: Monitor over time. Left lateral foot pain: Walking down street 3 days ago and L foot popped , very painful, limping. The pain is in the lateral metatarsal of the left foot. I recommended X-ray but she states she has an appointment with the gas line servicer and wants to see him for recommendations.Plan: See gas line servicer as patient desires. Enrolled in CARE program diet and exercise Has a back itch that just wont quit. this is secondary to dry skin and I have recommended moisturizing lotions.Plan: Recommend moisturizing lotions. The myocardial perfusion imaging is abnormal with a medium-sized defect during stress and a left ventricular ejection fraction of 66% she will need to have recommendations from cardiology regarding a cardiac catheterization- Doing heart cath on 12/19/2021 DR Cason. Normal for her, no change but increased her metoprolol 2 po bidShe added probiotic for her stomach issues . Constipation and gas When she went to ER one time , they said she is not processing food very well. Needed to take meds for food to go through her bowels.Plan: Colonoscopy 5 years ago showed polyps. Therefore, colonoscopy will be scheduled. The patient will also be started on Senokot-S 2 tablets by mouth daily. Uric acid normal 5.2 after treatment of Colchicine followed by Allopurinol.Plan: Colchicine and Allopurinol. Possible TIA: The patient remains on Eliquis. In in past she felt like she was having a TIA. She reported she felt like her mouth was not forming words right, words were ok. 3 episode in a 2 week period of time. Doing ok now. She had a one brief episode of dysarthria. She is doing well at this time but would like to have vascular studies on her neck and we have agreed. The ultrasound of the carotid shows no hemodynamically significant stenosis or significant interval change. Plan: monitor over time thus far the patient has not had any additional events. Stomach issues, constipation. Having a lot of gas flatulance. Gets bloated. Took tums and gas x , has not slept real good. She took dulcolax other day and felt like had better bm. She did stomach testing EGD 2019, and colon 2017.Plan: Use bowel regimen to avoid constipation. Right shoulder surgery: R shoulder pain, sees DR Spence, plate pulled loose on her R shoulder. He did testing to see why pulled loose. Fell 06/2018 placed plate and screws crushed her shoulder. When moves shoulder 10/10 pain. She will be having surgery on the arm because of the loosening of the plates.Plan: Cleared for Surgery at this time. Surgery as scheduled. 05/17/2021he is having gong graft done R shoulder and remove plate, 05/17/2021 at [facility] Dr Spence. Asking about her eliquis has not been instructed on when to stop. The answer is at least 48 hours prior. Stop Eliquis at least 48 hours prior to surgery.Handicapped Form: Asking about handicap sticker for her copd and arthritis.Plan: This has been filled out as a permanent disability. Increased swelling in her L leg, pulm did scan on legs for clots, assuming since has not heard all negative. I have recommended post her shoulder surgery she have the veins evaluated with the vascular team. She has been advised to wear compression. Left leg swells more than the right.Plan: Wear compression stockings. Resume Eliquis post surgery. Evaluate the legs with the vascular team. Thyroid nodules: She had abnormal thyroid nodule in the right thyroid and abnormal LN. Us done on her throat 08/27/2019 mo ago, us to be done November 17. Plan: Keep scheduled f/u. Osteopenia: Last Dexa improved 02/06/2020 to osteopenia, on the prior DEXA scan she had severe osteoporosis (02/24/2015)Last dexa scan 02/07/2023 showing osteopenia Prolia 09/13/2023 Will be due in February 2024 Plan: DEXA every 2 years. Continue the Prolia at 60 mg subcutaneous every 6 months with calcium and vitamin D3. CHL MPO 327 prior 297, previous 324, hs crp elevated at 7.0 up from 4.9 She has arthritis in her right shoulder, back, knees and hips. Plan: Monitor over time. Prior TORIBIO in the back. Hyperlipidemia: the cholesterol is 174 triglyceride 90, HDL 63, and LDL 93 Prior The total LDL particle is 1120 small LDL particle is normal at 295. the LDL size is 21.5.. The HDL size is 9.3 TG/HDL-c is 1.9. FpspkmzzncZ2k is 5.1 % indicating the average blood sugar is 100 Vitamin D level is 31.1. Plan: Has insulin resistance --recommended weight loss and limiting of sugars in the diet. COPD- New dx with PFT 05/25/2020 Moderately severe Obstructive Airway Disease. Seeing [facility]( was seeing [facility] prior). The pulmonary function tests show air trapping and no significant wheezing at this juncture. Plan: Albuterol hfa prn , yupelri, Brovana MAGALI- On C-pap nightly. Plan continue CPAP. Paroxysmal Atrial Fibrillation- the patient is anticoagulated with Eliquis for rate control. EKG today shows NSR Plan: Eliquis 5 mg bid, metoprolol ER 25 mg 2 am and 1 in the evening Benign Essential Hypertension-Furosemid e 40 mg bid, Potassium ER 20 meq bid, Verapamil 180 mg daily. GERD: Gastroesophageal reflux continues but the patient states that it is better controlled with the omeprazole. Plan: Omeprazole 40 mg bid Qqlrv-Bnlxtwgpq-D shoulder, back, neck, knees.Plan: Monitor over time. She wants a Medrol pack for the first of October as her arthritis pain is much better with this and [place] Insomnia: She is sleeping somewhat better with melatonin and Tylenol when necessary. Plan: Uses melatonin and Tylenol pm. H/o TIA: we're currently treating the paroxysmal A. fib with Eliquis.Plan: Continue anticoagulation. Isela Jeter MD [address] [facility],[address], [place], [address], LURDES Loera ALBERTOISELA ANNA 12/17/2023 13:35:09 03/24/2024 text/html States leg swell ing was increased, not sure if from her fall. She is taking 2 lasix 40 mg daily and this has helped some especially the L leg. Her proBNP is in the normal range. We have told her that the venous insufficiency is causing the swelling along with her excess weight and limited mobility. I offered a lymphedema referral to start a pump if she desires and she declined the offer.Plan: Compression, weight loss, walking more. Consider walking in a pool of chest high water. WHITE with chest pain: Was having some lt headiness when walking, says this has resolved. Not sure what the cause. She had CT angio chest done pulmonology 03/12/2023 showing no acute findingsShe uses her oxygen on occ. Still gets pressure in her chest when she walks. She states she feels this is related to her heart. She did well on the PFT today but has weight related Restriction. She needs a 41 pound fat loss.Plan: Schedule cardiac stress test. This was done CBC shows sl anemia. Likely an age related anemia.Plan: Monitor over time. Edema in the Legs: She has varicose veins and legs are dependant without compression most of the day. She also has some OA. She is taking lasix 40 mg 2 daily Pro bnp normalPlan: We will be getting cardiac stress test. Needs compression of legs. Vaginal Atrophy: Asking if at her age if she still needs to see a supervisor garment manufacturing. She has been having vaginal dryness with some itching; comes and goes. Says that she has tried everything OTC and nothing has worked; has not tried Premarin cream before.Plan: I would recommend she see Gynecology Kidney Cyst: CT abdomen showed a cyst or mass on the right kidney. She also has some diverticulitis. She had a prior diverticulitis flair for over week and was treated with antibiotics. She currently has no abdominal pain and no fever. Pain in the very low left lower quadrant.Plan: Monitor over time. Left lateral foot pain: Walking down street 3 days ago and L foot popped , very painful, limping. The pain is in the lateral metatarsal of the left foot. I recommended X-ray but she states she has an appointment with the gas line servicer and wants to see him for recommendations.Plan: See gas line servicer as patient desires. Enrolled in CARE program diet and exercise Has a back itch that just wont quit. this is secondary to dry skin and I have recommended moisturizing lotions.Plan: Recommend moisturizing lotions. The myocardial perfusion imaging is abnormal with a medium-sized defect during stress and a left ventricular ejection fraction of 66% she will need to have recommendations from cardiology regarding a cardiac catheterization- Doing heart cath on 12/19/2021 DR Cason. Normal for her, no change but increased her metoprolol 2 po bidShe added probiotic for her stomach issues . Constipation and gas When she went to ER one time , they said she is not processing food very well. Needed to take meds for food to go through her bowels.Plan: Colonoscopy 5 years ago showed polyps. Therefore, colonoscopy will be scheduled. The patient will also be started on Senokot-S 2 tablets by mouth daily. Uric acid normal 5.2 after treatment of Colchicine followed by Allopurinol.Plan: Colchicine and Allopurinol. Possible TIA: The patient remains on Eliquis. In in past she felt like she was having a TIA. She reported she felt like her mouth was not forming words right, words were ok. 3 episode in a 2 week period of time. Doing ok now. She had a one brief episode of dysarthria. She is doing well at this time but would like to have vascular studies on her neck and we have agreed. The ultrasound of the carotid shows no hemodynamically significant stenosis or significant interval change. Plan: monitor over time thus far the patient has not had any additional events. Stomach issues, constipation. Having a lot of gas flatulance. Gets bloated. Took tums and gas x , has not slept real good. She took dulcolax other day and felt like had better bm. She did stomach testing EGD 2019, and colon 2017.Plan: Use bowel regimen to avoid constipation. Right shoulder surgery: R shoulder pain, sees DR Spence, plate pulled loose on her R shoulder. He did testing to see why pulled loose. Fell 06/2018 placed plate and screws crushed her shoulder. When moves shoulder 10/10 pain. She will be having surgery on the arm because of the loosening of the plates.Plan: Cleared for Surgery at this time. Surgery as scheduled. 05/17/2021he is having gong graft done R shoulder and remove plate, 05/17/[address] [facility] Dr Spence. Asking about her eliquis has not been instructed on when to stop. The answer is at least 48 hours prior. Stop Eliquis at least 48 hours prior to surgery.Handicapped Form: Asking about handicap sticker for her copd and arthritis.Plan: This has been filled out as a permanent disability. Increased swelling in her L leg, pullori did scan on legs for clots, assuming since has not heard all negative. I have recommended post her shoulder surgery she have the veins evaluated with the vascular team. She has been advised to wear compression. Left leg swells more than the right.Plan: Wear compression stockings. Resume Eliquis post surgery. Evaluate the legs with the vascular team. Thyroid nodules: She had abnormal thyroid nodule in the right thyroid and abnormal LN. Us done on her throat 08/27/2019 mo ago, us to be done November 17. Plan: Keep scheduled f/u. Osteopenia: Last Dexa improved 02/06/2020 to osteopenia, on the prior DEXA scan she had severe osteoporosis (02/24/2015)Last dexa scan 02/07/2023 showing osteopenia Prolia 09/13/2023 Will be due in February 2024 Plan: DEXA every 2 years. Continue the Prolia at 60 mg subcutaneous every 6 months with calcium and vitamin D3. CHL MPO 327 prior 297, previous 324, hs crp elevated at 7.0 up from 4.9 She has arthritis in her right shoulder, back, knees and hips. Plan: Monitor over time. Prior TORIBIO in the back. Hyperlipidemia: the cholesterol is 179 triglyceride 106, HDL 60, and LDL 98 Prior The total LDL particle is 1120 small LDL particle is normal at 295. the LDL size is 21.5.. The HDL size is 9.3 TG/HDL-c is 1.9. FuvgxfkzhaD3c is 5.1 % indicating the average blood sugar is 100 Vitamin D level is 31.1. Plan: Has insulin resistance --recommended weight loss and limiting of sugars in the diet. COPD- New dx with PFT 05/25/2020 Moderately severe Obstructive Airway Disease. Seeing [facility]( was seeing [facility] prior). The pulmonary function tests show air trapping and no significant wheezing at this juncture. Plan: Albuterol hfa prn , yupelri, Brovana MAGALI- On C-pap nightly. Plan continue CPAP. Paroxysmal Atrial Fibrillation- the patient is anticoagulated with Eliquis for rate control. EKG today shows NSR Plan: Eliquis 5 mg bid, metoprolol ER 25 mg 2 am and 1 in the evening Benign Essential Hypertension-Furosemid e 40 mg bid, Potassium ER 20 meq bid, Verapamil 180 mg daily. GERD: Gastroesophageal reflux continues but the patient states that it is better controlled with the omeprazole. Plan: Omeprazole 40 mg bid Detfy-Jzsosjkch-J shoulder, back, neck, knees.Plan: Monitor over time. She wants a Medrol pack for the first of October as her arthritis pain is much better with this and [place]. Insomnia: She is sleeping somewhat better with melatonin and Tylenol when necessary. Plan: Uses melatonin and Tylenol pm. H/o TIA: we're currently treating the paroxysmal A. fib with Eliquis.Plan: Continue anticoagulation. Isela Jeter MD [address] [facility],[address], [place], [address], ISELA GOSS 03/24/2024 13:17:21 06/30/2024 text/html L knee steroid injection COG 2 weeks ago with therapy, started that this am. 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 She is taking 2 lasix 40 mg daily and this has helped some especially the L leg. Her proBNP is in the normal range. We have told her that the venous insufficiency is causing the swelling along with her excess weight and limited mobility. I offered a lymphedema referral to start a pump if she desires and she declined the offer.Plan: Compression, weight loss, walking more. Consider walking in a pool of chest high water. WHITE with chest pain: Was having some lt headiness when walking, says this has resolved. Not sure what the cause. She had CT angio chest done pulmonology 03/12/2023 showing no acute findingsShe uses her oxygen on occ. Still gets pressure in her chest when she walks. She states she feels this is related to her heart. She did well on the PFT but has weight related Restriction. She needs a 41 pound fat loss.Plan: Schedule cardiac stress test. This was done Pro BNp is normal CBC shows sl anemia. Likely an age related anemia.Plan: Monitor over time. Edema in the Legs: She has varicose veins and legs are dependant without compression most of the day. She also has some OA. She is taking lasix 40 mg 2 daily Pro bnp normalPlan: We will be getting cardiac stress test. Needs compression of legs. Vaginal Atrophy: Asking if at her age if she still needs to see a supervisor garment manufacturing. She has been having vaginal dryness with some itching; comes and goes. Says that she has tried everything OTC and nothing has worked; has not tried Premarin cream before.Plan: I would recommend she see Gynecology Kidney Cyst: CT abdomen showed a cyst or mass on the right kidney. She also has some diverticulitis. She had a prior diverticulitis flair for over week and was treated with antibiotics. She currently has no abdominal pain and no fever. Pain in the very low left lower quadrant.Plan: Monitor over time. Left lateral foot pain: Walking down street 3 days ago and L foot popped , very painful, limping. The pain is in the lateral metatarsal of the left foot. I recommended X-ray but she states she has an appointment with the gas line servicer and wants to see him for recommendations.Plan: See gas line servicer as patient desires. Enrolled in CARE program diet and exercise Has a back itch that just wont quit. this is secondary to dry skin and I have recommended moisturizing lotions.Plan: Recommend moisturizing lotions. The myocardial perfusion imaging is abnormal with a medium-sized defect during stress and a left ventricular ejection fraction of 66% she will need to have recommendations from cardiology regarding a cardiac catheterization- Doing heart cath on 12/19/2021 DR Cason. Normal for her, no change but increased her metoprolol 2 po bidShe added probiotic for her stomach issues . Constipation and gas When she went to ER one time , they said she is not processing food very well. Needed to take meds for food to go through her bowels.Plan: Colonoscopy 5 years ago showed polyps. Therefore, colonoscopy will be scheduled. The patient will also be started on Senokot-S 2 tablets by mouth daily. Uric acid normal 5.2 after treatment of Colchicine followed by Allopurinol.Plan: Colchicine and Allopurinol. Possible TIA: The patient remains on Eliquis. In in past she felt like she was having a TIA. She reported she felt like her mouth was not forming words right, words were ok. 3 episode in a 2 week period of time. Doing ok now. She had a one brief episode of dysarthria. She is doing well at this time but would like to have vascular studies on her neck and we have agreed. The ultrasound of the carotid shows no hemodynamically significant stenosis or significant interval change. Plan: monitor over time thus far the patient has not had any additional events. Stomach issues, constipation. Having a lot of gas flatulance. Gets bloated. Took tums and gas x , has not slept real good. She took dulcolax other day and felt like had better bm. She did stomach testing EGD 2019, and colon 2017.Plan: Use bowel regimen to avoid constipation. Right shoulder surgery: R shoulder pain, sees DR Spence, plate pulled loose on her R shoulder. He did testing to see why pulled loose. Fell 06/2018 placed plate and screws crushed her shoulder. When moves shoulder 10/10 pain. She will be having surgery on the arm because of the loosening of the plates.Plan: Cleared for Surgery at this time. Surgery as scheduled. 05/17/2021he is having gong graft done R shoulder and remove plate, 05/17/2021 at [facility] Dr Spence. Asking about her eliquis has not been instructed on when to stop. The answer is at least 48 hours prior. Stop Eliquis at least 48 hours prior to surgery.Handicapped Form: Asking about handicap sticker for her copd and arthritis.Plan: This has been filled out as a permanent disability. Increased swelling in her L leg, pulm did scan on legs for clots, assuming since has not heard all negative. I have recommended post her shoulder surgery she have the veins evaluated with the vascular team. She has been advised to wear compression. Left leg swells more than the right.Plan: Wear compression stockings. Resume Eliquis post surgery. Evaluate the legs with the vascular team. Thyroid nodules: She had abnormal thyroid nodule in the right thyroid and abnormal LN. Us done on her throat 08/27/2019 mo ago, us to be done November 17. Plan: Keep scheduled f/u. Osteopenia: Last Dexa improved 02/06/2020 to osteopenia, on the prior DEXA scan she had severe osteoporosis (02/24/2015)Last dexa scan 02/07/2023 showing osteopenia Prolia 09/13/2023 Will be due in February 2024 Plan: DEXA every 2 years. Continue the Prolia at 60 mg subcutaneous every 6 months with calcium and vitamin D3. CHL MPO 327 prior 297, previous 324, hs crp elevated at 7.0 up from 4.9 She has arthritis in her right shoulder, back, knees and hips. Plan: Monitor over time. Prior TORIBIO in the back. Hyperlipidemia: the cholesterol is 179 triglyceride 106, HDL 60, and LDL 98 Prior The total LDL particle is 1120 small LDL particle is normal at 295. the LDL size is 21.5.. The HDL size is 9.3 TG/HDL-c is 1.9. UixhquxypiE4r is 5.1 % indicating the average blood sugar is 100 Vitamin D level is 31.1. Plan: Has insulin resistance --recommended weight loss and limiting of sugars in the diet. COPD- New dx with PFT 05/25/2020 Moderately severe Obstructive Airway Disease. Seeing [facility]( was seeing [facility] prior). The pulmonary function tests show air trapping and no significant wheezing at this juncture. Plan: Albuterol hfa prn , yupelri, Brovana MAGALI- On C-pap nightly. Plan continue CPAP. Paroxysmal Atrial Fibrillation- the patient is anticoagulated with Eliquis for rate control. EKG today shows NSR Plan: Eliquis 5 mg bid, metoprolol ER 25 mg 2 am and 1 in the evening Benign Essential Hypertension-Furosemid e 40 mg bid, Potassium ER 20 meq bid, Verapamil 180 mg daily. GERD: Gastroesophageal reflux continues but the patient states that it is better controlled with the omeprazole. Plan: Omeprazole 40 mg bid Bbdhb-Pxgflifio-Y shoulder, back, neck, knees.Plan: Monitor over time. She wants a Medrol pack for the first of October as her arthritis pain is much better with this and [place]. Insomnia: She is sleeping somewhat better with melatonin and Tylenol when necessary. Plan: Uses melatonin and Tylenol pm. H/o TIA: we're currently treating the paroxysmal A. fib with Eliquis.Plan: Continue anticoagulation. Isela Jeter MD [address] [facility],[address], [place], [address], LURDES - ISELA JETER 06/30/2024 14:00:39 09/30/2024 text/html OA L knee bone on bone, injection did not do any good. She will be f/u with orthopedics and will consider joint replacement.Plan: f/u with orthopedics. The wegovy to expensive. Her wet suit gluer ordered Zepbound for her today.Plan: She will need to follow a diet with trying to lose weight. Says having terrible time with lower back pain, she is seeing [facility] spinal stenosis will get TORIBIO next week Sunday.Plan: TORIBIO planned with orthopedics. hs crp elevated at 4.7. This was likely related to her OA and the polyp with GI bleeding. EGD showing gastric hyperplastic polpy that was bleeding removed 09/24/2024 . No atypia or malignancy seen on biopsy.Plan: Monitor. Gastric Polyp: She was having L lower pain in back. stomach cramping , diarrhea. Upper EGD done showed epigastric mass, gastritis . Cancer labs negative CT of abdomen does not show the mass in stomach, stool cards positive for blood. Polyp was removed and it did not show cancer.Plan: f/u with GI and monitor to make sure polyp mass does not return. Colon 09/03/2024 polps were removed.Plan: Next Colonoscopy in 2027. L knee steroid injection COG 2 with therapy, started that this am. 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 She is taking 2 lasix 40 mg daily and this has helped some especially the L leg. Her proBNP is in the normal range. We have told her that the venous insufficiency is causing the swelling along with her excess weight and limited mobility. I offered a lymphedema referral to start a pump if she desires and she declined the offer.Plan: Compression, weight loss, walking more. Consider walking in a pool of chest high water. WHITE with chest pain: Was having some lt headiness when walking, says this has resolved. Not sure what the cause. She had CT angio chest done pulmonology 03/12/2023 showing no acute findingsShe uses her oxygen on occ. Still gets pressure in her chest when she walks. She states she feels this is related to her heart. She did well on the PFT but has weight related Restriction. She needs a 41 pound fat loss.Plan: Schedule cardiac stress test. This was done Pro BNp is normal CBC shows sl anemia. Likely an age related anemia.Plan: Monitor over time. Edema in the Legs: She has varicose veins and legs are dependant without compression most of the day. She also has some OA. She is taking lasix 40 mg 2 daily Pro bnp normalPlan: We will be getting cardiac stress test. Needs compression of legs. Vaginal Atrophy: Asking if at her age if she still needs to see a supervisor garment manufacturing. She has been having vaginal dryness with some itching; comes and goes. Says that she has tried everything OTC and nothing has worked; has not tried Premarin cream before.Plan: I would recommend she see Gynecology Kidney Cyst: CT abdomen showed a cyst or mass on the right kidney. She also has some diverticulitis. She had a prior diverticulitis flair for over week and was treated with antibiotics. She currently has no abdominal pain and no fever. Pain in the very low left lower quadrant.Plan: Monitor over time. Left lateral foot pain: Walking down street 3 days ago and L foot popped , very painful, limping. The pain is in the lateral metatarsal of the left foot. I recommended X-ray but she states she has an appointment with the gas line servicer and wants to see him for recommendations.Plan: See gas line servicer as patient desires. Enrolled in CARE program diet and exercise Has a back itch that just wont quit. this is secondary to dry skin and I have recommended moisturizing lotions.Plan: Recommend moisturizing lotions. The myocardial perfusion imaging is abnormal with a medium-sized defect during stress and a left ventricular ejection fraction of 66% she will need to have recommendations from cardiology regarding a cardiac catheterization- Doing heart cath on 12/19/2021 DR Spaedy. Normal for her, no change but increased her metoprolol 2 po bidShe added probiotic for her stomach issues . Constipation and gas When she went to ER one time , they said she is not processing food very well. Needed to take meds for food to go through her bowels.Plan: Colonoscopy 5 years ago showed polyps. Therefore, colonoscopy will be scheduled. The patient will also be started on Senokot-S 2 tablets by mouth daily. Uric acid normal 6.0 after treatment of Colchicine followed by Allopurinol.Plan: Colchicine and Allopurinol. Possible TIA: The patient remains on Eliquis. In in past she felt like she was having a TIA. She reported she felt like her mouth was not forming words right, words were ok. 3 episode in a 2 week period of time. Doing ok now. She had a one brief episode of dysarthria. She is doing well at this time but would like to have vascular studies on her neck and we have agreed. The ultrasound of the carotid shows no hemodynamically significant stenosis or significant interval change. Plan: monitor over time thus far the patient has not had any additional events. Stomach issues, constipation. Having a lot of gas flatulance. Gets bloated. Took tums and gas x , has not slept real good. She took dulcolax other day and felt like had better bm. She did stomach testing EGD 2019, and colon 2017.Plan: Use bowel regimen to avoid constipation. Right shoulder surgery: R shoulder pain, sees DR Spence, plate pulled loose on her R shoulder. He did testing to see why pulled loose. Fell 06/2018 placed plate and screws crushed her shoulder. When moves shoulder 10/10 pain. She will be having surgery on the arm because of the loosening of the plates.Plan: Cleared for Surgery at this time. Surgery as scheduled. 05/17/2021he is having gong graft done R shoulder and remove plate, 05/17/2021 at [facility] Dr Spence. Asking about her eliquis has not been instructed on when to stop. The answer is at least 48 hours prior. Stop Eliquis at least 48 hours prior to surgery.Handicapped Form: Asking about handicap sticker for her copd and arthritis.Plan: This has been filled out as a permanent disability. Increased swelling in her L leg, pulm did scan on legs for clots, assuming since has not heard all negative. I have recommended post her shoulder surgery she have the veins evaluated with the vascular team. She has been advised to wear compression. Left leg swells more than the right.Plan: Wear compression stockings. Resume Eliquis post surgery. Evaluate the legs with the vascular team. Thyroid nodules: She had abnormal thyroid nodule in the right thyroid and abnormal LN. Us done on her throat 08/27/2019 mo ago, us to be done November 17. Plan: Keep scheduled f/u. Osteopenia: Last Dexa improved 02/06/2020 to osteopenia, on the prior DEXA scan she had severe osteoporosis (02/24/2015)Last dexa scan 02/07/2023 showing osteopenia Prolia 09/13/2023 Will be due in February 2024 Plan: DEXA every 2 years. Continue the Prolia at 60 mg subcutaneous every 6 months with calcium and vitamin D3. CHL MPO 327 prior 297, previous 324, hs crp elevated at 7.0 up from 4.9 She has arthritis in her right shoulder, back, knees and hips. Plan: Monitor over time. Prior TORIBIO in the back. Hyperlipidemia: the cholesterol is 213 triglyceride 179, HDL 60, and LDL 124 The total LDL particle is 1586 small LDL particle is normal at 427. the LDL size is 21.4.. The HDL size is 9.1 TG/HDL-c is 3.0. JvlbrryusgL5v is 5.1 % indicating the average blood sugar is 100 Vitamin D level is 31.1. Plan: Has insulin resistance --recommended weight loss and limiting of sugars in the diet. COPD- New dx with PFT 05/25/2020 Moderately severe Obstructive Airway Disease. Seeing [facility]( was seeing [facility] prior). The pulmonary function tests show air trapping and no significant wheezing at this juncture. Plan: Albuterol hfa prn , yupelri, Brovana MAGALI- On C-pap nightly. Plan continue CPAP. Paroxysmal Atrial Fibrillation- the patient is anticoagulated with Eliquis for rate control. EKG today shows NSR Plan: Eliquis 5 mg bid, metoprolol ER 25 mg 2 am and 1 in the evening Benign Essential Hypertension-Furosemid e 40 mg bid, Potassium ER 20 meq bid, Verapamil 180 mg daily. GERD: Gastroesophageal reflux continues but the patient states that it is better controlled with the omeprazole. Plan: Omeprazole 40 mg bid Sfhkl-Ohbodrlhj-S shoulder, back, neck, knees.Plan: Monitor over time. She wants a Medrol pack for the first of October as her arthritis pain is much better with this and [place]. Insomnia: She is sleeping somewhat better with melatonin and Tylenol when necessary. Plan: Uses melatonin and Tylenol pm. H/o TIA: we're currently treating the paroxysmal A. fib with Eliquis.Plan: Continue anticoagulation. Isela Jeter MD [address] [facility] [address], [place], [address], ISELA GOSS 09/30/2024 16:23:26 OBGyn Episode No OBEpisode recorded.
--- OUTSIDE RECORDS SUMMARY | 2025-02-01 13:32 | XMS_ITS ---
Author Organization [facility] Network Address [id number] [place] [address] Care Team Providers Care Ict Trainer Name Role Phone Unavailable Unavailable Unavailable Problems This patient has no known problems. Allergies, Adverse Reactions, Alerts This patient has no known allergies or adverse reactions.
[2025-02-01 13:33] LABS: Anion Gap 6 mEq/L (7-15); Blood Urea Nitrogen* 26 mg/dL (7-30); Calcium* 9.6 mg/dL (8.4-10.6); Carbon Dioxide* 30 mmol/L (20-32); Estimated Glomerular Filt Rate 57 ml/min; Glucose* 87 mg/dL (60-115)
--- OUTSIDE RECORDS SUMMARY | 2025-02-01 13:33 | XMS_ITS | Data Portability ---
Author Organization [facility] , MAIN OFFICE Address [address] [place] [id number] Assessment No assessment recorded. Plan of Treatment Reminders Order Date Submit Date Provider Last Modified By Organization Details Last Modified Time Details Appointments LAB WORK 2024 07:00A M Not available Not available Not available FOLLOW UP 2024 10:00A M Dr. Isela Jeter M.D. Not available Not available Not available Lab None recorded. Referral None recorded. Procedures body compositi on analysis (PROC) 2024 025 [facility] Main Office, [address] [place] [address], [address], [address], 09/30/2024 16:19:48 gait test (PROC) 2024 025 [facility] Main Office, [address] [place] [address], [address], [address], 09/30/2024 16:20:31 body compositi on analysis (PROC) 2023 024 [facility] Main Office, [address] [place] [address], [address], [address], 09/13/2023 15:14:48 gait test (PROC) 2023 024 [facility] Main Office, [address] [place] [address], [address], [address], 09/13/2023 15:15:16 Surgeries None recorded. Imaging audiogram 2024 025 [facility] Office, [address] [facility], [address], [address], 10/01/2024 08:03:23 electroca rdiogram 2024 025 [facility] Office, [address] [facility], [address] [place] [address], [address], 10/01/2024 08:03:23 ankle brachial index 2024 025 [facility] Office, [address] [facility], [address], [address], 10/01/2024 08:03:23 audiogram 2023 024 [facility] Office, [address] [facility], [address], [address], 09/13/2023 15:35:07 electroca rdiogram 2023 024 [facility] Office, [address] [place] [address], [address], [address], 09/13/2023 15:35:07 ankle brachial index 2023 024 [facility] Office, [address] [facility], [address], [address], 09/13/2023 15:35:07 Medication Orders Wegovy 0.25 mg/0.5 mL subcutane ous pen injector 2023 024 [facility] [address] [place], [address], 09/30/2024 15:17:57 Medrol (Alberto) 4 mg tablets in a dose pack 2023 024 [facility] [address] [place], [address], 07/31/2024 11:10:00 Patient TargetsNo targets recorded. Patient Instructions Encounter Date Encounter Id Patient Instructions Last Modified By Organization Details Last Modified Time 09/13/2023 [id number] spirometry testing* lscoles Not available 09/13/2023 15:14:52 visual acuity* lscoles Not available 0 09/13/2023 15:14:55 extract mixer test* lscoles Not available 09/13 15:15:07 f/u in 3-4 month s with CBC, BMP, FLP,SGOT. Cardiac stress test. lscoles Not available 09/13/2023 15:16:02 12/17/2023 [id number] BMP,CBC, proBNP, FLP,SGOT lscoles Not available 12/17/2023 13:35:01 03/24/2024 [id number] Needs more weigh t loss. See recs above. f/u in 3 months with BMP, CBC, proBNP. lscoles Not available 03/24/2024 13:17:16 09/30/2024 [id number] spirometry testing* lscoles Not available 09/30/2024 16:19:52 visual acuity* lscoles Not available 0 09/30/2024 16:19:55 extract mixer test* lscoles Not available 09/30 16:20:09 FLP,SGOT, [...] Cardi ovasc ular Risk; 1.0-3 .0 mg/L Morrison ge Relat steve Cardi ovasc ular Risk; [...] n. 2003; 107:4 99-51 1. Not Available [facility] - Manual Order Only [address], [place], [address], 09/02/2023 17:45:06 08/29/19 24 08/29/2023 HEMOG LOBIN [...] in Diabe oc (ADA) . Not Available [facility] - Manual Order Only [address], [place], [address], 09/02/2023 17:45:06 08/29/19 24 08/29/2023 HEMOG LOBIN [...] Order Only [address], [place], [address], 09/02/2023 17:45:06 08/29/19 24 08/29/2023 LIPID PANEL W/ TG/HD L-C (ORDE RED WITH LIPOP ROTEI N, NMR) cholesterol, total 197 mg/dL <200 Not Available [facility] - Manual Order Only [address], [place], [address], 09/02/2023 17:45:07 08/29/19 24 08/29/2023 LIPID PANEL W/ TG/HD L-C (ORDE RED WITH LIPOP ROTEI N, NMR) HDL cholesterol 61 mg/dL >49 Not Available [facility] - Manual Order Only [address], [place], [address], 09/02/2023 17:45:07 08/29/19 24 08/29/2023 LIPID PANEL W/ TG/HD L-C (ORDE RED WITH LIPOP ROTEI N, NMR) triglyceride s 114 mg/dL <150 Not Available [facility] - Manual Order Only [address], [place], [address], 09/02/2023 17:45:07 08/29/19 24 08/29/2023 LIPID PANEL [...] a valid ated novel metho d aviva morales than the Fried lev equat ion in the estim ation of LDL-C . Shweta parr SS et al. NATALIE. 2013; 310(1 9): 2061- 2068 (http ://ed ucati onIndiPharm. Vivastream/f aq/FA Q164) Not Available [facility] - Manual Order Only [address], [place], [address], 09/02/2023 17:45:07 08/29/19 24 08/29/2023 LIPID PANEL W/ TG/HD L-C (ORDE RED WITH LIPOP ROTEI N, NMR) chol/HDL-C 3.2 calc <5.0 Not Available [facility] - Manual Order Only [address], [place], [address], 09/02/2023 17:45:07 08/29/19 24 08/29/2023 LIPID PANEL W/ TG/HD L-C (ORDE RED WITH LIPOP ROTEI N, NMR) non-HDL cholesterol 136 mg/dL _(solange c) <130 high For patie nts with diabe oc plus 1 major ASCVD risk facto r, treat ing to a non-H DL-C goal of <100 mg/dL (LDL- C of <70 mg/dL ) is zacheryi bouchra matson optio n. Not Available [facility] - Manual Order Only [address], [place], [address], 09/02/2023 17:45:07 08/29/19 24 08/29/2023 LIPID PANEL W/ TG/HD L-C (ORDE RED WITH LIPOP ROTEI N, NMR) TG/HDL-C 1.9 calc <2.0 Not Available [facility] - Manual Order Only [address], [place], [address], 09/02/2023 17:45:07 08/29/19 24 08/29/2023 MYELO PEROX [...] s [facility] at [facility]. It has not been clear ed or appro samuel by the U.S. Food and Drug Admin istra tion. This assay has been valid ated pursu ant to the CLIA regul ation s and is used for clini solange purpo ses. Not Available [facility] - Manual Order Only [address], [place], [address], 09/02/2023 17:45:07 08/29/19 24 08/29/2023 VITAM IN [...] infor bridget knight e refer to http: //[facility] catnanette n.que stdia gnost ics.c om/fa q/FAQ 199(T his link is being provi ded for infor dennis n/[facility] catio nal purpo ses only. )This test was devel oped and its elo tical perfo rmanc e kim cteri stics have been deter mined by [facility] Cardi ometa [facility] [facility] [employer] at [facility]. It has not been clear ed or appro samuel by the U.S. Food and Drug Admin istra tion. This assay has been valid ated pursu ant to the CLIA regul ation s and is used for clini solange purpo ses. Not Available [facility] - Manual Order Only [address] [facility] [address], [place], [address], 09/02/2023 17:45:08 08/29/19 24 08/29/2023 LIPOP ROTEI [...] s Cardi ometa [facility] [employer] at [facility]. It has not been clear ed or appro samuel by the U.S. Food and Drug Admin istra tion. This assay has been valid ated pursu ant to the CLIA regul ation s and is used for clini solange purpo ses. Not Available [facility] - Manual Order Only [address], [place], [address], 09/02/2023 17:45:08 08/29/1908/29/2023 LIPOP ROTEI N FRACT IONAT ION, NMR W/LIP ID PANEL small LDL-P 295 nmol/ L <467 Relat steve risk: Optim al <467; Moder ate 467-8 20; High >820 nmol/ L. Refer ence range is <1408 nmol/ L. Not Available [facility] - Manual Order Only [address], [place], [address], 09/02/2023 17:45:08 08/29/19 24 08/29/2023 LIPOP ROTEI N FRACT IONAT ION, NMR W/LIP ID PANEL LDL size 21.5 nm >20.5 Relat steve risk: Optim al >20.5 ; High <20.6 nm. Refer ence range is 20.0- 22.3 nm. Not Available [facility] - Manual Order Only [address], [place], [address], 09/02/2023 17:45:08 08/29/19 24 08/29/2023 LIPOP ROTEI N FRACT IONAT ION, NMR W/LIP ID PANEL HDL-P 39.3 umol/ L >32.8 Relat steve risk: Optim al >32.8 ; Moder ate 29.2- 32.8; High <29.2 umol/ L. Refer ence range is 21.1- 43.4 umol/ L. Not Available [facility] - Manual Order Only [address], [place], [address], 09/02/2023 17:45:08 01/03/08/29/2023 LIPOP ROTEI N FRACT IONAT ION, NMR W/LIP ID PANEL large HDL-P 8.8 umol/ L >7.2 Relat steve risk: Optim al >7.2; Moder ate 5.3-7 .2; High <5.3 umol/ L. Refer ence range is >3.5 umol/ L. Not Available [facility] - Manual Order Only [address], [place], [address], 09/02/2023 17:45:08 08/29/1908/29/2023 LIPOP ROTEI N FRACT IONAT ION, NMR W/LIP ID PANEL HDL size 9.3 nm >9.0 Relat steve risk: Optim al >9.0; Moder ate 8.7-9 .0; High <8.7 nm. Refer ence range is 8.3-1 0.5 nm. Not Available [facility] - Manual Order Only [address], [place], [address], 09/02/2023 17:45:08 08/29/1908/29/2023 LIPOP ROTEI N FRACT IONAT ION, NMR W/LIP ID PANEL large VLDL-P 3.0 nmol/ L <3.7 Relat steve risk: Optim al <3.7; Moder ate 3.7-6 .1; High >6.1 nmol/ L. Refer ence range is <16.0 nmol/ L. Not Available [facility] - Manual Order Only [address], [place], [address], 09/02/2023 17:45:08 08/29/1908/29/2023 LIPOP ROTEI N FRACT IONAT ION, NMR W/LIP ID PANEL VLDL size 48.3 nm <47.1 high Relat steve risk: Optim al <47.1 ; Moder ate 47.1- 49.0; High >49.0 nm. Refer ence range is 41.1- 61.7 nm. Not Available [facility] - Manual Order Only [address], [place], [address], 09/02/2023 17:45:08 08/29/19 24 08/29/2023 THYRO ID STIMU LATIN G HORMO NE (TSH) thyroid stimulating hormone (TSH) 2.32 mlu/L 0.40-4 .50 For addit ional infor bridget knight e refer to http: //[facility] bindu wyattQue stDia gnost ics.c om/fa q/FAQ 138 This test was perfo rmed using the Sieme ns TSH immun oassa y metho d. Value s obtai jon with previ ous assay metho ds canno t be used inter bush eably . Not Available [facility] - Manual Order Only [address], [place], [address], 09/02/2023 17:45:09 08/29/19 24 08/29/2023 URIC ACID uric acid 5.2 mg/dL 2.5-7. 3 Not Available [facility] - Manual Order Only [address], [place], [address], 09/02/2023 17:45:09 08/29/19 24 08/29/2023 AST aspartate amino transferase 30 units /L 10-45 Speci men was sligh tly hemol yzed, hemol ysis incre ases AST resul ts. Not Available [facility] [address] [place], [address], 08/29/2023 11:59:54 08/29/19 24 08/29/2023 BASIC METAB OLIC PANEL sodium 140 mmol/ L 135-14 5 Not Available [facility] [address] [place], [address], 08/29/2023 11:59:54 08/29/19 24 08/29/2023 BASIC METAB OLIC PANEL potassium 4.4 mmol/ L 3.3-4. 9 Speci men was sligh tly hemol yzed, hemol ysis incre ases potas sium resul ts. Not Available [facility] [address] [place], [address], 08/29/2023 11:59:54 08/29/19 24 08/29/2023 BASIC METAB OLIC PANEL chloride 105 mmol/ L 97-110 Not Available [facility] [address] [place], [address], 08/29/2023 11:59:54 08/29/19 24 08/29/2023 BASIC METAB OLIC PANEL carbon dioxide 21 mmol/ L 22-32 low Not Available [facility] [address] [place], [address], 08/29/2023 11:59:54 08/29/19 24 08/29/2023 BASIC METAB OLIC PANEL anion gap 14 mmol/ L 2-15 Not Available [facility] [address] [place], [address], 08/29/2023 11:59:54 08/29/19 24 08/29/2023 BASIC METAB OLIC PANEL blood urea nitrogen 16 mg/dL 8-25 Not Available [facility] [address] [place], [address], 08/29/2023 11:59:54 08/29/19 24 08/29/2023 BASIC METAB OLIC PANEL creatinine 1.00 mg/dL 0.60-1 .10 Not Available [facility] [address] [place], [address], 08/29/2023 11:59:54 08/29/19 24 08/29/2023 BASIC METAB [...] in child cynthia and those over 70. [facility] inter preti ve data was last revie wed 03/17 . Not Available [facility] [address] [place], [address], 08/29/2023 11:59:54 08/29/19 24 08/29/2023 BASIC METAB [...] Care 2017; 40 (Supp l. 1):S1 1. [facility] inter preti ve data was last jae ed 07/11 . Not Available [facility] [address] [place], [address], 08/29/2023 11:59:54 08/29/19 24 08/29/2023 BASIC METAB OLIC PANEL calcium 9.6 mg/dL 8.5-10 .3 Not Available [facility] [address] [place], [address], 08/29/2023 11:59:54 08/29/19 24 08/29/2023 CBC WITH DIFFE RENTI AL white blood count 4.1 K/cum m 3.8-9. 9 Not Available [address], [address], 08/29/2023 10:33:16 08/29/19 24 08/29/2023 CBC WITH DIFFE RENTI AL red blood count 3.65 M/cum m 3.90-5 .20 low Not Available [address], [address], 08/29/2023 10:33:16 08/29/19 24 08/29/2023 CBC WITH DIFFE RENTI AL hemoglobin 11.2 g/dL 11.9-1 5.5 low Not Available [address], [address], 08/29/2023 10:33:16 08/29/19 24 08/29/2023 CBC WITH DIFFE RENTI AL hematocrit 34.6 % 35.6-4 5.5 low Not Available [address], [address], 08/29/2023 10:33:16 08/29/19 24 08/29/2023 CBC WITH DIFFE RENTI AL mean corpuscular volume 94.8 fL 81.3-9 6.4 Not Available [address], [address], 08/29/2023 10:33:16 08/29/19 24 08/29/2023 CBC WITH DIFFE RENTI AL mean corpuscular hemoglobin 30.7 pg 27.1-3 3.3 Not Available [address], [address], 08/29/2023 10:33:16 08/29/19 24 08/29/2023 CBC WITH DIFFE RENTI AL mean corpuscular HGB conc 32.4 g/dL 32.3-3 5.7 Not Available [address], [address], 08/29/2023 10:33:16 08/29/19 24 08/29/2023 CBC WITH DIFFE RENTI AL RDW standard deviation 48.3 fL 35.7-4 8.1 high Not Available [address], [address], 08/29/2023 10:33:16 08/29/19 24 08/29/2023 CBC WITH DIFFE RENTI AL RDW coefficient of variation 13.9 % 11.1-1 4.9 Not Available [address], [address], 08/29/2023 10:33:16 08/29/19 24 08/29/2023 CBC WITH DIFFE RENTI AL platelet count 272 K/cum m 150-40 0 Not Available [address], [address], 08/29/2023 10:33:16 08/29/19 24 08/29/2023 CBC WITH DIFFE RENTI AL mean platelet volume 9.5 fL 9.1-12 .3 Not Available [address], [address], 08/29/2023 10:33:16 08/29/19 24 08/29/2023 CBC WITH DIFFE RENTI AL neutrophils percent auto 45.2 % Inter preti ve Data Perce nt cell count refer ence range s are not repor rafael, since disco rdanc e with absol [place] value s may lead to misin terpr etati on of CBC data. Curre nt Inter preti ve Data was last jae ed on 12/04 . Not Available [address], [address], 08/29/2023 10:33:16 08/29/19 24 08/29/2023 CBC WITH DIFFE RENTI AL immature grans percent auto 0.5 % Inter preti ve Data Perce nt cell count refer ence range s are not repor rafael, since disco rdanc e with absol [place] value s may lead to misin terpr etati on of CBC data. Curre nt Inter preti ve Data was last jae ed on 12/04 . Not Available [facility] [address] [place], [address], 08/29/2023 10:33:16 08/29/19 24 08/29/2023 CBC WITH DIFFE RENTI AL lymphocytes percent auto 38.1 % Inter preti ve Data Perce nt cell count refer ence range s are not repor rafael, since disco rdanc e with absol [place] value s may lead to misin terpr etati on of CBC data. Curre nt Inter preti ve Data was last jae ed on 12/04 . Not Available [address], [address], 08/29/2023 10:33:16 08/29/19 24 08/29/2023 CBC WITH DIFFE RENTI AL monocytes percent auto 13.8 % Inter preti ve Data Perce nt cell count refer ence range s are not repor rafael, since disco rdanc e with absol [place] value s may lead to misin terpr etati on of CBC data. Curre nt Inter preti ve Data was last jae ed on 12/04 . Not Available [facility] [address] [place], [address], 08/29/2023 10:33:16 08/29/19 24 08/29/2023 CBC WITH DIFFE RENTI AL eosinophils percent auto 1.7 % Inter preti ve Data Perce nt cell count refer ence range s are not repor rafael, since disco rdanc e with absol [place] value s may lead to misin terpr etati on of CBC data. Curre nt Inter preti ve Data was last jae ed on 12/04 . Not Available [facility] [address] [place], [address], 08/29/2023 10:33:16 08/29/19 24 08/29/2023 CBC WITH DIFFE RENTI AL basophils percent auto 0.7 % Inter preti ve Data Perce nt cell count refer ence range s are not repor rafael, since disco rdanc e with absol [place] value s may lead to misin terpr etati on of CBC data. Curre nt Inter preti ve Data was last jae ed on 12/04 . Not Available [address], [address], 08/29/2023 10:33:16 08/29/19 24 08/29/2023 CBC WITH DIFFE RENTI AL neutrophils absolute auto 1.8 K/cum m 1.7-6. 5 Not Available [address], [address], 08/29/2023 10:33:16 08/29/19 24 08/29/2023 CBC WITH DIFFE RENTI AL immature grans absolute auto 0.0 K/cum m 0.0-0. 1 Not Available [address], [address], 08/29/2023 10:33:16 08/29/19 24 08/29/2023 CBC WITH DIFFE RENTI AL lymphocytes absolute auto 1.6 K/cum m 0.8-3. 3 Not Available [address], [address], 08/29/2023 10:33:16 08/29/19 24 08/29/2023 CBC WITH DIFFE RENTI AL monocytes absolute auto 0.6 K/cum m 0.2-0. 8 Not Available [address], [address], 08/29/2023 10:33:16 08/29/19 24 08/29/2023 CBC WITH DIFFE RENTI AL eosinophils absolute auto 0.1 K/cum m 0.0-0. 5 Not Available [address], [address], 08/29/2023 10:33:16 08/29/19 24 08/29/2023 CBC WITH DIFFE RENTI AL basophils absolute auto 0.0 K/cum m 0.0-0. 1 Not Available [facility] [address] [facility], [place], [address], 08/29/2023 10:33:16 08/29/19 24 08/29/2023 CBC WITH DIFFE RENTI AL nucleated red blood cells 0.00 K/mm3 0.00-0 .01 Not Available [facility] [address] [facility], [place], [address], 08/29/2023 10:33:16 09/13/19 24 09/13/2023 body compo sitio n elo sis (PROC ) Weight 232.6 Not Available Main Offic e [address] [address], [place], [address], 09/13/2023 13:39:20 09/13/19 24 09/13/2023 body compo sitio n elo sis (PROC ) Skeletal Muscle Mass (SMM) 69.2 Not Available Main O ffice [address] [address], [place], [address], 09/13/2023 13:39:20 09/13/19 24 09/13/2023 body compo sitio n elo sis (PROC ) Body Fat Mass (BFM) 106 Not Available Main Office [address] [address], [place], [address], 09/13/2023 13:39:20 09/13/19 24 09/13/2023 body compo sitio n elo sis (PROC ) Body Mass Index (BMI) 42.5 Not Available Main Office [address] [address], [place], [address], 09/13/2023 13:39:20 09/13/19 24 09/13/2023 body compo sitio n elo sis (PROC ) Percent Body Fat (PBF) 45.6 Not Available Main O ffice [address] [address], [place], [address], 09/13/2023 13:39:20 09/13/19 24 09/13/2023 body compo sitio n elo sis (PROC ) Basal Metabolic Rate (BMR) 1610 Not Available Main Office [address] [address], [place], [address], 09/13/2023 13:39:20 09/13/19 24 09/13/2023 alphonso metry testi ng* FVC [L] - % 61 Not Available Main O ffice [address] [address], [place], [address], 09/13/2023 13:39:21 09/13/19 24 09/13/2023 alphonso metry testi ng* FEV1 [L] - % 66 Not Available Main Office [address] [address], [place], [address], 09/13/2023 13:39:21 09/13/19 24 09/13/2023 alphonso metry testi ng* FEV1/FVC Ratio- % 107 Not Available Main O ffice [address] [address], [place], [address], 09/13/2023 13:39:21 09/13/19 24 09/13/2023 extract mixer test* Unknown Analyte 44.3 Not Available Main O ffice [address] [address], [place], [address], 09/13/2023 13:39:22 09/13/19 24 09/13/2023 extract mixer test* Unknown Analyte 35 Not Available Main O ffice [address] [address], [place], [address], 09/13/2023 13:39:22 09/13/19 24 09/13/2023 extract mixer test* Unknown Analyte 43.8 Not Available Main O ffice [address] [address], [place], [address], 09/13/2023 13:39:22 09/13/19 24 09/13/2023 extract mixer test* Unknown Analyte 32.6 Not Available Main O ffice [address] [address], [place], [address], 09/13/2023 13:39:22 09/13/19 24 09/13/2023 extract mixer test* Unknown Analyte 38.3 Not Available Main O ffice [address] [address], [place], [address], 09/13/2023 13:39:22 09/13/19 24 09/13/2023 extract mixer test* Unknown Analyte 31.3 Not Available Main O ffice [address] [address], [place], [address], 09/13/2023 13:39:22 09/13/19 24 09/13/2023 gait test (PROC ) Time taken to walk 4M 4.05 Not Available Main Office [address] [address], [place], [address], 09/13/2023 13:39:22 09/13/19 24 09/13/2023 gait test (PROC ) Gait speed in meters p/s .98 Not Available Main O ffice [address] [address], [place], [address], 09/13/2023 13:39:22 09/13/19 24 09/13/2023 visua l acuit y* Status if not performed Peg howe ed/def erred Not Available Main Office [address] [address], [place], [address], 09/13/2023 13:39:21 09/13/19 24 09/13/2023 visua l acuit y* Opthamologis t Name DR Cassie bobo and DR Haile hernandes Not Available Main Office [address] [address], [place], [address], 09/13/2023 13:39:21 12/10/19 24 12/10/2023 LIPID PANEL [...] jae ed on 04/16 . Not Available [facility] [address] [place], [address], 12/10/2023 10:59:55 12/10/19 24 12/10/2023 LIPID PANEL [...] jae ed on 04/16 . Not Available [facility] [address] [facility], [place], [address], 12/10/2023 10:59:55 12/10/19 24 12/10/2023 LIPID PANEL [...] jae ed on 04/16 . Not Available [facility] [address] [place], [address], 12/10/2023 10:59:55 12/10/19 24 12/10/2023 LIPID PANEL [...] jae ed on 04/16 . Not Available [facility] [address] [place], [address], 12/10/2023 10:59:55 12/10/19 24 12/10/2023 LIPID PANEL chol HDL ratio 3 ratio Not Available [facility] [address] [place], [address], 12/10/2023 10:59:55 12/10/19 24 12/10/2023 LIPID PANEL non HDL cholesterol 111 Not Available [facility] [address] [place], [address], 12/10/2023 10:59:55 12/10/19 24 12/10/2023 AST aspartate amino transferase 19 units /L 10-45 Not Available [facility] [address] [place], [address], 12/10/2023 10:59:55 12/10/19 24 12/10/2023 BASIC METAB OLIC PANEL sodium 137 mmol/ L 135-14 5 Not Available [address] [place], [address], 12/10/2023 10:59:54 12/10/19 24 12/10/2023 BASIC METAB OLIC PANEL potassium 4.5 mmol/ L 3.3-4. 9 Not Available [address] [place], [address], 12/10/2023 10:59:54 12/10/19 24 12/10/2023 BASIC METAB OLIC PANEL chloride 102 mmol/ L 97-110 Not Available [address] [place], [address], 12/10/2023 10:59:54 12/10/19 24 12/10/2023 BASIC METAB OLIC PANEL carbon dioxide 26 mmol/ L 22-32 Not Available [facility] [address] [place], [address], 12/10/2023 10:59:54 12/10/19 24 12/10/2023 BASIC METAB OLIC PANEL anion gap 9 mmol/ L 2-15 Not Available [facility] [address] [place], [address], 12/10/2023 10:59:54 12/10/19 24 12/10/2023 BASIC METAB OLIC PANEL blood urea nitrogen 20 mg/dL 8-25 Not Available [address], [address], 12/10/2023 10:59:54 12/10/19 24 12/10/2023 BASIC METAB OLIC PANEL creatinine 0.89 mg/dL 0.60-1 .10 Not Available [facility] [address] [facility], [place], [address], 12/10/2023 10:59:54 12/10/19 24 12/10/2023 BASIC METAB [...] was last revie 03/17 . Not Available [facility] [address] [facility], [place], [address], 12/10/2023 10:59:54 12/10/19 24 12/10/2023 BASIC METAB [...] last jae ed 07/11 . Not Available [facility] [address] [place], [address], 12/10/2023 10:59:54 12/10/19 24 12/10/2023 BASIC METAB OLIC PANEL calcium 9.4 mg/dL 8.5-10 .3 Not Available [facility] [address] [place], [address], 12/10/2023 10:59:54 12/10/19 24 12/10/2023 CBC WITH DIFFE RENTI AL white blood count 5.3 K/cum m 3.8-9. 9 Not Available [facility] [address] [place], [address], 12/10/2023 10:22:47 12/10/19 24 12/10/2023 CBC WITH DIFFE RENTI AL red blood count 3.86 M/cum m 3.90-5 .20 low Not Available [facility] [address] [place], [address], 12/10/2023 10:22:47 12/10/19 24 12/10/2023 CBC WITH DIFFE RENTI AL hemoglobin 11.6 g/dL 11.9-1 5.5 low Not Available [facility] [address] [place], [address], 12/10/2023 10:22:47 12/10/19 24 12/10/2023 CBC WITH DIFFE RENTI AL hematocrit 36.3 % 35.6-4 5.5 Not Available [facility] [address] [place], [address], 12/10/2023 10:22:47 12/10/19 24 12/10/2023 CBC WITH DIFFE RENTI AL mean corpuscular volume 94.0 fL 81.3-9 6.4 Not Available [address], [address], 12/10/2023 10:22:47 12/10/19 24 12/10/2023 CBC WITH DIFFE RENTI AL mean corpuscular hemoglobin 30.1 pg 27.1-3 3.3 Not Available [address], [address], 12/10/2023 10:22:47 12/10/19 24 12/10/2023 CBC WITH DIFFE RENTI AL mean corpuscular HGB conc 32.0 g/dL 32.3-3 5.7 low Not Available [address], [address], 12/10/2023 10:22:47 12/10/19 24 12/10/2023 CBC WITH DIFFE RENTI AL RDW standard deviation 49.9 fL 35.7-4 8.1 high Not Available [address], [address], 12/10/2023 10:22:47 12/10/19 24 12/10/2023 CBC WITH DIFFE RENTI AL RDW coefficient of variation 14.6 % 11.1-1 4.9 Not Available [address], [address], 12/10/2023 10:22:47 12/10/19 24 12/10/2023 CBC WITH DIFFE RENTI AL platelet count 252 K/cum m 150-40 0 Not Available [address], [address], 12/10/2023 10:22:47 12/10/19 24 12/10/2023 CBC WITH DIFFE RENTI AL mean platelet volume 9.5 fL 9.1-12 .3 Not Available [facility] [address] [place], [address], 12/10/2023 10:22:47 12/10/19 24 12/10/2023 CBC WITH DIFFE RENTI AL neutrophils percent auto 48.3 % Inter preti ve Data Perce nt cell count refer ence range s are not repor rafael, since disco rdanc e with absol [place] value s may lead to misin terpr etati on of CBC data. Curre nt Inter preti ve Data was last jae ed on 12/04 . Not Available [facility] [address] [place], [address], 12/10/2023 10:22:47 12/10/19 24 12/10/2023 CBC WITH DIFFE RENTI AL immature grans percent auto 0.2 % Inter preti ve Data Perce nt cell count refer ence range s are not repor rafael, since disco rdanc e with absol [place] value s may lead to misin terpr etati on of CBC data. Curre nt Inter preti ve Data was last jae ed on 12/04 . Not Available [facility] [address] [place], [address], 12/10/2023 10:22:47 12/10/19 24 12/10/2023 CBC WITH DIFFE RENTI AL lymphocytes percent auto 38.9 % Inter preti ve Data Perce nt cell count refer ence range s are not repor rafael, since disco rdanc e with absol [place] value s may lead to misin terpr etati on of CBC data. Curre nt Inter preti ve Data was last jae ed on 12/04 . Not Available [facility] [address] [place], [address], 12/10/2023 10:22:47 12/10/19 24 12/10/2023 CBC WITH DIFFE RENTI AL monocytes percent auto 10.7 % Inter preti ve Data Perce nt cell count refer ence range s are not repor rafael, since disco rdanc e with absol [place] value s may lead to misin terpr etati on of CBC data. Curre nt Inter preti ve Data was last jae ed on 12/04 . Not Available [facility] [address] [place], [address], 12/10/2023 10:22:47 12/10/19 24 12/10/2023 CBC WITH DIFFE RENTI AL eosinophils percent auto 1.1 % Inter preti ve Data Perce nt cell count refer ence range s are not repor rafael, since disco rdanc e with absol [place] value s may lead to misin terpr etati on of CBC data. Curre nt Inter preti ve Data was last jae ed on 12/04 . Not Available [facility] [address] [place], [address], 12/10/2023 10:22:47 12/10/19 24 12/10/2023 CBC WITH DIFFE RENTI AL basophils percent auto 0.8 % Inter preti ve Data Perce nt cell count refer ence range s are not repor rafael, since disco rdanc e with absol [place] value s may lead to misin terpr etati on of CBC data. Curre nt Inter preti ve Data was last jae ed on 12/04 . Not Available [facility] [address] [place], [address], 12/10/2023 10:22:47 12/10/19 24 12/10/2023 CBC WITH DIFFE RENTI AL neutrophils absolute auto 2.5 K/cum m 1.7-6. 5 Not Available [facility] [address] [place], [address], 12/10/2023 10:22:47 12/10/19 24 12/10/2023 CBC WITH DIFFE RENTI AL immature grans absolute auto 0.0 K/cum m 0.0-0. 1 Not Available [address], [address], 12/10/2023 10:22:47 12/10/19 24 12/10/2023 CBC WITH DIFFE RENTI AL lymphocytes absolute auto 2.0 K/cum m 0.8-3. 3 Not Available [address], [address], 12/10/2023 10:22:47 12/10/19 24 12/10/2023 CBC WITH DIFFE RENTI AL monocytes absolute auto 0.6 K/cum m 0.2-0. 8 Not Available [address], [address], 12/10/2023 10:22:47 12/10/19 24 12/10/2023 CBC WITH DIFFE RENTI AL eosinophils absolute auto 0.1 K/cum m 0.0-0. 5 Not Available [address], [address], 12/10/2023 10:22:47 12/10/19 24 12/10/2023 CBC WITH DIFFE RENTI AL basophils absolute auto 0.0 K/cum m 0.0-0. 1 Not Available [address], [address], 12/10/2023 10:22:47 12/10/19 24 12/10/2023 CBC WITH DIFFE RENTI AL nucleated red blood cells 0.00 K/mm3 0.00-0 .01 Not Available [address], [address], 12/10/2023 10:22:47 03/17/20 24 03/17/2024 CBC WITH DIFFE RENTI AL white blood count 5.3 K/cum m 3.8-9. 9 Not Available [address], [address], 03/17/2024 10:54:33 03/17/20 24 03/17/2024 CBC WITH DIFFE RENTI AL red blood count 3.83 M/cum m 3.90-5 .20 low Not Available [address], [address], 03/17/2024 10:54:33 03/17/20 24 03/17/2024 CBC WITH DIFFE RENTI AL hemoglobin 12.1 g/dL 11.9-1 5.5 Not Available [facility] [address] [place], [address], 03/17/2024 10:54:33 03/17/20 24 03/17/2024 CBC WITH DIFFE RENTI AL hematocrit 36.4 % 35.6-4 5.5 Not Available [address], [address], 03/17/2024 10:54:33 03/17/20 24 03/17/2024 CBC WITH DIFFE RENTI AL mean corpuscular volume 95.0 fL 81.3-9 6.4 Not Available [facility] [address] [place], [address], 03/17/2024 10:54:33 03/17/20 24 03/17/2024 CBC WITH DIFFE RENTI AL mean corpuscular hemoglobin 31.6 pg 27.1-3 3.3 Not Available [facility] [address] [place], [address], 03/17/2024 10:54:33 03/17/20 24 03/17/2024 CBC WITH DIFFE RENTI AL mean corpuscular HGB conc 33.2 g/dL 32.3-3 5.7 Not Available [address], [address], 03/17/2024 10:54:33 03/17/20 24 03/17/2024 CBC WITH DIFFE RENTI AL RDW standard deviation 45.4 fL 35.7-4 8.1 Not Available [address], [address], 03/17/2024 10:54:33 03/17/20 24 03/17/2024 CBC WITH DIFFE RENTI AL RDW coefficient of variation 13.2 % 11.1-1 4.9 Not Available [address], [address], 03/17/2024 10:54:33 03/17/20 24 03/17/2024 CBC WITH DIFFE RENTI AL platelet count 253 K/cum m 150-40 0 Not Available [facility] [address] [place], [address], 03/17/2024 10:54:33 03/17/20 24 03/17/2024 CBC WITH DIFFE RENTI AL mean platelet volume 9.6 fL 9.1-12 .3 Not Available [facility] [address] [place], [address], 03/17/2024 10:54:33 03/17/20 24 03/17/2024 CBC WITH DIFFE RENTI AL neutrophils percent auto 51.2 % Inter preti ve Data Perce nt cell count refer ence range s are not repor rafael, since disco rdanc e with absol [place] value s may lead to misin terpr etati on of CBC data. Curre nt Inter preti ve Data was last jae ed on 12/04 . Not Available [facility] [address] [place], [address], 03/17/2024 10:54:33 03/17/20 24 03/17/2024 CBC WITH DIFFE RENTI AL immature grans percent auto 0.4 % Inter preti ve Data Perce nt cell count refer ence range s are not repor rafael, since disco rdanc e with absol [place] value s may lead to misin terpr etati on of CBC data. Curre nt Inter preti ve Data was last jae ed on 12/04 . Not Available [facility] [address] [place], [address], 03/17/2024 10:54:33 03/17/20 24 03/17/2024 CBC WITH DIFFE RENTI AL lymphocytes percent auto 34.6 % Inter preti ve Data Perce nt cell count refer ence range s are not repor rafael, since disco rdanc e with absol [place] value s may lead to misin terpr etati on of CBC data. Curre nt Inter preti ve Data was last jae ed on 12/04 . Not Available [facility] [address] [facility] [place], [address], 03/17/2024 10:54:33 03/17/20 24 03/17/2024 CBC WITH DIFFE RENTI AL monocytes percent auto 12.2 % Inter preti ve Data Perce nt cell count refer ence range s are not repor rafael, since disco rdanc e with absol [place] value s may lead to misin terpr etati on of CBC data. Curre nt Inter preti ve Data was last jae ed on 12/04 . Not Available [facility] [address] [facility] [place], [address], 03/17/2024 10:54:33 03/17/20 24 03/17/2024 CBC WITH DIFFE RENTI AL eosinophils percent auto 0.9 % Inter preti ve Data Perce nt cell count refer ence range s are not repor rafael, since disco rdanc e with absol [place] value s may lead to misin terpr etati on of CBC data. Curre nt Inter preti ve Data was last jae ed on 12/04 . Not Available [facility] [address] [place], [address], 03/17/2024 10:54:33 03/17/20 24 03/17/2024 CBC WITH DIFFE RENTI AL basophils percent auto 0.7 % Inter preti ve Data Perce nt cell count refer ence range s are not repor rafael, since disco rdanc e with absol [place] value s may lead to misin terpr etati on of CBC data. Curre nt Inter preti ve Data was last jae ed on 12/04 . Not Available [facility] [address] [place], [address], 03/17/2024 10:54:33 03/17/20 24 03/17/2024 CBC WITH DIFFE RENTI AL neutrophils absolute auto 2.7 K/cum m 1.7-6. 5 Not Available [facility] [address] [facility] [place], [address], 03/17/2024 10:54:33 03/17/20 24 03/17/2024 CBC WITH DIFFE RENTI AL immature grans absolute auto 0.0 K/cum m 0.0-0. 1 Not Available [facility] [address] [place], [address], 03/17/2024 10:54:33 03/17/20 24 03/17/2024 CBC WITH DIFFE RENTI AL lymphocytes absolute auto 1.9 K/cum m 0.8-3. 3 Not Available [facility] [address] [place], [address], 03/17/2024 10:54:33 03/17/20 24 03/17/2024 CBC WITH DIFFE RENTI AL monocytes absolute auto 0.7 K/cum m 0.2-0. 8 Not Available [facility] [address] [place], [address], 03/17/2024 10:54:33 03/17/20 24 03/17/2024 CBC WITH DIFFE RENTI AL eosinophils absolute auto 0.1 K/cum m 0.0-0. 5 Not Available [facility] [address] [place], [address], 03/17/2024 10:54:33 03/17/20 24 03/17/2024 CBC WITH DIFFE RENTI AL basophils absolute auto 0.0 K/cum m 0.0-0. 1 Not Available [facility] [address] [place], [address], 03/17/2024 10:54:33 03/17/20 24 03/17/2024 CBC WITH DIFFE RENTI AL nucleated red blood cells 0.00 K/mm3 0.00-0 .01 Not Available [address], [address], 03/17/2024 10:54:33 03/17/20 24 03/17/2024 LIPID PANEL [...] jae ed on 04/16 . Not Available [facility] [address] [place], [address], 03/17/2024 10:38:32 03/17/20 24 03/17/2024 LIPID PANEL [...] jae ed on 04/16 . Not Available [facility] [address] [facility], [place], [address], 03/17/2024 10:38:32 03/17/20 24 03/17/2024 LIPID PANEL [...] jae ed on 04/16 . Not Available [facility] [address] [place], [address], 03/17/2024 10:38:32 03/17/20 24 03/17/2024 LIPID PANEL [...] jae ed on 04/16 . Not Available [facility] [address] [place], [address], 03/17/2024 10:38:32 03/17/20 24 03/17/2024 LIPID PANEL chol HDL ratio 3 ratio Not Available [facility] [address] [place], [address], 03/17/2024 10:38:32 03/17/20 24 03/17/2024 LIPID PANEL non HDL cholesterol 119 Not Available [facility] [address] [place], [address], 03/17/2024 10:38:32 03/17/20 24 03/17/2024 NT- PRO [...] age. - Refer ences : 1. Eva ZACARAIS et.al . Eur Heart J. 2006: 27:33 0-337 . 2. Colby wallace RW, Ruba humphrey AM. J. AM Brando Cardi ol: Cardi ovasc Imag. 2009; 2: 216-2 25. Inter preti ve Data Last Jae ed Date: 2017. Not Available [facility] [address] [place], [address], 03/17/2024 10:38:32 03/17/20 24 03/17/2024 AST aspartate amino transferase 20 units /L 10-45 Not Available [facility] [address] [place], [address], 03/17/2024 10:38:32 03/17/20 24 03/17/2024 BASIC METAB OLIC PANEL sodium 138 mmol/ L 135-14 5 Not Available [facility] [address] [place], [address], 03/17/2024 10:38:31 03/17/20 24 03/17/2024 BASIC METAB OLIC PANEL potassium 4.0 mmol/ L 3.3-4. 9 Not Available [facility] [address] [place], [address], 03/17/2024 10:38:31 03/17/20 24 03/17/2024 BASIC METAB OLIC PANEL chloride 99 mmol/ L 97-110 Not Available [facility] [address] [place], [address], 03/17/2024 10:38:31 03/17/20 24 03/17/2024 BASIC METAB OLIC PANEL carbon dioxide 28 mmol/ L 22-32 Not Available [facility] [address] [place], [address], 03/17/2024 10:38:31 03/17/20 24 03/17/2024 BASIC METAB OLIC PANEL anion gap 11 mmol/ L 2-15 Not Available [facility] [address] [place], [address], 03/17/2024 10:38:31 03/17/20 24 03/17/2024 BASIC METAB OLIC PANEL blood urea nitrogen 16 mg/dL 8-25 Not Available [facility] [address] [place], [address], 03/17/2024 10:38:31 03/17/20 24 03/17/2024 BASIC METAB OLIC PANEL creatinine 0.89 mg/dL 0.60-1 .10 Not Available [facility] [address] [facility], [place], [address], 03/17/2024 10:38:31 03/17/20 24 03/17/2024 BASIC METAB [...] was last revie 03/17 . Not Available [facility] [address] [facility], [place], [address], 03/17/2024 10:38:31 03/17/20 24 03/17/2024 BASIC METAB [...] last jae ed 07/11 . Not Available [facility] [address] [place], [address], 03/17/2024 10:38:31 03/17/20 24 03/17/2024 BASIC METAB OLIC PANEL calcium 10.3 mg/dL 8.5-10 .3 Not Available [facility] [address] [place], [address], 03/17/2024 10:38:31 06/16/20 24 2024 CBC WITH DIFFE RENTI AL white blood count 5.3 K/cum m 3.8-9. 9 Not Available [facility] [address] [place], [address], 2024 11:00:59 06/16/20 24 2024 CBC WITH DIFFE RENTI AL red blood count 3.76 M/cum m 3.90-5 .20 low Not Available [facility] [address] [place], [address], 2024 11:00:59 06/16/20 24 2024 CBC WITH DIFFE RENTI AL hemoglobin 11.9 g/dL 11.9-1 5.5 Not Available [facility] [address] [place], [address], 2024 11:00:59 06/16/20 24 2024 CBC WITH DIFFE RENTI AL hematocrit 36.4 % 35.6-4 5.5 Not Available [address], [address], 2024 11:00:59 06/16/20 24 2024 CBC WITH DIFFE RENTI AL mean corpuscular volume 96.8 fL 81.3-9 6.4 high Not Available [address], [address], 2024 11:00:59 06/16/2006/16/2024 CBC WITH DIFFE RENTI AL mean corpuscular hemoglobin 31.6 pg 27.1-3 3.3 Not Available [address], [address], 2024 11:00:59 06/16/20 24 2024 CBC WITH DIFFE RENTI AL mean corpuscular HGB conc 32.7 g/dL 32.3-3 5.7 Not Available [address], [address], 2024 11:00:59 06/16/20 24 2024 CBC WITH DIFFE RENTI AL RDW standard deviation 46.0 fL 35.7-4 8.1 Not Available [address], [address], 2024 11:00:59 06/16/20 24 2024 CBC WITH DIFFE RENTI AL RDW coefficient of variation 12.9 % 11.1-1 4.9 Not Available [address], [address], 2024 11:00:59 06/16/20 24 2024 CBC WITH DIFFE RENTI AL platelet count 265 K/cum m 150-40 0 Not Available [address], [address], 2024 11:00:59 06/16/20 24 2024 CBC WITH DIFFE RENTI AL mean platelet volume 9.5 fL 9.1-12 .3 Not Available [facility] [address] [place], [address], 2024 11:00:59 06/16/20 24 2024 CBC WITH DIFFE RENTI AL neutrophils percent auto 49.5 % Inter preti ve Data Perce nt cell count refer ence range s are not repor rafael, since disco rdanc e with absol [place] value s may lead to misin terpr etati on of CBC data. Curre nt Inter preti ve Data was last jae ed on 12/04 . Not Available [facility] [address] [place], [address], 2024 11:00:59 06/16/20 24 2024 CBC WITH DIFFE RENTI AL immature grans percent auto 0.4 % Inter preti ve Data Perce nt cell count refer ence range s are not repor rafael, since disco rdanc e with absol [place] value s may lead to misin terpr etati on of CBC data. Curre nt Inter preti ve Data was last jae ed on 12/04 . Not Available [facility] [address] [place], [address], 2024 11:00:59 06/16/20 24 2024 CBC WITH DIFFE RENTI AL lymphocytes percent auto 34.2 % Inter preti ve Data Perce nt cell count refer ence range s are not repor rafael, since disco rdanc e with absol [place] value s may lead to misin terpr etati on of CBC data. Curre nt Inter preti ve Data was last jae ed on 12/04 . Not Available [facility] [address] [place], [address], 2024 11:00:59 06/16/20 24 2024 CBC WITH DIFFE RENTI AL monocytes percent auto 12.6 % Inter preti ve Data Perce nt cell count refer ence range s are not repor rafael, since disco rdanc e with absol [place] value s may lead to misin terpr etati on of CBC data. Curre nt Inter preti ve Data was last jae ed on 12/04 . Not Available [facility] [address] [place], [address], 2024 11:00:59 06/16/20 24 2024 CBC WITH DIFFE RENTI AL eosinophils percent auto 2.5 % Inter preti ve Data Perce nt cell count refer ence range s are not repor rafael, since disco rdanc e with absol [place] value s may lead to misin terpr etati on of CBC data. Curre nt Inter preti ve Data was last jae ed on 12/04 . Not Available [facility] [address] [place], [address], 2024 11:00:59 06/16/20 24 2024 CBC WITH DIFFE RENTI AL basophils percent auto 0.8 % Inter preti ve Data Perce nt cell count refer ence range s are not repor rafael, since disco rdanc e with absol [place] value s may lead to misin terpr etati on of CBC data. Curre nt Inter preti ve Data was last jae ed on 12/04 . Not Available [facility] [address] [place], [address], 2024 11:00:59 06/16/20 24 2024 CBC WITH DIFFE RENTI AL neutrophils absolute auto 2.6 K/cum m 1.7-6. 5 Not Available [facility] [address] [place], [address], 2024 11:00:59 06/16/20 24 2024 CBC WITH DIFFE RENTI AL immature grans absolute auto 0.0 K/cum m 0.0-0. 1 Not Available [facility] [address] [place], [address], 2024 11:00:59 06/16/20 24 2024 CBC WITH DIFFE RENTI AL lymphocytes absolute auto 1.8 K/cum m 0.8-3. 3 Not Available [facility] [address] [place], [address], 2024 11:00:59 06/16/20 24 2024 CBC WITH DIFFE RENTI AL monocytes absolute auto 0.7 K/cum m 0.2-0. 8 Not Available [facility] [address] [place], [address], 2024 11:00:59 06/16/20 24 2024 CBC WITH DIFFE RENTI AL eosinophils absolute auto 0.1 K/cum m 0.0-0. 5 Not Available [facility] [address] [place], [address], 2024 11:00:59 06/16/20 24 2024 CBC WITH DIFFE RENTI AL basophils absolute auto 0.0 K/cum m 0.0-0. 1 Not Available [facility] [address] [place], [address], 2024 11:00:59 06/16/20 24 2024 CBC WITH DIFFE RENTI AL nucleated red blood cells 0.00 K/mm3 0.00-0 .01 Not Available [facility] [address] [place], [address], 2024 11:00:59 06/16/20 24 2024 NT- PRO B-TYP E NATRI URETI C PEPTI DE nt pro B type natriuretic pept 214 pg/mL 0-450 Inter preti ve Comme nts: A. Dyspn ea in Acute Care Setti ng All Ages: < 300 pg/ml , acute heart failu re unlik lou. < 50 yrs: 300 - 450 pg/ml , [facility] inv[facility] tigat ion warra nted. > 450 pg/ml , acute heart failu re likel y. 50 - 74 yrs: 300 - 900 pg/ml , [facility] inves tigat ion warra nted. > [...] Last Jae ed Date: 2017. Not Available [facility] [address] [place], [address], 2024 10:53:52 06/16/2006/16/2024 AST aspartate amino transferase 24 units /L 10-45 Not Available [facility] [address] [place], [address], 2024 10:53:52 06/16/2006/16/2024 BASIC METAB OLIC PANEL sodium 139 mmol/ L 135-14 5 Not Available [facility] [address] [place], [address], 2024 10:53:51 06/16/2006/16/2024 BASIC METAB OLIC PANEL potassium 4.2 mmol/ L 3.3-4. 9 Not Available [facility] [address] [place], [address], 2024 10:53:51 06/16/2006/16/2024 BASIC METAB OLIC PANEL chloride 103 mmol/ L 97-110 Not Available [facility] [address] [place], [address], 2024 10:53:51 06/16/2006/16/2024 BASIC METAB OLIC PANEL carbon dioxide 24 mmol/ L 22-32 Not Available [facility] [address] [place], [address], 2024 10:53:51 06/16/2006/16/2024 BASIC METAB OLIC PANEL anion gap 12 mmol/ L 2-15 Not Available [facility] [address] [place], [address], 2024 10:53:51 06/16/2006/16/2024 BASIC METAB OLIC PANEL blood urea nitrogen 19 mg/dL 8-25 Not Available [facility] [address] [place], [address], 2024 10:53:51 06/16/2006/16/2024 BASIC METAB OLIC PANEL creatinine 1.03 mg/dL 0.60-1 .10 Not Available [facility] [address] [place], [address], 2024 10:53:51 06/16/20 24 2024 BASIC METAB OLIC PANEL glomerular filtration rate 69 >90 Inter preti ve Data Refer ence Inter jaya Lizebth l >/= 90 mL/mi n/1.7 3m2 Mildl [...] in child cynthia and those over 70. [facility] data was last revie wed 03/17 . Not Available [facility] [address] [facility], [place], [address], 2024 10:53:51 06/16/20 24 2024 BASIC METAB [...] Care 2017; 40 (Supp l. 1):S1 1. [facility] nt inter preti ve data was last jae ed 07/11 . Not Available [facility] [address] [place], [address], 2024 10:53:51 06/16/20 24 2024 BASIC METAB OLIC PANEL calcium 10.1 mg/dL 8.5-10 .3 Not Available [facility] [address] [place], [address], 2024 10:53:51 07/18/20 24 07/18/2024 INFLU MASON A, B, RSV, AND COVID -19 PCR influenza A PCR NEGATI VE negati ve Not Available [facility] [address] [place], [address], 07/18/2024 10:55:54 07/18/20 24 07/18/2024 INFLU MASON A, B, RSV, AND COVID -19 PCR influenza B PCR NEGATI VE negati ve Not Available [facility] [address] [place], [address], 07/18/2024 10:55:54 07/18/20 24 07/18/2024 INFLU MASON A, B, RSV, AND COVID -19 PCR RSV PCR NEGATI VE negati ve Not Available [facility] [address] [place], [address], 07/18/2024 10:55:54 07/18/20 24 07/18/2024 INFLU MASON A, B, RSV, AND COVID -19 PCR covid-19 PCR NEGATI VE negati ve Inter preti ve data: Test perfo rmed on the [facility] pert. This assay is a multi plex, [...] cteri stics have been verif ied by [facility] . Resul ts must be consi dered in the clini solange greer xt and a negat steve resul t does not rule out infec tion. Inter preti ve data last jae ed 2022. Not Available [facility] [address] [place], [address], 07/18/2024 10:55:54 08/12/20 24 08/12/2024 CARCI NOEMB RYONI C ANTIG EN carcinoembry onic antigen 1.7 NG/mL 0.2-3. 8 This assay is perfo rmed by the [facility]o d elect [facility] inesc ence. Resul ts obtai [facility]on by [facility] or metho d may not be bobby rable . Not Available [facility] [address] [place], [address], 08/12/2024 17:13:13 08/12/20 24 08/12/2024 MAGNE SIUM LEVEL magnesium 2.3 mg/dL 1.4-2. 5 Not Available [address], [address], 08/12/2024 11:57:37 08/12/20 24 08/12/2024 PHOSP HORUS LEVEL phosphorus 3.6 mg/dL 2.3-4. 5 Not Available [facility] [address] [place], [address], 08/12/2024 11:57:36 08/12/20 24 08/12/2024 BASIC METAB OLIC PANEL sodium 140 mmol/ L 135-14 5 Not Available [address], [address], 08/12/2024 11:57:36 08/12/20 24 08/12/2024 BASIC METAB OLIC PANEL potassium 3.9 mmol/ L 3.3-4. 9 Not Available [address], [address], 08/12/2024 11:57:36 08/12/20 24 08/12/2024 BASIC METAB OLIC PANEL chloride 102 mmol/ L 97-110 Not Available [address], [address], 08/12/2024 11:57:36 08/12/20 24 08/12/2024 BASIC METAB OLIC PANEL carbon dioxide 30 mmol/ L 22-32 Not Available [facility] [address] [place], [address], 08/12/2024 11:57:36 08/12/20 24 08/12/2024 BASIC METAB OLIC PANEL anion gap 8 mmol/ L 2-15 Not Available [facility] [address] [place], [address], 08/12/2024 11:57:36 08/12/20 24 08/12/2024 BASIC METAB OLIC PANEL blood urea nitrogen 19 mg/dL 8-25 Not Available [facility] [address] [place], [address], 08/12/2024 11:57:36 08/12/20 24 08/12/2024 BASIC METAB OLIC PANEL creatinine 1.05 mg/dL 0.60-1 .10 Not Available [facility] [address] [place], [address], 08/12/2024 11:57:36 08/12/20 24 08/12/2024 BASIC METAB [...] last revie wed 03/17 . Not Available [facility] [address] [place], [address], 08/12/2024 11:57:36 08/12/20 24 08/12/2024 BASIC METAB [...] Care 2017; 40 (Supp l. 1):S1 1. [facility] nt inter preti ve data was last jae ed 07/11 . Not Available [facility] [address] [facility], [place], [address], 08/12/2024 11:57:36 08/12/20 24 08/12/2024 BASIC METAB OLIC PANEL calcium 9.7 mg/dL 8.5-10 .3 Not Available [facility] [address] [place], [address], 08/12/2024 11:57:36 08/12/20 24 08/12/2024 ERYTH ROCYT E SEDIM ENTAT ION RATE erythrocyte sedimentatio n rate 53 mm/HR 1-30 high Not Available [facility] [address] [place], [address], 08/12/2024 11:17:15 08/12/20 24 08/12/2024 CBC WITH DIFFE RENTI AL white blood count 4.7 K/cum m 3.8-9. 9 Not Available [facility] [address] [place], [address], 08/12/2024 11:11:25 08/12/20 24 08/12/2024 CBC WITH DIFFE RENTI AL red blood count 3.45 M/cum m 3.90-5 .20 low Not Available [facility] [address] [place], [address], 08/12/2024 11:11:25 08/12/20 24 08/12/2024 CBC WITH DIFFE RENTI AL hemoglobin 10.6 g/dL 11.9-1 5.5 low Not Available [address], [address], 08/12/2024 11:11:25 08/12/20 24 08/12/2024 CBC WITH DIFFE RENTI AL hematocrit 33.7 % 35.6-4 5.5 low Not Available [facility] [address] [place], [address], 08/12/2024 11:11:25 08/12/20 24 08/12/2024 CBC WITH DIFFE RENTI AL mean corpuscular volume 97.7 fL 81.3-9 6.4 high Not Available [address], [address], 08/12/2024 11:11:25 08/12/20 24 08/12/2024 CBC WITH DIFFE RENTI AL mean corpuscular hemoglobin 30.7 pg 27.1-3 3.3 Not Available [address], [address], 08/12/2024 11:11:25 08/12/20 24 08/12/2024 CBC WITH DIFFE RENTI AL mean corpuscular HGB conc 31.5 g/dL 32.3-3 5.7 low Not Available [address], [address], 08/12/2024 11:11:25 08/12/20 24 08/12/2024 CBC WITH DIFFE RENTI AL RDW standard deviation 47.7 fL 35.7-4 8.1 Not Available [address], [address], 08/12/2024 11:11:25 08/12/20 24 08/12/2024 CBC WITH DIFFE RENTI AL RDW coefficient of variation 13.3 % 11.1-1 4.9 Not Available [address], [address], 08/12/2024 11:11:25 08/12/20 24 08/12/2024 CBC WITH DIFFE RENTI AL platelet count 304 K/cum m 150-40 0 Not Available [address], [address], 08/12/2024 11:11:25 08/12/20 24 08/12/2024 CBC WITH DIFFE RENTI AL mean platelet volume 9.3 fL 9.1-12 .3 Not Available [address], [address], 08/12/2024 11:11:25 08/12/20 24 08/12/2024 CBC WITH DIFFE RENTI AL neutrophils percent auto 43.5 % Inter preti ve Data Perce nt cell count refer ence range s are not repor rafael, since disco rdanc e with absol [place] value s may lead to misin terpr etati on of CBC data. Curre nt Inter preti ve Data was last jae ed on 12/04 . Not Available [address], [address], 08/12/2024 11:11:25 08/12/20 24 08/12/2024 CBC WITH DIFFE RENTI AL immature grans percent auto 0.4 % Inter preti ve Data Perce nt cell count refer ence range s are not repor rafael, since disco rdanc e with absol [place] value s may lead to misin terpr etati on of CBC data. Curre nt Inter preti ve Data was last jae ed on 12/04 . Not Available [facility] [address] [place], [address], 08/12/2024 11:11:25 08/12/20 24 08/12/2024 CBC WITH DIFFE RENTI AL lymphocytes percent auto 41.8 % Inter preti ve Data Perce nt cell count refer ence range s are not repor rafael, since disco rdanc e with absol [place] value s may lead to misin terpr etati on of CBC data. Curre nt Inter preti ve Data was last jae ed on 12/04 . Not Available [facility] [address] [place], [address], 08/12/2024 11:11:25 08/12/20 24 08/12/2024 CBC WITH DIFFE RENTI AL monocytes percent auto 11.7 % Inter preti ve Data Perce nt cell count refer ence range s are not repor rafael, since disco rdanc e with absol [place] value s may lead to misin terpr etati on of CBC data. Curre nt Inter preti ve Data was last jae ed on 12/04 . Not Available [facility] [address] [place], [address], 08/12/2024 11:11:25 08/12/20 24 08/12/2024 CBC WITH DIFFE RENTI AL eosinophils percent auto 1.7 % Inter preti ve Data Perce nt cell count refer ence range s are not repor rafael, since disco rdanc e with absol [place] value s may lead to misin terpr etati on of CBC data. Curre nt Inter preti ve Data was last jae ed on 12/04 . Not Available [facility] [address] [place], [address], 08/12/2024 11:11:25 08/12/20 24 08/12/2024 CBC WITH DIFFE RENTI AL basophils percent auto 0.9 % Inter preti ve Data Perce nt cell count refer ence range s are not repor rafael, since disco rdanc e with absol [place] value s may lead to misin terpr etati on of CBC data. Curre nt Inter preti ve Data was last jae ed on 12/04 . Not Available [address], [address], 08/12/2024 11:11:25 08/12/20 24 08/12/2024 CBC WITH DIFFE RENTI AL neutrophils absolute auto 2.0 K/cum m 1.7-6. 5 Not Available [address], [address], 08/12/2024 11:11:25 08/12/20 24 08/12/2024 CBC WITH DIFFE RENTI AL immature grans absolute auto 0.0 K/cum m 0.0-0. 1 Not Available [address], [address], 08/12/2024 11:11:25 08/12/20 24 08/12/2024 CBC WITH DIFFE RENTI AL lymphocytes absolute auto 2.0 K/cum m 0.8-3. 3 Not Available [address], [address], 08/12/2024 11:11:25 08/12/20 24 08/12/2024 CBC WITH DIFFE RENTI AL monocytes absolute auto 0.6 K/cum m 0.2-0. 8 Not Available [address], [address], 08/12/2024 11:11:25 08/12/20 24 08/12/2024 CBC WITH DIFFE RENTI AL eosinophils absolute auto 0.1 K/cum m 0.0-0. 5 Not Available [address], [address], 08/12/2024 11:11:25 08/12/20 24 08/12/2024 CBC WITH DIFFE RENTI AL basophils absolute auto 0.0 K/cum m 0.0-0. 1 Not Available [facility] [address] [place], [address], 08/12/2024 11:11:25 08/12/20 24 08/12/2024 CBC WITH DIFFE RENTI AL nucleated red blood cells 0.00 K/mm3 0.00-0 .01 Not Available [facility] [address] [place], [address], 08/12/2024 11:11:25 08/25/20 24 08/25/2024 CA 19-9 cancer antigen 19 9 6.0 units /mL 0.6-42 .0 This assay is perfo rmed by the [facility] immun oassa y metho d elect brown milum inesc ence. Resul ts obtai jon by [facility] er manuf actur er or metho d may not be bobby rablindsey . Not Available [facility] [address] [place], [address], 08/25/2024 11:30:44 08/25/20 24 08/25/2024 CALCI UM, TOTAL calcium 9.9 mg/dL 8.5-10 .3 Not Available [facility] [address] [place], [address], 08/25/2024 08:52:07 09/16/19 25 09/16/2024 HSCRP hs-CRP [...] Cardi ovasc ular Risk; 1.0-3 .0 mg/L Morrison ge Relat steve Cardi ovasc ular Risk; [...] hcare tatiana tapia from the [facility] rs for Disea se Contr ol and Preve ntion and the Ameri can Heart Assoc iatio n. Circu latio n 2002; 107(3 ): 499-5 11. Not Available [facility] - Manual Order Only [address], [place], [address], 09/24/2024 07:18:39 09/16/19 25 09/16/2024 HEMOG LOBIN [...] ards of Medic al Care in [place] co (ADA) . This test was perfo rmed on the [facility] ashutosh c503 platf orm. Effec tive 024, a bush e in test platf orms from the [facility] tect to the [facility] ashutosh c503 may have shift ed HbA1c resul ts bobby red to histo rical resul ts. Based on labor atory valid ation testi ng condu cted at [facility] , the Brown platf orm relat steve [...] is not recom bhaskar d. Not Available [facility] - Manual Order Only [address], [place], [address], 09/24/2024 07:18:40 09/16/19 25 09/16/2024 HEMOG LOBIN A1C estimated average glucose 100 mg/dL <117 Not Available [facility] - Manual Order Only [address], [place], [address], 09/24/2024 07:18:40 09/16/19 25 09/16/2024 LIPID PANEL W/ TG/HD L-C (ORDE RED WITH LIPOP ROTEI N, NMR) cholesterol, total 213 mg/dL <200 high Not Available [facility] - Manual Order Only [address], [place], [address], 09/24/2024 07:18:40 09/16/19 25 09/16/2024 LIPID PANEL W/ TG/HD L-C (ORDE RED WITH LIPOP ROTEI N, NMR) HDL cholesterol 60 mg/dL >49 Not Available [facility] - Manual Order Only [address], [place], [address], 09/24/2024 07:18:40 09/16/19 25 09/16/2024 LIPID PANEL W/ TG/HD L-C (ORDE RED WITH LIPOP ROTEI N, NMR) triglyceride s 179 mg/dL <150 high Not Available [facility] - Manual Order Only [address], [place], [address], 09/24/2024 07:18:40 09/16/19 25 09/16/2024 LIPID PANEL [...] 2061- 2068 (http ://ed ucati on.Ashtyn nguyen [employer]. com/f aq/FA Q164) Not Available [facility] - Manual Order Only [address], [place], [address], 09/24/2024 07:18:40 09/16/19 25 09/16/2024 LIPID PANEL W/ TG/HD L-C (ORDE RED WITH LIPOP ROTEI N, NMR) chol/HDL-C 3.6 calc <5.0 Not Available [facility] - Manual Order Only [address], [place], [address], 09/24/2024 07:18:40 09/16/19 25 09/16/2024 LIPID PANEL W/ TG/HD L-C (ORDE RED WITH LIPOP ROTEI N, NMR) non-HDL cholesterol 154 mg/dL _(solange c) <130 high For patie nts with diabe co plus 1 major ASCVD risk facto r, treat ing to a non-H DL-C goal of <100 mg/dL (LDL- C of <70 mg/dL ) is consi dered a thera peuti c optio n. Not Available [facility] - Manual Order Only [address], [place], [address], 09/24/2024 07:18:40 09/16/19 25 09/16/2024 LIPID PANEL W/ TG/HD L-C (ORDE RED WITH LIPOP ROTEI N, NMR) TG/HDL-C 3.0 calc <2.0 high Not Available [facility] - Manual Order Only [address], [place], [address], 09/24/2024 07:18:40 09/16/19 25 09/16/2024 MYELO PEROX [...] bolblanca Pablo r of Michael velasquez at [facility]. It has not been clear ed or appro samuel by the U.S. Food and Drug Admin istra tion. This assay has been valid ated pursu ant to the CLIA regul ation s and is used for clini solange purpo ses. Not Available [facility] - Manual Order Only [address], [place], [address], 09/24/2024 07:18:41 09/16/19 25 09/16/2024 VITAM IN [...] infor bridget knight e refer to http: //[facility] bindu parr.que stdia gnost ics.c om/fa q/FAQ 199(T his link is being provi ded for infor dennis parr/silvia catnanette nal purpo ses only. )This test was devel oped and its elo tical perfo rmanc e kim cteri stics have been deter mined by [facility] of [employer] at [facility]. It has not been clear ed or appro samuel by the U.S. Food and Drug Admin istra tion. This assay has been valid ated pursu ant to the CLIA regul ation s and is used for clini solange purpo ses. Not Available [facility] - Manual Order Only [address], [place], [address], 09/24/2024 07:18:41 09/16/1909/16/2024 LIPOP ROTEI N FRACT IONAT ION, NMR W/LIP ID PANEL LDL-P 1586 nmol/ L <935 high Relat steve risk: Optim al <935; Moder ate 935-1 816; High >1816 nmol/ L. Refer ence range is 592-2 404 nmol/ L. This test was devel oped and its elo tical perfo rmanc e kim cteri stics have been deter mined by [facility] [employer] at [facility]. It has not been clear ed or appro samuel by the U.S. Food and Drug Admin istra tion. This assay has been valid ated pursu ant to the CLIA regul ation s and is used for clini solange purpo ses. Not Available [facility] - Manual Order Only [address], [place], [address], 09/24/2024 07:18:41 09/16/1909/16/2024 LIPOP ROTEI N FRACT IONAT ION, NMR W/LIP ID PANEL small LDL-P 427 nmol/ L <467 Relat steve risk: Optim al <467; Moder ate 467-8 20; High >820 nmol/ L. Refer ence range is <1408 nmol/ L. Not Available [facility] - Manual Order Only [address], [place], [address], 09/24/2024 07:18:41 09/16/19 25 09/16/2024 LIPOP ROTEI N FRACT IONAT ION, NMR W/LIP ID PANEL LDL size 21.4 nm >20.5 Relat steve risk: Optim al >20.5 ; High <20.6 nm. Refer ence range is 20.0- 22.3 nm. Not Available [facility] - Manual Order Only [address], [place], [address], 09/24/2024 07:18:41 09/16/19 25 09/16/2024 LIPOP ROTEI N FRACT IONAT ION, NMR W/LIP ID PANEL HDL-P 44.4 umol/ L >32.8 Relat steve risk: Optim al >32.8 ; Moder ate 29.2- 32.8; High <29.2 umol/ L. Refer ence range is 21.1- 43.4 umol/ L. Not Available [facility] - Manual Order Only [address], [place], [address], 09/24/2024 07:18:41 09/16/1909/16/2024 LIPOP ROTEI N FRACT IONAT ION, NMR W/LIP ID PANEL large HDL-P 8.1 umol/ L >7.2 Relat steve risk: Optim al >7.2; Moder ate 5.3-7 .2; High <5.3 umol/ L. Refer ence range is >3.5 umol/ L. Not Available [facility] - Manual Order Only [address], [place], [address], 09/24/2024 07:18:41 09/16/1909/16/2024 LIPOP ROTEI N FRACT IONAT ION, NMR W/LIP ID PANEL HDL size 9.1 nm >9.0 Relat steve risk: Optim al >9.0; Moder ate 8.7-9 .0; High <8.7 nm. Refer ence range is 8.3-1 0.5 nm. Not Available [facility] - Manual Order Only [address], [place], [address], 09/24/2024 07:18:41 09/16/1909/16/2024 LIPOP ROTEI N FRACT IONAT ION, NMR W/LIP ID PANEL large VLDL-P 8.1 nmol/ L <3.7 high Relat steve risk: Optim al <3.7; Moder ate 3.7-6 .1; High >6.1 nmol/ L. Refer ence range is <16.0 nmol/ L. Not Available [facility] - Manual Order Only [address], [place], [address], 09/24/2024 07:18:41 09/16/19 25 09/16/2024 LIPOP ROTEI N FRACT IONAT ION, NMR W/LIP ID PANEL VLDL size 52.3 nm <47.1 high Relat steve risk: Optim al <47.1 ; Moder ate 47.1- 49.0; High >49.0 nm. Refer ence range is 41.1- 61.7 nm. Not Available [facility] - Manual Order Only [address], [place], [address], 09/24/2024 07:18:41 09/16/19 25 09/16/2024 THYRO ID STIMU LATIN G HORMO NE (TSH) thyroid stimulating hormone (TSH) 3.37 mlu/L 0.40-4 .50 Not Available [facility] - Manual Order Only [address], [place], [address], 09/24/2024 07:18:42 09/16/19 25 09/16/2024 URIC ACID uric acid 6.0 mg/dL 2.5-7. 3 Not Available [facility] - Manual Order Only [address], [place], [address], 09/24/2024 07:18:42 09/16/19 25 09/16/2024 AST aspartate amino transferase 26 units /L 10-45 Not Available [facility] [address] [place], [address], 09/16/2024 16:35:20 09/16/19 25 09/16/2024 BASIC METAB OLIC PANEL sodium 137 mmol/ L 135-14 5 Not Available [facility] [address] [place], [address], 09/16/2024 16:35:19 09/16/19 25 09/16/2024 BASIC METAB OLIC PANEL potassium 4.2 mmol/ L 3.3-4. 9 Not Available [facility] [address] [place], [address], 09/16/2024 16:35:19 09/16/19 25 09/16/2024 BASIC METAB OLIC PANEL chloride 98 mmol/ L 97-110 Not Available [facility] [address] [place], [address], 09/16/2024 16:35:19 09/16/19 25 09/16/2024 BASIC METAB OLIC PANEL carbon dioxide 26 mmol/ L 22-32 Not Available [facility] [address] [place], [address], 09/16/2024 16:35:19 09/16/19 25 09/16/2024 BASIC METAB OLIC PANEL anion gap 13 mmol/ L 2-15 Not Available [facility] [address] [place], [address], 09/16/2024 16:35:19 09/16/19 25 09/16/2024 BASIC METAB OLIC PANEL blood urea nitrogen 24 mg/dL 8-25 Not Available [facility] [address] [place], [address], 09/16/2024 16:35:19 09/16/19 25 09/16/2024 BASIC METAB OLIC PANEL creatinine 1.07 mg/dL 0.60-1 .10 Not Available [facility] [address] [place], [address], 09/16/2024 16:35:19 09/16/19 25 09/16/2024 BASIC METAB [...] was last revie 03/17 . Not Available [facility] [address], [place], [address], 09/16/2024 16:35:19 09/16/19 25 09/16/2024 BASIC METAB [...] last jae ed 07/11 . Not Available [facility] [address] [place], [address], 09/16/2024 16:35:19 09/16/19 25 09/16/2024 BASIC METAB OLIC PANEL calcium 10.2 mg/dL 8.5-10 .3 Not Available [facility] [address] [place], [address], 09/16/2024 16:35:19 09/16/19 25 09/16/2024 CBC WITH DIFFE RENTI AL white blood count 6.8 K/cum m 3.8-9. 9 Not Available [facility] [address] [place], [address], 09/16/2024 13:38:56 09/16/19 25 09/16/2024 CBC WITH DIFFE RENTI AL red blood count 3.80 M/cum m 3.90-5 .20 low Not Available [facility] [address] [place], [place], [facility], 09/16/2024 13:38:56 09/16/19 25 09/16/2024 CBC WITH DIFFE RENTI AL hemoglobin 11.6 g/dL 11.9-1 5.5 low Not Available [facility] [address] [place], [address], 09/16/2024 13:38:56 09/16/19 25 09/16/2024 CBC WITH DIFFE RENTI AL hematocrit 36.5 % 35.6-4 5.5 Not Available [address], [facility], 09/16/2024 13:38:56 09/16/19 25 09/16/2024 CBC WITH DIFFE RENTI AL mean corpuscular volume 96.1 fL 81.3-9 6.4 Not Available [facility] [address] [place], [address], 09/16/2024 13:38:56 09/16/19 25 09/16/2024 CBC WITH DIFFE RENTI AL mean corpuscular hemoglobin 30.5 pg 27.1-3 3.3 Not Available [address], [address], 09/16/2024 13:38:56 09/16/19 25 09/16/2024 CBC WITH DIFFE RENTI AL mean corpuscular HGB conc 31.8 g/dL 32.3-3 5.7 low Not Available [address], [address], 09/16/2024 13:38:56 09/16/19 25 09/16/2024 CBC WITH DIFFE RENTI AL RDW standard deviation 45.5 fL 35.7-4 8.1 Not Available [address], [address], 09/16/2024 13:38:56 09/16/19 25 09/16/2024 CBC WITH DIFFE RENTI AL RDW coefficient of variation 12.9 % 11.1-1 4.9 Not Available [address], [address], 09/16/2024 13:38:56 09/16/19 25 09/16/2024 CBC WITH DIFFE RENTI AL platelet count 282 K/cum m 150-40 0 Not Available [address], [address], 09/16/2024 13:38:56 09/16/19 25 09/16/2024 CBC WITH DIFFE RENTI AL mean platelet volume 9.5 fL 9.1-12 .3 Not Available [address], [address], 09/16/2024 13:38:56 09/16/19 25 09/16/2024 CBC WITH DIFFE RENTI AL neutrophils percent auto 67.2 % Inter preti ve Data Perce nt cell count refer ence range s are not repor rafael, since disco rdanc e with absol [place] value s may lead to misin terpr etati on of CBC data. Curre nt Inter preti ve Data was last jae ed on 12/04 . Not Available [facility] [address] [place], [address], 09/16/2024 13:38:56 09/16/1909/16/2024 CBC WITH DIFFE RENTI AL immature grans percent auto 0.0 % Inter preti ve Data Perce nt cell count refer ence range s are not repor rafael, since disco rdanc e with absol [place] value s may lead to misin terpr etati on of CBC data. Curre nt Inter preti ve Data was last jae ed on 12/04 . Not Available [address], [address], 09/16/2024 13:38:56 09/16/1909/16/2024 CBC WITH DIFFE RENTI AL lymphocytes percent auto 23.6 % Inter preti ve Data Perce nt cell count refer ence range s are not repor rafael, since disco rdanc e with absol [place] value s may lead to misin terpr etati on of CBC data. Curre nt Inter preti ve Data was last jae ed on 12/04 . Not Available [facility] [address] [place], [address], 09/16/2024 13:38:56 09/16/1909/16/2024 CBC WITH DIFFE RENTI AL monocytes percent auto 8.1 % Inter preti ve Data Perce nt cell count refer ence range s are not repor rafael, since disco rdanc e with absol [place] value s may lead to misin terpr etati on of CBC data. Curre nt Inter preti ve Data was last jae ed on 12/04 . Not Available [facility] [address] [place], [address], 09/16/2024 13:38:56 09/16/19 25 09/16/2024 CBC WITH DIFFE RENTI AL eosinophils percent auto 0.4 % Inter preti ve Data Perce nt cell count refer ence range s are not repor rafael, since disco rdanc e with absol [place] value s may lead to misin terpr etati on of CBC data. Curre nt Inter preti ve Data was last jae ed on 12/04 . Not Available [address], [address], 09/16/2024 13:38:56 09/16/19 25 09/16/2024 CBC WITH DIFFE RENTI AL basophils percent auto 0.7 % Inter preti ve Data Perce nt cell count refer ence range s are not repor rafael, since disco rdanc e with absol [place] value s may lead to misin terpr etati on of CBC data. Curre nt Inter preti ve Data was last jae ed on 12/04 . Not Available [address], [address], 09/16/2024 13:38:56 09/16/19 25 09/16/2024 CBC WITH DIFFE RENTI AL neutrophils absolute auto 4.6 K/cum m 1.7-6. 5 Not Available [address], [address], 09/16/2024 13:38:56 09/16/19 25 09/16/2024 CBC WITH DIFFE RENTI AL immature grans absolute auto 0.0 K/cum m 0.0-0. 1 Not Available [address], [address], 09/16/2024 13:38:56 09/16/19 25 09/16/2024 CBC WITH DIFFE RENTI AL lymphocytes absolute auto 1.6 K/cum m 0.8-3. 3 Not Available [address], [address], 09/16/2024 13:38:56 09/16/19 25 09/16/2024 CBC WITH DIFFE RENTI AL monocytes absolute auto 0.6 K/cum m 0.2-0. 8 Not Available [address] [place], [address], 09/16/2024 13:38:56 09/16/19 25 09/16/2024 CBC WITH DIFFE RENTI AL eosinophils absolute auto 0.0 K/cum m 0.0-0. 5 Not Available [address], [address], 09/16/2024 13:38:56 09/16/19 25 09/16/2024 CBC WITH DIFFE RENTI AL basophils absolute auto 0.1 K/cum m 0.0-0. 1 Not Available [address] [address] [place], [address], 09/16/2024 13:38:56 09/16/19 25 09/16/2024 CBC WITH DIFFE RENTI AL nucleated red blood cells 0.00 K/mm3 0.00-0 .01 Not Available [address], [address], 09/16/2024 13:38:56 09/30/19 25 09/30/2024 gait test (PROC ) Time taken to walk 4M 6.27 Not Available Main Office [address], [address], 09/08/2024 16:14:42 09/30/19 25 09/30/2024 gait test (PROC ) Gait speed in meters p/s .63 Not Available Main O ffice [address], [address], 09/08/2024 16:14:42 09/30/19 25 09/30/2024 body compo sitio n elo sis (PROC ) Weight 236.1 Not Available Main Offic e [address], [address], 09/08/2024 16:14:41 09/30/19 25 09/30/2024 body compo sitio n elo sis (PROC ) Skeletal Muscle Mass (SMM) 67.7 Not Available Main O ffice [address] [address], [place], [address], 09/08/2024 16:14:41 09/30/19 25 09/30/2024 body compo sitio n elo sis (PROC ) Body Fat Mass (BFM) 111.8 Not Available Main Office [address] [address], [place], [address], 09/08/2024 16:14:41 09/30/19 25 09/30/2024 body compo sitio n elo sis (PROC ) Body Mass Index (BMI) 43.2 Not Available Main Office [address] [address], [place], [address], 09/08/2024 16:14:41 09/30/19 25 09/30/2024 body compo sitio n elo sis (PROC ) Percent Body Fat (PBF) 47.4 Not Available Main O ffice [address] [address], [place], [address], 09/08/2024 16:14:41 09/30/19 25 09/30/2024 body compo sitio n elo sis (PROC ) Basal Metabolic Rate (BMR) 1587 Not Available Main Office [address] [place] [address], [place], [address], 09/08/2024 16:14:41 09/30/19 25 09/30/2024 alphonso metry testi ng* FVC [L] - % 68 Not Available Main O ffice [address] [address], [place], [address], 09/08/2024 16:14:41 09/30/19 25 09/30/2024 alphonso metry testi ng* FEV1 [L] - % 71 Not Available Main Office [address] [address], [place], [address], 09/08/2024 16:14:41 09/30/19 25 09/30/2024 alphonso metry testi ng* FEV1/FVC Ratio- % 104 Not Available Main O ffice [address] [address], [place], [address], 09/08/2024 16:14:41 09/30/19 25 09/30/2024 extract mixer test* Unknown Analyte 40 Not Available Main O ffice [address] [address], [place], [address], 09/08/2024 16:14:42 09/30/19 25 09/30/2024 extract mixer test* Unknown Analyte 35 Not Available Main O ffice [address] [address], [place], [address], 09/08/2024 16:14:42 09/30/19 25 09/30/2024 extract mixer test* Unknown Analyte 40 Not Available Main O ffice [address] [address], [place], [address], 09/08/2024 16:14:42 09/30/19 25 09/30/2024 extract mixer test* Unknown Analyte 30 Not Available Main O ffice [address] [address], [place], [address], 09/08/2024 16:14:42 09/30/19 25 09/30/2024 extract mixer test* Unknown Analyte 35 Not Available Main O ffice [address] [address], [place], [address], 09/08/2024 16:14:42 09/30/19 25 09/30/2024 extract mixer test* Unknown Analyte 30 Not Available Main O ffice [address], [address], 09/08/2024 16:14:42 09/30/19 25 09/30/2024 visua l acuit y* Status if not performed Peg howe ed/def erred Not Available Main Office [address] [address], [place], [address], 09/08/2024 16:14:41 09/30/19 25 09/30/2024 visua l acuit y* Opthamologis t Name Dr Haile hernandes Not Available Main Office [address] [address], [place], [address], 09/08/2024 16:14:41 09/30/19 25 09/30/2024 visua l acuit y* Date of Last Appointment 2023 Not Available Main Office [address] [address], [place], [address], 09/08/2024 16:14:41 09/13/19 24 09/13/2023 audio gram No observ ation record ed. [facility] Main Office [address] [address], [place], [address], 09/13/2023 15:16:48 09/13/19 24 09/13/2023 elect jourdanar diogr am No observ ation record ed. [facility] Main Office [address] [address], [place], [address], 09/13/2023 15:14:44 09/13/19 24 09/13/2023 ankle brach ial index No observ ation record ed. [facility] Main Office [address] [address], [place], [address], 09/13/2023 15:14:59 09/19/19 24 09/19/2023 NM, myoca rdial perfu kay scan, w/ stres s No observ ation record ed. [facility] [address] [place], [address], 09/20/2023 09:07:00 09/19/19 24 09/19/2023 trish connelly cardi olite stres s test (PROC ) No observ ation record ed. [facility] [address] [place], [address], 09/20/2023 09:06:47 10/23/19 24 10/23/2023 CT, chest , w/wo contr ast No observ ation record ed. [facility] [address] [place], [address], 10/24/2023 08:26:02 10/27/19 24 10/27/2023 XR, chest , 2 view No observ ation record ed. [facility] [address] [facility] , [place], [address], 10/27/2023 22:01:06 11/16/19 24 11/16/2023 MAMMO , scree jose guadalupe, bilat eral No observ ation record ed. [facility] [address] [place], [address], 11/16/2023 14:19:48 02/01/20 24 02/01/2024 XR, chest , 2 view No observ ation record ed. [address] [place], [address], 03/24/2024 13:12:25 06/03/20 24 06/03/2024 DEXA No observ ation record ed. [facility] [address] [facility], [place], [address], 06/03/2024 15:01:22 08/13/20 24 08/13/2024 US, myrna x, kendra s, extre mity, compl ete No observ ation record ed. [facility] [address] [place], [address], 09/30/2024 16:14:18 08/25/20 24 08/25/2024 CT, abdom en, w/ contr ast No observ ation record ed. [facility] [address] [place], [address], 09/30/2024 16:14:17 09/08/19 25 09/30/2024 audio gram No observ ation record ed. [facility] Main Office [address], [place], [address], 09/30/2024 16:19:40 09/08/19 25 09/30/2024 austyn nagel am No observ ation record ed. [facility] Main Office [address], [place], [address], 09/30/2024 16:19:43 09/08/19 25 09/30/2024 ankle brach ial index No observ ation record ed. [facility] Main Office [address], [place], [address], 09/30/2024 16:19:58 09/19/19 25 09/19/2024 XR, hip + pelvi s, unila teral , 2 or 3 view No observ ation record ed. [facility] [address] [place], [address], 09/30/2024 16:14:16 11/18/19 25 11/17/2024 MAMMO , scree jose guadalupe, bilat eral No observ ation record ed. [facility] [address], [place], [address], 11/17/2024 12:35:18 Result Notes None recorded. 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 Dede Eckles null, [place] 14:10:26 Obstruct steve sleep apnea syndrome 20140647 Active 2020 Dede [place] 14:10:46 Atrial fibrilla tion 40583631 Active 2020 Dede [place]les [place] 14:10:57 Benign essentia l hyperten kay 7976012 Active 2020 Dede [place]les [place] 1 14:11:05 Continuo us positive airway pressure ventilat ion treatmen t Active 2020 Dede [place]les [place] 1 14:12:09 Osteopor osis 24622885 Active 2020 Dede Eckles [place] 1 14:14:12 Bone density scan 957536102 Active 2019 5 severe osteoporo sis, 02/07/2022 osteopeni a Dede Eckles [place] 2 10:19:22 Obesity 021075073 Active 2020 Dede Eckles [place] 1 14:22:09 Arthriti s 7590236 Active 2020 Dede Eckles [place] 1 14:22:16 Polyp of colon 89111061 Completed 202009/03/2020 Dede Eckles [place] 1 14:22:33 Gastroes ophageal reflux disease 589517438 Active 2020 Dede [place]les [place] 1 14:22:44 Persiste nt insomnia 366884618 Active 2020 Dede [place] 1 14:23:02 Transien t cerebral ischemia 409005317 Active 2020 Dede [place]les [place] 1 14:23:36 Colonosc opy Active 2021 colon polyp rec repeat 3 years Dede Eckles [place] 4 12:15:19 Ophthalm ic examinat ion and evaluati on Active 2021 DR Stroud 10/17/2022 Dede [place]les [place] 3 11:35:51 Renal mass 151034206 Active 2022 Isela Jeter MD [address] [facility], [address], [place], [address], [place] 3 14:18:33 Notes:Some problems listed i n Documents: #[id number], #[id number] could not be added to this patient's [...] Name and Address Organization Details Recorded Time 60789 DuoNeb medicatio n palpitati ons Not available Not available 09/03/2020 60042 9 RxNorm Dede Cornell null, [place] - [...] Updated DateTime 4 157.48 cm 42.8 kg/m2 429209. 61 g 64 /min 12 /min 120 mm[Hg] 60 mm[Hg] [place] 4 14:02:01 Date Recorded Body height Body mass index (BMI) Body weight Heart rate Respiratory rate Systolic blood pressure Diastolic blood pressure Provider Name and Address Organization Details Last Updated DateTime 5 157.48 cm 43.2 kg/m2 831125. 8 g 72 /min 12 /min 130 mm[Hg] 68 mm[Hg] Dede CHATMAN - MAEGAN JETERDELL 5 15:23:43 Date Recorded Body height Body mass index (BMI) Body weight Heart rate Respiratory rate Systolic blood pressure Diastolic blood pressure Provider Name and Address Organization Details Last Updated DateTime 4 157.48 cm 43.3 kg/m2 470266. 39 g 72 /min 12 /min 128 mm[Hg] 60 mm[Hg] Dede CHATMAN - STEFFANY, [place]SE[place] 4 13:23:17 Date Recorded Body height Body mass index (BMI) Body weight Heart rate Respiratory rate Systolic blood pressure Diastolic blood pressure Provider Name and Address Organization Details Last Updated DateTime 4 157.48 cm 42.4 kg/m2 259428. 43 g 72 /min 12 /min 122 mm[Hg] 62 mm[Hg] Dede CHATMAN - STEFFANY, ISELA 4 12:30:41 Date Recorded Body height Body mass index (BMI) Body weight Heart rate Respiratory rate Systolic blood pressure Diastolic blood pressure Provider Name and Address Organization Details Last Updated DateTime 4 157.48 cm 42.4 kg/m2 775413. 43 g 72 /min 12 /min 132 [...] Or The Highest Degree You Have Received? 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 DQ3839-4 Information not available 05/12/2021 Do you have [...] ISELA 10/02/2023 15:52:55 Pneumococcal conjugate PCV20, polysaccharide [id number] conjugate, adjuvant, PF 4 [place] [address] [place] [address], [address], [place] 03/24/2024 13:12:20 Past Encounters Encounter ID Performer Location Encounter Start Date Encounter Closed Date Diagnosis/Indication Diagnosis SNOMED-CT Code Diagnosis ICD10 Code Diagnosis Note [id number] Isela Jeter MD MAIN OFFICE [address] [facility] [address] [place] [address] 09/13/2020 13:55:52 09/13/2020 16:04:25 Acute otitis media 4490792 H66.91 Right ear canal red and painful Arthritis 7257232 M19.90 back, hips, knees and right shoulder. Atrial fibrillation 4943 6004 I48.91 intermitte nt on anticoagul ation. Benign ess ential hypertension 8220474 I10 stable Chronic ob structive pulmonary disease 31205606 J44.9 stable Gastroesop hageal reflux disease 785001168 K21.00 stable Obesity 813585513 E66.9 weight loss over 30 pounds is needed. Obstructiv e sleep apnea syndrome 90831326 G47.33 use CPAP Osteoporosis 32841931 M8 1.0 on prolia. Currently has osteopenia . Next DEXA is due in 2021. Persistent insomnia 191 13513 G47.09 stable Transient cerebral ischemia 475800243 G45.9 no recent episode. [id number] Isela Jeter MD MAIN OFFICE [address] [address] 01/17/2021 11:49:32 01/17/2021 12:21:05 Arthritis 1715735 M19.90 back, hips, knees and right shoulder. Atrial fibrillation 4943 6004 I48.91 intermitte nt on anticoagul ation. Benign ess ential hypertension 0213059 I10 stable Chronic ob structive pulmonary disease 94592501 J44.9 stable Gastroesop hageal reflux disease 434988239 K21.00 stable Obesity 546133339 E66.9 weight loss over 30 pounds is needed. Obstructiv e sleep apnea syndrome 59755513 G47.33 use CPAP Osteoporosis 06714009 M8 1.0 on prolia. Currently has osteopenia . Next DEXA is due in 2021. Persistent insomnia 1918 22611 G47.09 stable Transient cerebral ischemia 832589777 G45.9 no recent episode. [id number] Isela Jeter MD MAIN OFFICE [address] [facility], [address] [address] 05/12/2021 14:12:54 05/12/2021 16:04:16 Adult health examination 397935473 Z00.00 Atrial fibrillation 4943 6004 I48.91 intermitte nt on anticoagul ation. Benign ess ential hypertension 2309876 I10 stable Chronic ob structive pulmonary disease 55386547 J44.9 stable Gastroesop hageal reflux disease 429244588 K21.00 stable Obesity 130490325 E66.9 weight loss over 42 pounds is needed. Obstructiv e sleep apnea syndrome 34126067 G47.33 use CPAP Osteoporosis 53397057 M8 1.0 on Prolia. Currently has osteopenia . Next DEXA is due in 2021. Persistent insomnia 1918 16185 G47.09 stable--im proved on current medication . Transient cerebral ischemia 468164096 G45.9 no recent episode. Pain of ri ght shoulder joint 5902140615 9572477 M25.511 the patient had a listing of a plate after a fall. She will be having surgery on the right shoulder and is cleared for surgery at this time. Varicose v eins of bilateral lower limbs 1402058201 7690773 I83.93 left> right [id number] Isela Jeter MD MAIN OFFICE [address] [facility], [facility] [address] [place] [address] 08/04/2021 14:46:52 08/04/2021 16:43:35 Arthritis 6727734 M19.90 back, hips, knees and right shoulder. Atrial fibrillation 4943 6004 I48.91 intermitte nt on anticoagul ation. Benign ess ential hypertension 0086553 I10 stable Chronic ob structive pulmonary disease 23783307 J44.9 stable Gastroesop hageal reflux disease 397139031 K21.00 stable Obesity 789338249 E66.9 weight loss over 42 pounds is needed. Osteoporosis 25186041 M8 1.0 on Prolia. Currently has osteopenia . Next DEXA is due in 2021. Persistent insomnia 1918003 G47.09 stable--im proved on current medication . Transient cerebral ischemia 248678179 G45.9 no recent episode. Dysarthria 4735252 R47.1 Carotid duplex scan. [id number] Isela Jeter MD MAIN OFFICE [address] [facility], [facility] [address] [place] [address] 12/07/2021 11:34:04 12/07/2021 12:28:45 Chronic constipation 857686856 K59.09 Atrial fibrillation 4943 6004 I48.91 intermitte nt episodes and she remains on anticoagul ation with Eliquis. Benign ess ential hypertension 9927178 I10 stable Chronic ob structive pulmonary disease 84079413 J44.9 stable Gastroesop hageal reflux disease 374927713 K21.00 stable Obesity 319251000 E66.9 weight loss over 42 pounds is needed. Obstructiv e sleep apnea syndrome 41796163 G47.33 use CPAP Osteoporosis 21049284 M8 1.0 on Prolia. Currently has osteopenia . Next DEXA is due in 2021. Persistent insomnia 1918 64458 G47.09 stable--im proved on current medication . Transient cerebral ischemia 537514597 G45.9 no recent episode. [id number] Isela Jeter MD MAIN OFFICE [address] [facility], [address] [address] 06/07/2022 15:05:56 06/07/2022 16:39:07 Adult health examination 111923777 Z00.00 Benign ess ential hypertension 4521215 I10 stable Atrial fibrillation 4943 6004 I48.91 intermitte nt episodes and she remains on anticoagul ation with Eliquis. Arthritis 3743762 M19.90 back, hips, knees and right shoulder. Chronic ob structive pulmonary disease 41575005 J44.9 stable Gastroesop hageal reflux disease 844858137 K21.00 stable Obstructiv e sleep apnea syndrome 37990275 G47.33 use CPAP Osteoporosis 59273378 M8 1.0 on Prolia. Currently has osteopenia . Next DEXA is due in 2021. Persistent insomnia 1918 46606 G47.09 stable--im proved on current medication . Transient cerebral ischemia 231034602 G45.9 no recent episode. Pain in left foot 100793 0041 45288 M79.672 heard a pop lateral arch pain metatarsal . Suspect fracture. She plans to see humidifier operator . Obesity 322043825 E66.9 weight loss over 52 pounds is needed. [id number] Isela Jeter MD MAIN OFFICE [address] [facility], [facility] [address] [place] [address] 10/11/2022 13:44:48 10/11/2022 14:31:53 Arthritis 9876375 M19.90 back, hips, knees and right shoulder. Atrial fibrillation 4943 6004 I48.91 intermitte nt episodes and she remains on anticoagul ation with Eliquis. Benign ess ential hypertension 3850838 I10 stable Chronic ob structive pulmonary disease 09684463 J44.9 stable Gastroesop hageal reflux disease 565709522 K21.00 stable Obesity 532648840 E66.9 weight loss over 52 pounds is needed. Osteoporosis 59451116 M8 1.0 on Prolia. Currently has osteopenia . Next DEXA is due in 2021. Persistent insomnia 1918003 G47.09 stable--im proved on current medication . Transient cerebral ischemia 116990721 G45.9 no recent episode. Renal mass 551492859 N28 .89 make sure it is a right kidney cyst and not a mass.Abdom en and Pelvis CT scan was scheduled. Diverticulitis 523139744 K57.92 under treatment. Abdomen and Pelvis CT scan was scheduled. [id number] Isela Jeter MD MAIN OFFICE [address] [facility], [address] [address] 10/09/2022 11:46:57 10/09/2022 12:01:20 Arthritis 8624475 M19.90 back, hips, knees and right shoulder. Atrial fibrillation 4943 6004 I48.91 intermitte nt episodes and she remains on anticoagul ation with Eliquis. Benign ess ential hypertension 0586624 I10 stable Gastroesop hageal reflux disease 735363260 K21.00 stable Obesity 276148117 E66.9 weight loss over 52 pounds is needed. Osteoporosis 32155799 M8 1.0 on Prolia. Currently has osteopenia . Next DEXA is due in 2021. Diverticulitis 943812552 K57.92 Obstructiv e sleep apnea syndrome 30751762 G47.33 use CPAP Persistent insomnia 1918 30268 G47.09 stable--im proved on current medication . [id number] Isela Jeter MD MAIN OFFICE [address] [facility], [facility] [address] [place] [address] 03/28/2023 14:03:27 03/28/2023 14:41:34 Arthritis 3350020 M19.90 back, hips, knees and right shoulder. Atrial fibrillation 4943 6004 I48.91 intermitte nt episodes and she remains on anticoagul ation with Eliquis. Chronic ob structive pulmonary disease 42184686 J44.9 stable Gastroesop hageal reflux disease 915141057 K21.00 stable Obesity 532579928 E66.9 weight loss over 52 pounds is needed. Osteoporosis 63982867 M8 1.0 on Prolia. Currently has osteopenia . Next DEXA is due in 2021. Persistent insomnia 1918 58870 G47.09 stable--im proved on current medication . Transient cerebral ischemia 770804762 G45.9 no recent episode. Atrophic vaginitis 55542 000 N95.2 [id number] Isela Jeter MD MAIN OFFICE [address] [address] 09/13/2023 13:42:49 09/13/2023 15:35:06 Adult health examination 219281527 Z00.00 Arthritis 0720928 M19.90 back, hips, knees and right shoulder. Medrol pack for October see above. Atrial fibrillation 4943 6004 I48.91 intermitte nt episodes and she remains on anticoagul ation with Eliquis. Benign ess ential hypertension 1794319 I10 stable Chronic ob structive pulmonary disease 08506682 J44.9 stable Gastroesop hageal reflux disease 292128600 K21.00 stable Obesity 640198754 E66.9 weight loss over 52 pounds is needed. Obstructiv e sleep apnea syndrome 13773537 G47.33 use CPAP Osteoporosis 30400818 M8 1.0 on Prolia. Currently has osteopenia . Next DEXA is due in 2021. Persistent insomnia 1918 92931 G47.09 stable--im proved on current medication . Transient cerebral ischemia 836594124 G45.9 no recent episode. [id number] Isela Jeter MD MAIN OFFICE [address] [address] 12/17/2023 13:12:42 12/17/2023 13:55:52 Arthritis 6641950 M19.90 back, hips, knees and right shoulder. Medrol pack for October see above. Atrial fibrillation 4943 6004 I48.91 intermitte nt episodes and she remains on anticoagul ation with Eliquis. Benign ess ential hypertension 0332771 I10 stable Chronic ob structive pulmonary disease 27761530 J44.9 stable Gastroesop hageal reflux disease 264189984 K21.00 stable Obesity 645370151 E66.9 weight loss over 52 pounds is needed. Obstructiv e sleep apnea syndrome 06246165 G47.33 use CPAP Osteoporosis 44678560 M8 1.0 on Prolia. Currently has osteopenia . Next DEXA is due in 2021. Persistent insomnia 1918 62640 G47.09 stable--im proved on current medication . [id number] Isela Jeter MD MAIN OFFICE [address] [address] 03/24/2024 12:04:02 03/24/2024 13:24:40 Administration of pneumococcal vaccine 15064347 Z23 Arthritis 7605868 M19.90 back, hips, knees and right shoulder. Medrol pack for October see above. Atrial fibrillation 4943 6004 I48.91 intermitte nt episodes and she remains on anticoagul ation with Eliquis. Benign ess ential hypertension 9830864 I10 stable Gastroesop hageal reflux disease 558061540 K21.00 stable Obesity 844083393 E66.9 weight loss over 52 pounds is needed. Obstructiv e sleep apnea syndrome 05430064 G47.33 use CPAP Osteoporosis 59220827 M8 1.0 on Prolia. Currently has osteopenia . Next DEXA is due in 2021. Persistent insomnia 1918 93057 G47.09 stable--im proved on current medication . Transient cerebral ischemia 063267335 G45.9 no recent episode. [id number] Isela Jeter MD MAIN OFFICE [address] [address] 06/30/2024 13:23:48 06/30/2024 14:30:06 Atrial fibrillation 52219945 I48.91 intermitte nt episodes and she remains on anticoagul ation with Eliquis. Benign ess ential hypertension 4667581 I10 stable Chronic ob structive pulmonary disease 52528849 J44.9 stable Gastroesop hageal reflux disease 767744405 K21.00 stable Obesity 247793915 E66.9 weight loss over 52 pounds is needed. Obstructiv e sleep apnea syndrome 08678841 G47.33 use CPAP Ophthalmic examination and evaluation 41756692 Z01.00 Osteoporosis 63810156 M8 1.0 on Prolia. Currently has osteopenia . Next DEXA is due in 2021. Persistent insomnia 1918 30067 G47.09 stable--im proved on current medication . Transient cerebral ischemia 758361956 G45.9 no recent episode. [id number] Isela Jeter MD MAIN OFFICE [address] [facility], [address] [place] [address] 09/30/2024 15:11:19 10/01/2024 08:03:22 Adult health examination 830508000 Z00.00 Arthritis 0007629 M19.90 back, hips, knees and right shoulder. Atrial fibrillation 4943 6004 I48.91 intermitte nt episodes and she remains on anticoagul ation with Eliquis. Chronic ob structive pulmonary disease 52814802 J44.9 stable Gastroesop hageal reflux disease 938261714 K21.00 stable Obesity 736675773 E66.9 weight loss over 46 pounds is needed. Obstructiv e sleep apnea syndrome 27658774 G47.33 use CPAP Osteoporosis 05958221 M8 1.0 on Prolia. Currently has osteopenia . Persistent insomnia 1918 33523 G47.09 stable--im proved on current medication . Renal mass 268502075 N28 .89 make sure it is a right kidney cyst and not a mass.Abdom en and Pelvis CT scan was scheduled. Transient cerebral ischemia 335687530 G45.9 no recent episode. Nerve root disorder [...] Name 09/13/2023 1 [employer] Cristela Armandoter [id number] 2 [id number] 42 Cristela Kirk 09/13/2023 2 [facility] Cristela Kirk [id number] Cristela Kirk 12/17/2023 1 [employer]-[place] Cristela Armandoter [id number] 42 Cristela Kirk 12/17/2023 2 [facility] Cristela Kirk [id number] [phone] Cristela Kirk 03/24/2024 1 [employer] Cristela Kirk [id number] 42 Cristela Kirk 03/24/2024 2 [employer] Cristela Kirk [id number] [phone] Cristela Kirk 06/30/2024 1 [employer] [place] Cristela Kirk [id number] 42 Cristela Kirk 06/30/2024 2 [employer] Cristela Kirk [id number] [phone] Cristela Kirk 09/30/2024 1 [employer] Cristela Kirk [id number] 42 Cristela Kirk 09/30/2024 2 [employer] Cristela Kirk [id number] [phone] Cristela Kirk Notes Date Note Type [...] if she still needs to see a printing roller polisher. She has been having vaginal dryness with [...] states she has an appointment with the humidifier operator and wants to see him for recommendations.Plan: See humidifier operator as patient desires. Enrolled in CARE program [...] R shoulder and remove plate, 05/17/[address] [facility] [address] Spence. Asking about her eliquis has [...] HDL size is 9.3 TG/HDL-c is 1.9. UaapwxwykkB1y is 5.1 % indicating the average blood sugar is 100 Vitamin D level is 31.1. Plan: Has insulin resistance --recommended weight loss and limiting of sugars in the diet. COPD- New dx with PFT 05/25/2020 Moderately severe Obstructive Airway Disease. Seeing [facility]( was seeing [facility] [employer] [facility] prior). The pulmonary function tests show air [...] the omeprazole. Plan: Omeprazole 40 mg bid Vbyle-Fviuesbyy-O shoulder, back, neck, knees.Plan: Monitor over time. [...] Eliquis.Plan: Continue anticoagulation. Isela Jeter MD [address] [facility],[address], [place], [address], ISELA GOSS 09/13/2023 15:17:40 12/17/2023 text/html States [...] if she still needs to see a printing roller polisher. She has been having vaginal dryness with [...] states she has an appointment with the humidifier operator and wants to see him for recommendations.Plan: See humidifier operator as patient desires. Enrolled in CARE program [...] R shoulder and remove plate, 05/17/[address] [facility] [address] Spence. Asking about her eliquis has [...] HDL size is 9.3 TG/HDL-c is 1.9. NupnvksycfP3u is 5.1 % indicating the average blood sugar is 100 Vitamin D level is 31.1. Plan: Has insulin resistance --recommended weight loss and limiting of sugars in the diet. COPD- New dx with PFT 05/25/2020 Moderately severe Obstructive Airway Disease. Seeing [facility]( was seeing [facility] [employer] [facility] prior). The pulmonary function tests show air [...] the omeprazole. Plan: Omeprazole 40 mg bid Isfcy-Xdwkeywhi-R shoulder, back, neck, knees.Plan: Monitor over time. [...] A. fib with Eliquis.Plan: Continue anticoagulation. Isela Jteer MD [address] [facility],[address], [place], [address], LURDES Loera ALBERTOISELA ANNA 12/17/2023 13:35:09 03/24/2024 [...] if she still needs to see a printing roller polisher. She has been having vaginal dryness with [...] states she has an appointment with the humidifier operator and wants to see him for recommendations.Plan: See humidifier operator as patient desires. Enrolled in CARE program [...] R shoulder and remove plate, 05/17/[address] [facility] [address] Spence. Asking about her eliquis has [...] HDL size is 9.3 TG/HDL-c is 1.9. ImaxtxfxwtC6p is 5.1 % indicating the average blood sugar is 100 Vitamin D level is 31.1. Plan: Has insulin resistance --recommended weight loss and limiting of sugars in the diet. COPD- New dx with PFT 05/25/2020 Moderately severe Obstructive Airway Disease. Seeing [facility]( was seeing [facility] [employer] [facility] prior). The pulmonary function tests show air [...] the omeprazole. Plan: Omeprazole 40 mg bid Oprel-Aqsshogup-S shoulder, back, neck, knees.Plan: Monitor over time. [...] Eliquis.Plan: Continue anticoagulation. Isela Jeter MD [address] [facility],[address], [place], [address], ISELA GOSS 03/24/2024 13:17:21 06/30/2024 text/html L [...] if she still needs to see a printing roller polisher. She has been having vaginal dryness with [...] states she has an appointment with the humidifier operator and wants to see him for recommendations.Plan: See humidifier operator as patient desires. Enrolled in CARE program [...] R shoulder and remove plate, 05/17/[address] [facility] [address] Spence. Asking about her eliquis has [...] HDL size is 9.3 TG/HDL-c is 1.9. JxznsbrxvbB5y is 5.1 % indicating the average blood sugar is 100 Vitamin D level is 31.1. Plan: Has insulin resistance --recommended weight loss and limiting of sugars in the diet. COPD- New dx with PFT 05/25/2020 Moderately severe Obstructive Airway Disease. Seeing [facility]( was seeing [facility] [employer] [facility] prior). The pulmonary function tests show air [...] the omeprazole. Plan: Omeprazole 40 mg bid Pweky-Jtpkxxsac-B shoulder, back, neck, knees.Plan: Monitor over time. [...] Eliquis.Plan: Continue anticoagulation. Isela Jeter MD [address] [facility],[address], [place], [address], LURDES - ISELA JETER 06/30/2024 14:00:39 09/30/2024 text/html OA L knee bone on bone, injection did not do any good. She will be f/u with orthopedics and will consider joint replacement.Plan: f/u with orthopedics. The wegovy to expensive. Her butcher chicken and fish ordered Zepbound for her today.Plan: She will need to follow a diet with trying to lose weight. Says having terrible time with lower back pain, she is seeing [facility] [place] [place] spinal stenosis will get TORIBIO next week [...] if she still needs to see a printing roller polisher. She has been having vaginal dryness with [...] states she has an appointment with the humidifier operator and wants to see him for recommendations.Plan: See humidifier operator as patient desires. Enrolled in CARE program [...] R shoulder and remove plate, 05/17/[address] [facility] [address] Spence. Asking about her eliquis has [...] HDL size is 9.1 TG/HDL-c is 3.0. IucsgnucysL6g is 5.1 % indicating the average blood sugar is 100 Vitamin D level is 31.1. Plan: Has insulin resistance --recommended weight loss and limiting of sugars in the diet. COPD- New dx with PFT 05/25/2020 Moderately severe Obstructive Airway Disease. Seeing [facility]( was seeing [employer] [facility] [employer] [facility] prior). The pulmonary function tests show air [...] the omeprazole. Plan: Omeprazole 40 mg bid Bviyo-Byrdycplz-E shoulder, back, neck, knees.Plan: Monitor over time. [...] Eliquis.Plan: Continue anticoagulation. Isela Jeter MD [address] [facility] [address], [place], [address], ISELA GOSS 09/30/2024 16:23:26 OBGyn Episode No OBEpisode recorded.
[2025-02-01 13:58] LABS: Prothrombin Time 18.1 Seconds
== END 2025-02-01 15:26 | disposition home or self-care (01) ==
PROVIDERS: Emergency Provider Emergency Medicine
DX: R07.9 Chest pain, unspecified (principal)
CPT/HCPCS: 36415; 71046; 80048; 84484; 85025; 85610; 93005; 99283; 99284; 99285; A9270